=== PATIENT | female | born 1930 | race Caucasian/White ===

== ENCOUNTER 2018-03-16 10:31 | Inpatient (IN) | payer MEDICARE, BC ==
[~2018-03-16] VITALS: Ht 152.4 cm; Wt 76.9 kg
[~2018-03-16 10:31] MED LIST: BENZ1CAP34 PO; BRIM.2%O OU; CARV3.12 PO; CYMB60CA PO; DICL1GEL; DIOV40TA PO; EXCETAB2; FURO1TAB93 PO; GAS-80CH CHEW; HYDR10TA16 PO; K-TA10TA5 PO; MULTTAB4; OSTETAB4; PANT20 PO; VITA100020 IM; VITA500C PO
[2018-03-16 10:34] VITALS: BP 122/65; PULSE 99; RESP 17; TEMP 97.6; O2SAT 97
[2018-03-16] MEDS ORDERED: SODIUM CHLORIDE 0.9% FLUSH 10 ML FLUSH IV FLUSH PRN ×2 (11:15→14:15)
[2018-03-16] MEDS ORDERED: SODIUM CHLOR 0.9% 1000 ML INJ 1,000 ML IV SCH (11:15)
[2018-03-16 11:36] VITALS: PULSE 87; RESP 16; O2SAT 95
[2018-03-16] MEDS ORDERED: LATA0.002 EACH EYE (11:53)
[2018-03-16] MEDS ORDERED: DULO1CAP3 PO (11:53)
[2018-03-16] MEDS ORDERED: TIMO0.5S30 EACH EYE (11:53)
[2018-03-16] MEDS ORDERED: FURO20TA PO (11:53)
[2018-03-16] MEDS ORDERED: SODIUM CHLORID 0.9% 500 ML INJ 500 ML IV ONE (12:00)
[2018-03-16] MEDS ORDERED: IOHEXOL 350 MG/ML 10 ML VIAL (for RAD DIAG) IVCONTRAST ONE (12:06)
[2018-03-16 12:07] LABS: AUTOMATED NEUTROPHIL # 7.3 TH/MM3 (1.8-7.7); BASOPHIL % 0.3 % (0.0-2.0); EOSINOPHIL # 0.1 TH/MM3 (0-0.4); EOSINOPHIL % 0.6 % (0.0-4.0); HEMATOCRIT 32.2 % (35.0-46.0); HEMOGLOBIN 10.6 GM/DL (11.6-15.3); LYMPH % 7.2 % (9.0-44.0); LYMPHOCYTE # 0.7 TH/MM3 (1.0-4.8); MEAN CELL VOLUME 87.4 FL (80.0-100.0); MEAN CORPUSCULAR HEMOGLOBIN 28.6 PG (27.0-34.0); MEAN CORPUSCULAR HGB CONC 32.8 % (32.0-36.0); MEAN PLATELET VOLUME 7.8 FL (7.0-11.0); MONO % 12.9 % (0.0-8.0); MONOCYTE # 1.2 TH/MM3 (0-0.9); PLATELET COUNT 361 TH/MM3 (150-450); RED BLOOD COUNT 3.69 MIL/MM3 (4.00-5.30); RED CELL DISTRIBUTION WIDTH 15.3 % (11.6-17.2); WHITE BLOOD COUNT 9.2 TH/MM3 (4.0-11.0)
[2018-03-16 12:20] LABS: INTERNATIONAL NORMALIZED RATIO 1.1 RATIO; PROTHROMBIN TIME - PATIENT 11.3 SEC (9.8-11.6)
[2018-03-16 12:28] LABS: ALKALINE PHOSPHATASE 96 U/L (45-117); ALT (GPT) 16 U/L (10-53); TOTAL BILIRUBIN ADULT 0.9 MG/DL (0.2-1.0); TOTAL PROTEIN 6.3 GM/DL (6.4-8.2)
[2018-03-16 12:29] LABS: ALBUMIN 2.2 GM/DL (3.4-5.0); AST (GOT) 43 U/L (15-37); BLOOD UREA NITROGEN 16 MG/DL (7-18); CALCIUM 8.9 MG/DL (8.5-10.1); CHLORIDE 93 MEQ/L (98-107); CREATININE 0.88 MG/DL (0.50-1.00); GLOMERULAR FILTRATION RATE 61 ML/MIN (>89); GLUCOSE,RANDOM 115 MG/DL (74-106); SODIUM (NA) 132 MEQ/L (136-145)
--- NOTE | 2018-03-16 12:33 | PD ---
HPI Chief Complaint: GI Complaint Time Seen by Provider: 11:27 Travel History International Travel<30 days: No Contact w/Intl Traveler<30days: No Traveled to known affect area: No History of Present Illness HPI 87-year-old female that presents to the ED for evaluation of abdominal cramping , diarrhea, hemorrhoids, ulcers to her buttocks as well as loss of 30 pounds without trying. Patient has a significant history of colitis, diverticulitis and proctitis and follows with different doctors for this. She apparently was last seen 3 weeks ago at [facility] where she had a workup and showed that she may have colitis and she was started on Flagyl and other medications. She was doing okay but for the past week she has been progressively worsening. The noticed that she has been feeling more weak. Family provides most of the information. Patient complains of abdominal cramping when she has a stool when she had abdominal cramping this morning. Per family she has had foul-smelling stool for the past couple of days. She currently complains of no pain. Per family she is been losing her appetite. She does have a history of non-Hodgkin's lymphoma and appears to follow with multiple doctors were all in usually [facility]. She apparently supposed to follow with Dr. Hayden for colorectal next week but the family is concerned that the patient is not improving so they wanted to come here to get checked. Patient states that she has been having chills and sweats. Per family and patient last had chemo last year. She follows with oncologist who recently had a PET scan that only show one spot in her back and currently she is not taking any chemotherapy. She denies any other medical issues. She takes no blood thinners. They have not noticed any blood in her stool but noticed that is very foul-smelling and she gets it frequently. PFSH Past Medical History Arthritis: Yes Blood Disorders: No Depression: Yes Cancer: Yes (LEFT BREAST CANCER. NON-HODKINS LYMPHOMA) Cardiovascular Problems: Yes Chemotherapy: No Congestive Heart Failure: Yes COPD: Yes Diabetes: No Diminished Hearing: No Endocrine: No Gastrointestinal Disorders: Yes GERD: Yes Glaucoma: Yes Genitourinary: No Hiatal Hernia: Yes Hypertension: Yes Medical other: Yes (DIVERTICULITIS, DIVERLICULOSIS, COLITIS ) Musculoskeletal: Yes (HERNIATED DISC LOWER BACK) Neurologic: No Psychiatric: Yes Reproductive: No Respiratory: Yes Radiation Therapy: Yes (1994 FOR BREAST CA) Thyroid Disease: No ?: Not Menopausal: Yes Past Surgical History Abdominal Surgery: No AICD: No Cardiac Surgery: No Cholecystectomy: Yes Ear Surgery: No Endocrine Surgery: No Eye Surgery: Yes (CATARACT SURGERY) Genitourinary Surgery: No Gynecologic Surgery: No Joint Replacement: Yes (BILAT KNEE REPLACEMENT) Oral Surgery: No Pacemaker: No Thoracic Surgery: No Tonsillectomy: Yes Other Surgery: Yes (L LUMPECTOMY) Social History Alcohol Use: Yes (BEER OR WINE OCCASIONALLY) Tobacco Use: No Substance Use: No Allergies-Medications (Allergen,Severity, Reaction): Coded Allergies: Sulfa (Sulfonamide Antibiotics) (Unverified Allergy, Severe, Rash, 03/16/18) Reported Meds & Prescriptions Reported Meds & Active Scripts Active Reported Latanoprost Opth Drops (Latanoprost) 0.005% Drops 1 Drop EACH EYE HS Refrigerate until opened. Timolol Opth Drops 0.5 % Soln 1 Drop EACH EYE BID Furosemide 20 Mg Tab 20 Mg PO DAILY Duloxetine DR (Duloxetine HCl) 60 Mg Capdr 60 Mg PO DAILY Review of Systems Except as stated in HPI: all other systems reviewed are Neg Physical Exam Narrative GENERAL: SKIN: Warm and dry. HEAD: Atraumatic. Normocephalic. EYES: Pupils equal and round. No scleral icterus. No injection or drainage. ENT: No nasal bleeding or discharge. Mucous membranes pink and moist. Tongue is midline. No uvula deviation. NECK: Trachea midline. No JVD. CARDIOVASCULAR: Regular rate and rhythm. No murmurs, S3, S4. RESPIRATORY: No accessory muscle use. Clear to auscultation. Breath sounds equal bilaterally. GASTROINTESTINAL: Abdomen soft, non-tender, nondistended. Hepatic and splenic margins not palpable. Rectal exam: Done with female nurse present at all times. She has multiple significant hemorrhoids external and internal noted on exam. No active bleeding or red blood noted Hemoccult was done and was positive. Foul-smelling stool. Patient has a least 3 different ulcer-like lesions on her buttocks around the rectum. MUSCULOSKELETAL: Extremities without clubbing, cyanosis, or edema. No obvious deformities. Full range of motion of the upper and lower extremities bilaterally. 2+ pulses bilaterally. NEUROLOGICAL: Awake and alert. No obvious cranial nerve deficits. Motor grossly within normal limits. Five out of 5 muscle strength in the arms and legs. Normal speech. PSYCHIATRIC: Appropriate mood and affect; insight and judgment normal. Data Data Last Documented VS Vital Signs Date Time Temp Pulse Resp B/P (MAP) Pulse Ox O2 Delivery O2 Flow Rate FiO2 03/16/18 11:36 87 16 95 Room Air 03/16/18 10:34 97.6 122/65 (84) Orders Orders Complete Blood Count With Diff (03/16/18 11:15) Comprehensive Metabolic Panel (03/16/18 11:15) Lipase (03/16/18 11:15) Lactic Acid (03/16/18 11:15) Prothrombin Time / Inr (Pt) (03/16/18 11:15) Act Partial Throm Time (Ptt) (03/16/18 11:15) Urinalysis - C+S If Indicated (03/16/18 11:15) Iv Access Insert/Monitor (03/16/18 11:15) Ecg Monitoring (03/16/18 11:15) Oximetry (03/16/18 11:15) Sodium Chlor 0.9% 1000 Ml Inj (Ns 1000 M (03/16/18 11:15) Sodium Chloride 0.9% Flush (Ns Flush) (03/16/18 11:15) Electrocardiogram (03/16/18 11:15) Blood Culture (03/16/18 11:15) Sodium Chlorid 0.9% 500 Ml Inj (Ns 500 M (03/16/18 12:00) Type And Screen (03/16/18 11:50) Enteric Path (Stool) (03/16/18 11:50) Labs Laboratory Tests Test 03/16/18 11:30 White Blood Count 9.2 TH/MM3 Red Blood Count 3.69 MIL/MM3 Hemoglobin 10.6 GM/DL Hematocrit 32.2 % Mean Corpuscular Volume 87.4 FL Mean Corpuscular Hemoglobin 28.6 PG Mean Corpuscular Hemoglobin Concent 32.8 % Red Cell Distribution Width 15.3 % Platelet Count 361 TH/MM3 Mean Platelet Volume 7.8 FL Neutrophils (%) (Auto) 79.0 % Lymphocytes (%) (Auto) 7.2 % Monocytes (%) (Auto) 12.9 % Eosinophils (%) (Auto) 0.6 % Basophils (%) (Auto) 0.3 % Neutrophils # (Auto) 7.3 TH/MM3 Lymphocytes # (Auto) 0.7 TH/MM3 Monocytes # (Auto) 1.2 TH/MM3 Eosinophils # (Auto) 0.1 TH/MM3 Basophils # (Auto) 0.0 TH/MM3 CBC Comment DIFF FINAL Differential Comment Prothrombin Time 11.3 SEC Prothromb Time International Ratio 1.1 RATIO Activated Partial Thromboplast Time 26.4 SEC Blood Urea Nitrogen 16 MG/DL Creatinine 0.88 MG/DL Random Glucose 115 MG/DL Total Protein 6.3 GM/DL Albumin 2.2 GM/DL Calcium Level 8.9 MG/DL Alkaline Phosphatase 96 U/L Aspartate Amino Transf (AST/SGOT) 43 U/L Alanine Aminotransferase (ALT/SGPT) 16 U/L Total Bilirubin 0.9 MG/DL Sodium Level 132 MEQ/L Potassium Level 4.7 MEQ/L Chloride Level 93 MEQ/L Carbon Dioxide Level 28.0 MEQ/L Anion Gap 11 MEQ/L Estimat Glomerular Filtration Rate 61 ML/MIN Lactic Acid Level 1.8 mmol/L Lipase 61 U/L [facility] Medical Decision Making Medical Screen Exam Complete: Yes Emergency Medical Condition: Yes Medical Record Reviewed: Yes Interpretation(s) CBC & BMP Diagram 03/16/18 11:30 Total Protein 6.3 L, Albumin 2.2 L, Calcium Level 8.9, Alkaline Phosphatase 96, Aspartate Amino Transf (AST/SGOT) 43 H, Alanine Aminotransferase (ALT/SGPT) 16, Total Bilirubin 0.9 Differential Diagnosis Acute diverticulitis versus colitis versus diarrhea versus generalized weakness versus cancer versus rectal bleeding versus GI bleed Narrative Course 87-year-old female that presents to the ED for evaluation of diarrhea and loss of weight. Patient was properly examined and was found to have signs and symptoms concerning for GI bleed. Rectal exam was done with female nurse present and does show Hemoccult positive. Very foul-smelling stool. Definite concern for infection versus GI bleed. Patient does have multiple hemorrhoids but there is no elena blood on the exam so this appears to be less likely related to this. She will be started on GI Protonix and IV fluids that she does appear to be somewhat dehydrated. Labs and imaging order. Case was discussed with my attending Dr. Cooper who evaluated the patient himself and recommends admission for GI bleed workup and possible diverticulitis as well as stool studies. My attending himself evaluated the patient and agrees with plan. Patient will be admitted to Dr. Morales who agrees to admission. HemaPrompt Point of Care Internal Pos. & Neg. Controls: Passed Fecal Specimen Occult Blood: Positive Diagnosis Primary Impression: GI bleed Qualified Codes: K92.2 - Gastrointestinal hemorrhage, unspecified Additional Impressions: Diarrhea Qualified Codes: R19.7 - Diarrhea, unspecified Weakness Admitting Information Admitting Physician Requests: Observation Georgi Reina Mar 16, 2018 12:33
[2018-03-16] MEDS ORDERED: PANTOPRAZOLE INJ 80 MG in SODIUM CHLORIDE 0.9% INJ 100 ML IV SCH (12:45)
[2018-03-16] MEDS ORDERED: DIATRIZOATE MEGLUM/DIATRIZOATE SOD 9 ML CUP ONE (12:50)
[2018-03-16] MEDS ORDERED: NALOXONE HCL 0.4 MG/ML AMP IV PUSH PRN (14:15)
[2018-03-16] MEDS ORDERED: ACETAMINOPHEN 325 MG TAB PO PRN (14:15)
[2018-03-16 14:23] VITALS: BP 124/62
--- NOTE | 2018-03-16 14:25 | HHI.HP ---
[facility] Primary Care Physician Unknown Admission Diagnosis acute GI bleed, Diarrhea, loss of weight Diagnoses: Chief Complaint: Abdominal pain, diarrhea, weight loss, lack of appetite Travel History International Travel<30 Days: No Contact w/Intl Traveler <30 Da: No Traveled to Known Affected Are: No History of Present Illness This is an 87-year-old female with extensive past medical history as stated below who presented to the emergency department complaining of abdominal cramping, diarrhea, hemorrhoids and ulcers to her buttocks as well as loss of 30 pounds in the past 2 months. The patient has significant history of colitis , diverticulitis and proctitis and follows up with different doctors for this. Apparently the patient was seen 3 weeks ago in the [facility] where she had a CT scan of the abdomen which showed colitis and was started on Flagyl as per the family report. The patient was doing fine until about 1 week ago when she was noted to be having diarrhea as well as abdominal cramping with decreased appetite. Family describes also foul-smelling stool with mucus. The patient currently complains of some nausea caused by the oral contrast that she is taking for the CT abdomen ordered by the emergency department physician and mild abdominal pain which is diffuse with distention. Patient family member states that this morning the patient had some stool mixed with bright red blood per rectum which she has been having. Family also describes the patient has been having chills and sweats. Per family and patient patient had chemo last year. The patient is not on blood thinners. Review of Systems As per HPI, other systems reviewed by me and negative Past Family Social History Past Medical History 1. Diverticulitis. 2. Diverticulosis. 3. Osteoarthritis of the neck. 4. Non-Hodgkin lymphoma status post chemotherapy. 5. History of breast cancer. 6. Perianal wounds. 7. History of cardiac arrest during a colonoscopic procedure. 8. Proctitis. 9. Congestive heart failure. Past Surgical History 1. The patient has a right-sided port. 2. Lumpectomy. 3. 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 4. Cholecystectomy. Reported Medications Reported Meds & Active Scripts Active Reported Latanoprost Opth Drops (Latanoprost) 0.005% Drops 1 Drop EACH EYE HS Refrigerate until opened. Timolol Opth Drops 0.5 % Soln 1 Drop EACH EYE BID Furosemide 20 Mg Tab 20 Mg PO DAILY Duloxetine DR (Duloxetine HCl) 60 Mg Capdr 60 Mg PO DAILY Allergies: Coded Allergies: Sulfa (Sulfonamide Antibiotics) (Unverified Allergy, Severe, Rash, 03/16/18) Active Ordered Medications Current Medications Medications (Trade) Dose Ordered Sig/Latoya Route Start Time Stop Time Status Last Admin (NS Flush) 2 ml UNSCH PRN IV FLUSH 03/16/18 11:15 03/16/18 11:50 Pantoprazole Sodium 80 mg/ Sodium Chloride 100 ml @ 10 mls/hr CONTINUOUS IV 03/16/18 12:45 03/16/18 12:59 Family History Since mother had polycystic kidney disease. Patient's father from unknown reasons. Social History The patient does not currently actively smoke. She is a former smoker and quit in 1997. The patient is a social drinker. Denies illicit drug use. The patient is a 1 and lives with her daughter. Physical Exam Vital Signs Vital Signs Date Time Temp Pulse Resp B/P (MAP) Pulse Ox O2 Delivery O2 Flow Rate FiO2 03/16/18 11:36 87 16 95 Room Air 03/16/18 10:34 97.6 99 17 122/65 (84) 97 Physical Exam GENERAL: This is a well-nourished, well-developed patient, in no apparent distress. SKIN: No rashes, ecchymoses or lesions. Cool and dry. right sided port without erythema or swelling. HEAD: Atraumatic. Normocephalic. No temporal or scalp tenderness. EYES: Pupils equal round and reactive. Extraocular motions intact. No scleral icterus. No injection or drainage. ENT: Nose without bleeding, purulent drainage or septal hematoma. Throat without erythema, tonsillar hypertrophy or exudate. Uvula midline. Airway patent. NECK: Trachea midline. No JVD or lymphadenopathy. Supple, nontender, no meningeal signs. CARDIOVASCULAR: Regular rate and rhythm without murmurs, gallops, or rubs. RESPIRATORY: Clear to auscultation. Breath sounds equal bilaterally. No wheezes , rales, or rhonchi. GASTROINTESTINAL: Abdomen soft, non-tender, nondistended. No hepato-splenomegaly , or palpable masses. No guarding. MUSCULOSKELETAL: Extremities without clubbing, cyanosis, or edema. No joint tenderness, effusion, or edema noted. No calf tenderness. Negative Homans sign bilaterally. NEUROLOGICAL: Awake and alert. Cranial nerves II through XII intact. Motor and sensory grossly within normal limits. Five out of 5 muscle strength in all muscle groups. Normal speech. : Perineal wounds without secretion. Large external hemorrhoid. Laboratory Laboratory Tests Test 03/16/18 11:30 White Blood Count 9.2 Red Blood Count 3.69 Hemoglobin 10.6 Hematocrit 32.2 Mean Corpuscular Volume 87.4 Mean Corpuscular Hemoglobin 28.6 Mean Corpuscular Hemoglobin Concent 32.8 Red Cell Distribution Width 15.3 Platelet Count 361 Mean Platelet Volume 7.8 Neutrophils (%) (Auto) 79.0 Lymphocytes (%) (Auto) 7.2 Monocytes (%) (Auto) 12.9 Eosinophils (%) (Auto) 0.6 Basophils (%) (Auto) 0.3 Neutrophils # (Auto) 7.3 Lymphocytes # (Auto) 0.7 Monocytes # (Auto) 1.2 Eosinophils # (Auto) 0.1 Basophils # (Auto) 0.0 CBC Comment DIFF FINAL Differential Comment Prothrombin Time 11.3 Prothromb Time International Ratio 1.1 Activated Partial Thromboplast Time 26.4 Blood Urea Nitrogen 16 Creatinine 0.88 Random Glucose 115 Total Protein 6.3 Albumin 2.2 Calcium Level 8.9 Alkaline Phosphatase 96 Aspartate Amino Transf (AST/SGOT) 43 Alanine Aminotransferase (ALT/SGPT) 16 Total Bilirubin 0.9 Sodium Level 132 Potassium Level 4.7 Chloride Level 93 Carbon Dioxide Level 28.0 Anion Gap 11 Estimat Glomerular Filtration Rate 61 Lactic Acid Level 1.8 Lipase 61 Date/Time Source Procedure Growth Status 03/16/18 11:30 Blood Peripheral Aerobic Blood Culture Pending Received 03/16/18 11:30 Blood Peripheral Anaerobic Blood Culture Pending Received 03/16/18 12:20 Stool Stool Pending Received Result Diagram: 03/16/18 1130 03/16/18 1130 Caprini VTE Risk Assessment Caprini VTE Risk Assessment: Mod/High Risk (score >= 2) VTE Pharm Contraindication: High risk for bleeding Caprini Risk Assessment Model Point Value = 1 Point Value = 2 Point Value = 3 Point Value = 5 Age 41-60 Minor surgery BMI > 25 kg/m2 Swollen legs Varicose veins or History of unexplained or recurrent spontaneous Oral contraceptives or hormone replacement Sepsis (< 1 month) Serious lung disease, including pneumonia (< 1 month) Abnormal pulmonary function Acute myocardial infarction Congestive heart failure (< 1 month) History of inflammatory bowel disease Medical patient at bed rest Age 61-74 Arthroscopic surgery Major open surgery (> 45 min) Laparoscopic surgery (> 45 min) Malignancy Confined to bed (> 72 hours) Immobilizing plaster cast Central venous access Age >= 75 History of VTE Family history of VTE Factor V Leiden Prothrombin [id number] Lupus anticoagulant Anticardiolipin antibodies Elevated serum homocysteine Heparin-induced thrombocytopenia Other congenital or acquired thrombophilia Stroke (< 1 month) Elective arthroplasty Hip, pelvis, or leg fracture Acute spinal cord injury (< 1 month) Prophylaxis Regimen Total Risk Factor Score Risk Level Prophylaxis Regimen 0-1 Low Early ambulation 2 Moderate Order ONE of the following: *Sequential Compression Device (SCD) *Heparin 5000 units SQ BID 3-4 Higher Order ONE of the following medications: *Heparin 5000 units SQ TID *Enoxaparin/Lovenox 40 mg SQ daily (WT < 150 kg, CrCl > 30 mL/min) *Enoxaparin/Lovenox 30 mg SQ daily (WT < 150 kg, CrCl > 10-29 mL/min) *Enoxaparin/Lovenox 30 mg SQ BID (WT < 150 kg, CrCl > 30 mL/min) AND/OR *Sequential Compression Device (SCD) 5 or more Highest Order ONE of the following medications: *Heparin 5000 units SQ TID (Preferred with Epidurals) *Enoxaparin/Lovenox 40 mg SQ daily (WT < 150 kg, CrCl > 30 mL/min) *Enoxaparin/Lovenox 30 mg SQ daily (WT < 150 kg, CrCl > 10-29 mL/min) *Enoxaparin/Lovenox 30 mg SQ BID (WT < 150 kg, CrCl > 30 mL/min) AND *Sequential Compression Device (SCD) Assessment and Plan Problem List: (1) Diarrhea ICD Code: R19.7 - Diarrhea, unspecified Status: Acute (2) Weakness ICD Code: R53.1 - Weakness Status: Acute (3) GI bleed ICD Code: K92.2 - Gastrointestinal hemorrhage, unspecified Status: Acute (4) CHF (congestive heart failure) ICD Code: I50.9 - Heart failure, unspecified (5) Glaucoma ICD Code: H40.9 - Unspecified glaucoma (6) Hyponatremia ICD Code: E87.1 - Hypo-osmolality and hyponatremia (7) Weight loss ICD Code: R63.4 - Abnormal weight loss Assessment and Plan 1. Abdominal pain/diarrhea/GI bleed Stool guaiac positive in the emergency department Follow-up CT abdomen and pelvis Pain control with oral Percocet if needed. Follow-up stool for C. difficile toxin PCR sent by ED. Continue Protonix drip. Clear liquid diet. Consult GI. 2. Weight loss Appetite decreased with close to 30 pounds weight loss in 2 months. Consult dietitian. 3. Hyponatremia/dehydration Likely due to hypovolemic hyponatremia due to decreased p.o. intake. Start on gentle IV fluids with normal saline. Monitor BMP. 4. Congestive heart failure Seems to be stable. Hold Lasix given dehydration. 5. Perianal wounds Consult wound care nurse. 6. Glaucoma Chronic. Seems to be stable. Continue latanoprost and timolol ophthalmic drops. 7. External hemorrhoid Patient has a large external hemorrhoid on exam. Consult colorectal surgery. Will consult Dr. Escalante who has previously seen the patient as an outpatient. 8. History of cardiac arrest Patient has had a cardiac arrest while having a colonoscopy. Monitor on telemetry. EKG reviewed by me shows sinus rhythm with a ventricular rate of 87 bpm, QTC of 417, no ST-T changes suggestive of active ischemia. DVT prophylaxis: SCDs, no chemoprophylaxis given positive stool guaiac and reports of GI bleeding. Code Status Full code Discussed Condition With Patient, family, ED physician. Problem Qualifiers (1) Diarrhea: Qualified Codes: R19.7 - Diarrhea, unspecified (2) GI bleed: Qualified Codes: K92.2 - Gastrointestinal hemorrhage, unspecified Cholo Bustos MD Mar 16, 2018 14:25
--- NOTE | 2018-03-16 14:50 | RADRPT ---
EXAM DATE: 03/16/2018 2:39 PM EDT AGE/SEX: 87 years / Female INDICATIONS: Abdominal pain, weakness and weight loss 30lbs. CLINICAL DATA: This is the patient's initial encounter. Patient reports that signs and symptoms have been present for 1 day and indicates a pain score of 3/10. MEDICAL/SURGICAL HISTORY: Cardiovascular disease. Hypertension. Chronic obstructive pulmonary disease. hiatal hernia, left breast cancer, non hodgkin's lymphoma, diverticulitis Cholecystectomy . ORAL CONTRAST: Prescribed oral contrast ingested. RADIATION DOSE: 12.09 CTDI (mGy) COMPARISON: No prior exams available for comparison. TECHNIQUE: Multiple contiguous axial images were obtained through the abdomen and pelvis following b olus infusion of 80 ml Omnipaque 350 (iohexol) nonionic water-soluble contrast as a single exam dos e. Prescribed oral contrast ingested. Using automated exposure control and adjustment of the mA and/ or kV according to patient size, the radiation dose was kept as low as reasonably achievable to obtai n optimal diagnostic quality images. FINDINGS: Lower Lungs: The visualized lower lungs are clear. Liver: There is a rounded area of decreased density involving the central portion of segment 4 of the liver adjacent to the gallbladder fossa. This measures 2.4 x 2.1 x 1.8 cm. There is no dilation of t he biliary tree. Gallbladder is surgically absent. Spleen: Homogeneous density without enlargement. Pancreas: There is a 1.5 cm cystic structure exophytic from the inferior margin of the pancreatic he ad. It is smoothly marginated. The pancreas is fatty replaced most pronounced within the pancreatic h ead. No ductal dilatation.. Kidneys: Normal in size and shape. 2 mm nonobstructing renal stone involving the lower pole the righ t kidney. A small cortical renal cyst involving the lower pole the right kidney. No evidence of mass or hydronephrosis. Adrenal Glands: Unremarkable. Aorta: The aorta and proximal iliac vessels are grossly unremarkable without aneurysmal dilation. Bowel/Mesentery: There is circumferential wall thickening involving the sigmoid colon and distal abby cending colon with mild stranding of the adjacent fat. Multiple diverticula are noted. The remaining bowel structures are unremarkable. No free air or free fluid. Stomach is unremarkable. Abdominal Wall: Intact. Retroperitoneum: No evidence of adenopathy in the retrocrural, para-aortic, or deep pelvic regions. Bladder: Contours are smooth. Reproductive Organs: No abnormal masses or calcifications seen. Inguinal: The inguinal region is unremarkable without evidence of adenopathy. Bony Structures: A scoliotic and degenerative spine.. CONCLUSION: 1. Acute distal descending and sigmoid inflammatory change. Differential diagnostic considerations i nclude ischemic colitis as well as ulcerative colitis. No perforation, abscess, or obstruction. 2. Nonspecific 2.4 cm area of decreased density involving the central portion of the liver. This may simply relate to focal fatty infiltration. I cannot exclude a mass. MRI could further differentiate. 3. 1.5 cm cystic lesion exophytic from the head of the pancreas projecting inferiorly. This is poorl y characterized on this style exam. At some point an MRI of the pancreas is suggested to further asse ss. 4. 2 mm nonobstructing right renal stone. Electronically signed by: Doroteo Donovan MD 03/16/2018 2:48 PM EDT
[2018-03-16 16:00] VITALS: BP 174/76; PULSE 95; RESP 18; TEMP 97.9; O2SAT 95
[2018-03-16] MEDS: MESALAMINE 250 MG CAP PO SCH ×2 (18:57→22:28)
--- NOTE | 2018-03-16 19:03 | MB ---
cc: Allen Alfonso MD, DATE: 03/16/2018 CHIEF COMPLAINT: Diarrhea, anal pain, abdominal cramping, rectal bleeding. HISTORY OF PRESENT ILLNESS: This patient is well known to me for many years. She has recently developed some colitis, which was seen in my office on sigmoidoscopy examination. At that time, she had fairly short segment proctitis in her rectum consistent with either ulcerative proctitis or Crohn's disease. The patient was treated with Canasa suppositories but she says because of the pain, she has stopped them. She then was seen by her underground roof bolter, Dr. Flores, who took some biopsies of the perianal skin because of pain and ulcerations in the skin that were superficial. She now has some holes posterior to her anal canal consistent with Crohn's or just skin breakdown from her diarrhea. Really, she says that her diarrhea is about twice a day, loose stool. Otherwise, she does leak whenever she sits, but she does have poor anal tone and large hemorrhoids. She did have a deep posterior fissure previously, consistent with either Crohn's disease or ulcerative colitis as well as her diarrhea. The patient's history dates back to a year or so ago when she was in [facility] and she developed a GI bleed consistent with diverticulosis. She underwent colonoscopy at that time had a complete documented cardiac arrest; however, was resuscitated. She has been unwilling and unable to have a colonoscopy since then. Of note, about 3 weeks ago, on 02/23/2018 I saw her in consultation in the emergency department at [facility] and at that time, she had superficial skin ulcerations around her perineum along with large hemorrhoids, along with this proctitis that was palpable once again. She was seen by gastroenterology, Dr. Allen Hernandez, who agreed with the Canasa suppositories. He also empirically started on Flagyl. She took the Flagyl, but did not take the Canasa suppositories for more than a week because she said she still had anal pain. She called my office about a week or so ago for oral mesalamine and a prescription was given; however, the patient said that her copay was $900, so she did not take it. She says that her abdominal pain simply consists of cramps 2 times a day when she has to move her bowels. Otherwise, she does not really have any pain. Her main pain is her anal pain and burning in the skin region. CT scan done in [facility] and here both showed left-sided colitis. This is not consistent with ischemic colitis as it has been going on for several months and has not worsened or improved. PAST MEDICAL HISTORY: Otherwise negative. FAMILY HISTORY: Otherwise negative. SOCIAL HISTORY: Otherwise negative. REVIEW OF SYSTEMS: Otherwise negative. She is otherwise fairly healthy, 87 years old with excellent mentation. She says that her strength has weakened and she has lost about 30 pounds over the last several months, but she was previously obese. PHYSICAL EXAMINATION: GENERAL: Well-developed, well-nourished female, in no acute distress. SKIN: Warm and dry. HEENT: Extraocular muscles intact. NECK: Supple. ABDOMEN: Obese, soft, nontender, no masses. RECTAL EXAM: Inspection reveals 2 posterior skin holes, probably at her previous biopsy sites or just skin breakdown. It is possible that they are fistulas; however, there is no stool draining from them. Anteriorly is a small ulceration as well. She has large internal and external combined hemorrhoids. Digital exam is uncomfortable and she has a deep right posterior fissure between her hemorrhoids, which is painful and angry-appearing, as well as palpable proctitis and scarring in the lower rectum. This is consistent with my flexible sigmoidoscopy some months ago. EXTREMITIES: Full range of motion within normal limits. NEUROLOGIC: Grossly normal. IMPRESSION: Ulcerative proctosigmoiditis or Crohn's disease. PLAN: I am going to start her on prednisone 40 mg a day starting tomorrow morning, along with mesalamine 1000 mg b.i.d., specifically Pentasa 1000 mg p.o. q.i.d. and I am going to empirically start her on Diflucan, as she has had yeast infections in the past on prednisone. I may use some judicious use of Imodium and may well do a flexible sigmoidoscopy in the next couple of days if she remains here, otherwise I will see her as an outpatient in the office. I have talked with Dr. Morales and he agrees we are not going to do the CTA or MRA. I explained this all to the patient. She understands and concurs. She did say that she did not followup with Dr. Allen Hernandez as instructed after her visit to the emergency department in [facility] on 02/23/2018. MD KEVIN Pruitt/YUNG , 06:17 PM , 07:02 PM
[2018-03-16 20:00] VITALS: BP_SYST 72; PULSE 97; RESP 17; TEMP 98.4; O2SAT 93
[2018-03-16] MEDS ORDERED: ONDANSETRON ODT 4 MG TAB SL PRN (22:15)
[2018-03-16] MEDS: SODIUM CHLORIDE 0.9% FLUSH 10 ML FLUSH IV FLUSH SCH (22:37)
[2018-03-16] MEDS: PANTOPRAZOLE INJ 80 MG in SODIUM CHLORIDE 0.9% INJ 100 ML IV SCH (23:00)
[2018-03-17] VITALS (7 sets, daily range): BP systolic 120–187; BP diastolic 58–83; PULSE 73–107; RESP 16–18; TEMP 97.3–98.3; O2SAT 93–97
[2018-03-17] MEDS: PANTOPRAZOLE INJ 80 MG in SODIUM CHLORIDE 0.9% INJ 100 ML IV SCH (09:00)
[2018-03-17] MEDS: SODIUM CHLORIDE 0.9% FLUSH 10 ML FLUSH IV FLUSH SCH ×2 (09:00→20:22)
[2018-03-17] MEDS: FLUCONAZOLE 200 MG TAB PO SCH (09:36)
[2018-03-17] MEDS: MESALAMINE 250 MG CAP PO SCH ×4 (09:37→20:19)
[2018-03-17] MEDS: predniSONE 20 MG TAB PO SCH (09:37)
--- NOTE | 2018-03-17 11:45 | HHI.PR ---
Subjective Remarks in no acute distress. but she says that she's not feeling well. no fever. no abdominal pain, nausea/ diarrhea. Objective Vitals Vital Signs Date Time Temp Pulse Resp B/P (MAP) Pulse Ox O2 Delivery O2 Flow Rate FiO2 03/17/18 08:00 98.2 100 18 136/65 (88) 95 03/17/18 04:00 97.8 82 17 134/58 (83) 96 03/17/18 00:00 97.3 107 16 137/61 (86) 93 03/16/18 20:00 98.4 97 17 72/ 93 03/16/18 16:00 97.9 95 18 174/76 (108) 95 03/16/18 14:23 84 18 124/62 (82) 98 21 I/O 03/16/18 03/16/18 03/16/18 03/17/18 03/17/18 03/17/18 07:00 15:00 23:00 07:00 15:00 23:00 Intake Total 500 ml 600 ml Balance 500 ml 600 ml Intake Oral 600 ml IV Total 500 ml # Voids 3 # Bowel Movements 2 Result Diagram: 03/16/18 1130 03/16/18 1130 Imaging Last Impressions Abdomen/Pelvis CT 03/16/18 1247 Addendum Impressions: CONCLUSION: 1. Acute distal descending and sigmoid inflammatory change. Differential diagn ostic considerations include ischemic colitis as well as ulcerative colitis. No perforation, abscess, or obstruction. 2. Nonspecific 2.4 cm area of decreased density involving the central portion of the liver. This may simply relate to focal fatty infiltration. I cannot excl ude a mass. MRI could further differentiate. 3. 1.5 cm cystic lesion exophytic from the head of the pancreas projecting inf eriorly. This is poorly characterized on this style exam. At some point an MRI of the pancreas is suggested to further assess. 4. 2 mm nonobstructing right renal stone. Objective Remarks GENERAL: This is a well-nourished, well-developed patient, in no apparent distress. CARDIOVASCULAR: Regular rate and regular rhythm without murmurs, gallops, or rubs. RESPIRATORY: Clear to auscultation. Breath sounds equal bilaterally. No wheezes , rales, or rhonchi. GASTROINTESTINAL: Abdomen soft, non-tender, nondistended. Normal, active bowel sounds MUSCULOSKELETAL: Extremities without clubbing, cyanosis, or edema. NEURO: Alert & Oriented x4 to person, place, time, situation. Moves all ext x4 Medications and IVs Inpatient Medications Acetaminophen (Tylenol) 650 mg Q4H PRN PO TEMP > 100.4; Start 03/16/18 at 14:15 Fluconazole (Diflucan) 200 mg DAILY PO Last administered on 03/17/18at 09:36; Start 03/17/18 at 09:00 Mesalamine (Pentasa Sr) 1,000 mg QID PO Last administered on 03/17/18at 09:37; Start 03/16/18 at 18:00 Naloxone HCl (Narcan Inj) 0.4 mg UNSCH PRN IV PUSH SEE LABEL COMMENTS; Start at 14:15 Ondansetron HCl (Zofran Odt) 4 mg Q6H PRN SL nausea Last administered on at 22:30; Start 03/16/18 at 22:15 Pantoprazole Sodium 80 mg/ Sodium Chloride 100 ml @ 10 mls/hr Q10H IV ; Start 03/16/18 at 23:00 Prednisone (Deltasone) 40 mg DAILY PO Last administered on 03/17/18at 09:37; Start 03/17/18 at 09:00 Sodium Chloride (NS Flush) 2 ml BID IV FLUSH ; Start 03/16/18 at 21:00 A/P Problem List: (1) Diarrhea ICD Code: R19.7 - Diarrhea, unspecified Status: Acute (2) Weakness ICD Code: R53.1 - Weakness Status: Acute (3) GI bleed ICD Code: K92.2 - Gastrointestinal hemorrhage, unspecified Status: Acute (4) CHF (congestive heart failure) ICD Code: I50.9 - Heart failure, unspecified (5) Glaucoma ICD Code: H40.9 - Unspecified glaucoma (6) Hyponatremia ICD Code: E87.1 - Hypo-osmolality and hyponatremia (7) Weight loss ICD Code: R63.4 - Abnormal weight loss Assessment and Plan A/P 1. Abdominal pain/diarrhea/GI bleed- likely due to inflammatory bowel disease Stool guaiac positive in the emergency department started on prednisone and Pentasa Pain control with oral Percocet if needed. on Protonix colorectal surgery consult appreciated; sigmoidoscopy within the next couple of days vs outpatient. 2. Weight loss Appetite decreased with close to 30 pounds weight loss in 2 months. Consult dietitian. 3. Hyponatremia/dehydration Likely due to hypovolemic hyponatremia due to decreased p.o. intake. Start on gentle IV fluids with normal saline. Monitor BMP. 4. Congestive heart failure Seems to be stable. Hold Lasix given dehydration. 5. Perianal wounds Consulted wound care nurse. 6. Glaucoma Chronic. Seems to be stable. Continue latanoprost and timolol ophthalmic drops. 7. External hemorrhoid Patient has a large external hemorrhoid on exam. Consulted colorectal surgery. 8. History of cardiac arrest Patient has had a cardiac arrest while having a colonoscopy. Monitor on telemetry. EKG reviewed by me shows sinus rhythm with a ventricular rate of 87 bpm, QTC of 417, no ST-T changes suggestive of active ischemia. DVT prophylaxis: SCDs, no chemoprophylaxis given positive stool guaiac and reports of GI bleeding. consult PT. Discharge Planning when clinically improves- pending PT evaluation. Problem Qualifiers (1) Diarrhea: Qualified Codes: R19.7 - Diarrhea, unspecified (2) GI bleed: Qualified Codes: K92.2 - Gastrointestinal hemorrhage, unspecified Chidi Quiñonez MD Mar 17, 2018 11:45
[2018-03-17 13:15] LABS: BASOPHIL % 0.2 % (0.0-2.0); EOSINOPHIL % 0.2 % (0.0-4.0); HEMATOCRIT 30.2 % (35.0-46.0); HEMOGLOBIN 9.9 GM/DL (11.6-15.3); LYMPH % 4.4 % (9.0-44.0); LYMPHOCYTE # 0.3 TH/MM3 (1.0-4.8); MEAN CELL VOLUME 87.9 FL (80.0-100.0); MEAN CORPUSCULAR HEMOGLOBIN 28.7 PG (27.0-34.0); MEAN CORPUSCULAR HGB CONC 32.7 % (32.0-36.0); MEAN PLATELET VOLUME 7.8 FL (7.0-11.0); MONO % 3.7 % (0.0-8.0); MONOCYTE # 0.2 TH/MM3 (0-0.9); NEUT % 91.5 % (16.0-70.0); PLATELET COUNT 328 TH/MM3 (150-450); RED BLOOD COUNT 3.44 MIL/MM3 (4.00-5.30); RED CELL DISTRIBUTION WIDTH 15.5 % (11.6-17.2); WHITE BLOOD COUNT 6.6 TH/MM3 (4.0-11.0)
[2018-03-17] MEDS ORDERED: ENALAPRILAT 1.25 MG/ML VIAL IV PUSH PRN (13:30)
[2018-03-17 13:48] LABS: ALBUMIN 2.2 GM/DL (3.4-5.0); ALKALINE PHOSPHATASE 96 U/L (45-117); ALT (GPT) 11 U/L (10-53); AST (GOT) 12 U/L (15-37); BICARBONATE 30.5 MEQ/L (21.0-32.0); BLOOD UREA NITROGEN 11 MG/DL (7-18); CALCIUM 8.2 MG/DL (8.5-10.1); CHLORIDE 95 MEQ/L (98-107); CREATININE 0.61 MG/DL (0.50-1.00); GLOMERULAR FILTRATION RATE 92 ML/MIN (>89); GLUCOSE,RANDOM 105 MG/DL (74-106); SODIUM (NA) 135 MEQ/L (136-145); TOTAL BILIRUBIN ADULT 0.6 MG/DL (0.2-1.0); TOTAL PROTEIN 5.5 GM/DL (6.4-8.2)
--- NOTE | 2018-03-17 15:25 | PD.CONS ---
HPI History of Present Illness This is a 87 year old female who was admitted to the hospital on 03/16/2018 with symptoms of abdominal cramping weight loss of 30 pounds over the past 2 months, decreased appetite and diarrhea stools. Patient is awake and able to answer simple questions but is of fair to poor historian. Patient notes she has not been able to eat very much except for shakes that her daughter makes for her and also states that her diarrhea has improved since taking the little pill that was given to her by Dr. Escalante. Patient's heart rate is tachycardic between 100 and 107 and she does note some blood in her stools which seems to wax and wane. Currently patient does show some signs of nausea but no active vomiting, no constipation no headache. According to the record and the patient' s daughter patient has history of ulcerative colitis. According to the record patient's also had a history of diverticulitis and proctitis and has been on Flagyl recently. CT scan this admission shows 1.5 cm lesion on the head of the pancreas. (Lilliana Benson) PFSH Past Medical History According to the record 1. Diverticulitis. 2. Diverticulosis. 3. Osteoarthritis of the neck. 4. Non-Hodgkin lymphoma status post chemotherapy. 5. History of breast cancer. 6. Perianal wounds. 7. History of cardiac arrest during a colonoscopic procedure. 8. Proctitis. 9. Congestive heart failure. Past Surgical History According to the record 1. The patient has a right-sided port. 2. Lumpectomy. 3. 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 4. Cholecystectomy. (Lilliana Benson) Coded Allergies: Sulfa (Sulfonamide Antibiotics) (Unverified Allergy, Severe, Rash, 03/16/18) Medications Administered Medications Medications (Trade) Dose Ordered Sig/Latoya Route PRN Reason Start Time Stop Time Status Last Admin Dose Admin Prednisone (Deltasone) 40 mg DAILY PO 03/17/18 09:00 03/17/18 09:37 Mesalamine (Pentasa Sr) 1,000 mg QID PO 03/16/18 18:00 03/17/18 13:47 Fluconazole (Diflucan) 200 mg DAILY PO 03/17/18 09:00 03/17/18 09:36 Ondansetron HCl (Zofran Odt) 4 mg Q6H PRN SL nausea 03/16/18 22:15 03/16/18 22:30 Family History Per the record since mother had polycystic kidney disease. Patient's father from unknown reasons. No family history of colon cancer according to patient Social History According to the record she is a former smoker and quit in 1997. The patient is a social drinker. Denies illicit drug use. The patient is a 1 and lives with her daughter. (Lilliana Benson) Review of Systems Constitutional: COMPLAINS OF: Fatigue, Weight loss (Lilliana Benson) GI Exam Vitals I&O Vital Signs Date Time Temp Pulse Resp B/P (MAP) Pulse Ox O2 Delivery O2 Flow Rate FiO2 03/17/18 12:00 98.3 87 18 187/77 (113) 95 170/60 (96) 03/17/18 08:00 98.2 100 18 136/65 (88) 95 03/17/18 04:00 97.8 82 17 134/58 (83) 96 03/17/18 00:00 97.3 107 16 137/61 (86) 93 03/16/18 20:00 98.4 97 17 72/ 93 03/16/18 16:00 97.9 95 18 174/76 (108) 95 I/O 03/16/18 03/16/18 03/16/18 03/17/18 03/17/18 03/17/18 07:00 15:00 23:00 07:00 15:00 23:00 Intake Total 500 ml 600 ml Balance 500 ml 600 ml Intake Oral 600 ml IV Total 500 ml # Voids 3 # Bowel Movements 2 Imaging Last Impressions Abdomen/Pelvis CT 03/16/18 1247 Signed Impressions: CONCLUSION: 1. Acute distal descending and sigmoid inflammatory change. Differential diagn ostic considerations include ischemic colitis as well as ulcerative colitis. No perforation, abscess, or obstruction. 2. Nonspecific 2.4 cm area of decreased density involving the central portion of the liver. This may simply relate to focal fatty infiltration. I cannot excl ude a mass. MRI could further differentiate. 3. 1.5 cm cystic lesion exophytic from the head of the pancreas projecting inf eriorly. This is poorly characterized on this style exam. At some point an MRI of the pancreas is suggested to further assess. 4. 2 mm nonobstructing right renal stone. Laboratory Test 03/17/18 12:40 White Blood Count 6.6 TH/MM3 Red Blood Count 3.44 MIL/MM3 Hemoglobin 9.9 GM/DL Hematocrit 30.2 % Mean Corpuscular Volume 87.9 FL Mean Corpuscular Hemoglobin 28.7 PG Mean Corpuscular Hemoglobin Concent 32.7 % Red Cell Distribution Width 15.5 % Platelet Count 328 TH/MM3 Mean Platelet Volume 7.8 FL Neutrophils (%) (Auto) 91.5 % Lymphocytes (%) (Auto) 4.4 % Monocytes (%) (Auto) 3.7 % Eosinophils (%) (Auto) 0.2 % Basophils (%) (Auto) 0.2 % Neutrophils # (Auto) 6.0 TH/MM3 Lymphocytes # (Auto) 0.3 TH/MM3 Monocytes # (Auto) 0.2 TH/MM3 Eosinophils # (Auto) 0.0 TH/MM3 Basophils # (Auto) 0.0 TH/MM3 CBC Comment DIFF FINAL Differential Comment Blood Urea Nitrogen 11 MG/DL Creatinine 0.61 MG/DL Random Glucose 105 MG/DL Total Protein 5.5 GM/DL Albumin 2.2 GM/DL Calcium Level 8.2 MG/DL Alkaline Phosphatase 96 U/L Aspartate Amino Transf (AST/SGOT) 12 U/L Alanine Aminotransferase (ALT/SGPT) 11 U/L Total Bilirubin 0.6 MG/DL Sodium Level 135 MEQ/L Potassium Level 3.1 MEQ/L Chloride Level 95 MEQ/L Carbon Dioxide Level 30.5 MEQ/L Anion Gap 10 MEQ/L Estimat Glomerular Filtration Rate 92 ML/MIN Date/Time Source Procedure Growth Status 03/16/18 11:30 Blood Peripheral Aerobic Blood Culture - Preliminary NO GROWTH IN 1 DAY Resulted 03/16/18 11:30 Blood Peripheral Anaerobic Blood Culture - Preliminary NO GROWTH IN 1 DAY Resulted 03/16/18 12:20 Stool Stool - Final NO ENTERIC PATHOGENS DETECTED BY PCR... Complete Physical Examination HEENT:normocephalic; atraumatic; pale skin color NECK: Neck is supple, . CHEST: No cough no shortness of breath, mild diminished lung sounds CARDIAC: Tachycardic rhythm heart rate between 100 and 107 ABDOMEN: Round, soft, mild minimal distention, occasional tenderness in her lower abdomen; bowel sounds are present in all four quadrants. EXTREMITIES: No lower extremity edema. SKIN: Turgor thin; no rash; pale, RECEIVING ASSOCIATE STORE: Answers simple questions but does show poor historian (Lilliana Benson) Assessment and Plan Plan Gastroenterology consult for abdominal pain, diarrhea, with bloody stools, positive Hemoccult. Patient also notes decreased appetite and a 30 pound weight loss over the last 2 months. Patient has significant history of ulcerative colitis, diverticulitis and proctitis and has been followed per Dr. Escalante who is also seeing her in consultation in the hospital CT of the abdomen shows acute distal descending and sigmoid inflammatory change which could be related to ischemic colitis as well as ulcerative colitis no perforation abscess or obstruction Nonspecific 2.4 cm area of decreased density around the central portion of the liver which could be a local fatty infiltration but cannot exclude mass 1.5 cm cystic lesion from the head of the pancreas at some point MRI of the pancreas is suggested to further evaluate. Current labs show hemoglobin 10.6, INR 1.1, Currently Dr. Escalante's plan is to place patient on home prednisone 40 mg a day and add mesalamine 1000 mg twice daily specifically Pentasa. Also start her on Diflucan due to yeast infections in the past. Imodium. May also do flex sigmoid within the next couple of days if she continues in the hospital if not he will see her as an outpatient at this point no plan for CTA or MRA and all of this has been explained to the patient. Patient states intolerant of IV Protonix related to nausea. Transitioned to lower p.o. dose to check for toleration. Plan Diet, as per attending, encouraged patient to eat as much as she could tolerate and to maintain her hydration Supportive care to patient and family, encouraged probiotics and increase fiber outpatient Monitor labs if needed PPI p.o. Patient is being cared for per Dr. Mcqueen who has diagrammed out her plan of care GI is available only if needed will sign off Patient was seen per myself and Dr. Ríos, note was written on his behalf (Lilliana Benson) Physician Comments Agree with above as planned. Thank you for the consult. (Zora Ríos MD) Lilliana Benson Mar 17, 2018 15:25 Zora Ríos MD Mar 18, 2018 11:59
--- NOTE | 2018-03-17 15:45 | HHI.PR ---
Subjective Remarks Says she feels much better after Prednisone. Pentasa started. No Pain,bleeding or diarrhea. Objective Vital Signs Date Time Temp Pulse Resp B/P (MAP) Pulse Ox O2 Delivery O2 Flow Rate FiO2 03/17/18 12:00 98.3 87 18 187/77 (113) 95 170/60 (96) 03/17/18 08:00 98.2 100 18 136/65 (88) 95 03/17/18 04:00 97.8 82 17 134/58 (83) 96 03/17/18 00:00 97.3 107 16 137/61 (86) 93 03/16/18 20:00 98.4 97 17 72/ 93 03/16/18 16:00 97.9 95 18 174/76 (108) 95 I/O 03/16/18 03/16/18 03/16/18 03/17/18 03/17/18 03/17/18 07:00 15:00 23:00 07:00 15:00 23:00 Intake Total 500 ml 600 ml Balance 500 ml 600 ml Intake Oral 600 ml IV Total 500 ml # Voids 3 # Bowel Movements 2 Result Diagram: 03/17/18 1240 03/17/18 1240 Objective Remarks VS-S Abd: obese,soft,nontender. Assessment and Plan Assessment and Plan Stable Proctosigmoiditis Prednisone,Mesalamine Allen Alfonso MD Mar 17, 2018 15:44
--- NOTE | 2018-03-17 15:58 | EKG ---
Date Performed: 03/16/2018 Time Performed: 11:17:29 PTAGE: 87 years EKG: Sinus rhythm NORMAL ECG Since the PREVIOUS TRACING , no significant change noted PREVIOUS TRACIN10/20/2007 18.52 DOCTOR: Hector Terrazas Interpretating Date/Time 03/17/2018 15:56:16
--- NOTE | 2018-03-17 16:47 | PD.WCN.NOT ---
Wound Consult Description: Wound consult ordered by for wound management Communicated with: Kasey dunn, Recommendation: 1. Cleanse perianal/genital area with remedy barrier soft clothe wipes. 2. Apply thick layer of Calazime cream to perianal area BID or after stooling. 3. Follow up with out patient wound center if needed. Additional Information: Patient was seen today by video games storywriter and Kasey dunn for wound management.Patient alert and oriented x4.Patient was able to repositioned self in bed to left side .Cable Television Access Coordinator was able to visualize entire anal/buttocks area.Patient noted to have large external hemorrhoid with no bleeding or exudate noted.Patient has 3 superficial moist perianal ulcer appearing wounds.Wound base are moist pink tissue with no exudate or odor noted.Periwound are dry intact.No signs or symptoms of infection noted.Patient able to independently perform pericare.Remedy soft cloth barrier wipes provided for patient and Calazime applied to perianal area. Patient tolerated wound care well.No further questions or concern upon writers departure. Cassandra Lima [facility] Mar 17, 2018 16:47
[2018-03-17] MEDS: PANTOPRAZOLE SOD 20 MG DELAYED RELEASE TAB PO SCH (18:17)
[2018-03-17] MEDS: TIMOLOL MALEATE 0.5% OPHT SOLN 5 ML BTL EACH EYE SCH (22:07)
[2018-03-17] MEDS: LATANOPROST 0.005% OPHT SOLN 2.5 ML BTL EACH EYE SCH (22:07)
[2018-03-18 04:00] VITALS: BP 141/96; PULSE 80; RESP 18; TEMP 98.1; O2SAT 98
[2018-03-18 07:57] VITALS: BP 116/55; PULSE 87; RESP 17; TEMP 97.6; O2SAT 97
[2018-03-18] MEDS: TIMOLOL MALEATE 0.5% OPHT SOLN 5 ML BTL EACH EYE SCH ×2 (08:14→20:13)
[2018-03-18] MEDS: PANTOPRAZOLE SOD 20 MG DELAYED RELEASE TAB PO SCH (08:15)
[2018-03-18] MEDS: MESALAMINE 250 MG CAP PO SCH ×4 (08:15→20:10)
[2018-03-18] MEDS: FLUCONAZOLE 200 MG TAB PO SCH (08:16)
[2018-03-18] MEDS: DULoxetine HCl DR 60 MG CAP PO SCH (08:16)
[2018-03-18] MEDS: predniSONE 20 MG TAB PO SCH (08:16)
[2018-03-18] MEDS: SODIUM CHLORIDE 0.9% FLUSH 10 ML FLUSH IV FLUSH SCH ×2 (08:16→20:13)
--- NOTE | 2018-03-18 10:50 | HHI.PR ---
Subjective Remarks in no acute distress. afebrile.says that had small rectal bleed this morning. no abdominal pain, nausea/ vomiting. Objective Vitals Vital Signs Date Time Temp Pulse Resp B/P (MAP) Pulse Ox O2 Delivery O2 Flow Rate FiO2 03/18/18 07:57 97.6 87 17 116/55 (75) 97 03/18/18 04:00 98.1 80 18 141/96 (111) 98 03/17/18 23:10 98.1 80 18 141/65 (90) 94 03/17/18 20:00 97.8 82 18 146/83 (104) 93 03/17/18 16:00 97.6 102 18 155/77 (103) 96 03/17/18 12:00 98.3 87 18 187/77 (113) 95 170/60 (96) I/O 03/17/18 03/17/18 03/17/18 03/18/18 03/18/18 03/18/18 07:00 15:00 23:00 07:00 15:00 23:00 Intake Total 600 ml 240 ml Balance 600 ml 240 ml Intake Oral 600 ml 240 ml # Voids 3 6 2 # Bowel Movements 2 3 1 Result Diagram: 03/17/18 1240 03/17/18 1240 Imaging Last Impressions Abdomen/Pelvis CT 03/16/18 1247 Signed Impressions: CONCLUSION: 1. Acute distal descending and sigmoid inflammatory change. Differential diagn ostic considerations include ischemic colitis as well as ulcerative colitis. No perforation, abscess, or obstruction. 2. Nonspecific 2.4 cm area of decreased density involving the central portion of the liver. This may simply relate to focal fatty infiltration. I cannot excl ude a mass. MRI could further differentiate. 3. 1.5 cm cystic lesion exophytic from the head of the pancreas projecting inf eriorly. This is poorly characterized on this style exam. At some point an MRI of the pancreas is suggested to further assess. 4. 2 mm nonobstructing right renal stone. Objective Remarks GENERAL: This is a well-nourished, well-developed patient, in no apparent distress. CARDIOVASCULAR: Regular rate and regular rhythm without murmurs, gallops, or rubs. RESPIRATORY: Clear to auscultation. Breath sounds equal bilaterally. No wheezes , rales, or rhonchi. GASTROINTESTINAL: Abdomen soft, non-tender, nondistended. Normal, active bowel sounds MUSCULOSKELETAL: Extremities without clubbing, cyanosis, or edema. NEURO: Alert & Oriented x4 to person, place, time, situation. Moves all ext x4 Medications and IVs Inpatient Medications Acetaminophen (Tylenol) 650 mg Q4H PRN PO TEMP > 100.4; Start 03/16/18 at 14:15 Duloxetine HCl (Cymbalta Dr) 60 mg DAILY PO Last administered on 03/18/18 08:16 ; Start 03/18/18 at 09:00 Enalaprilat (Vasotec Inj) 1.25 mg Q8H PRN IV PUSH SBP> OR = 180, DBP> OR = 100 ; Start 03/17/18 at 13:30 Fluconazole (Diflucan) 200 mg DAILY PO Last administered on 03/18/18at 08:16; Start 03/17/18 at 09:00 Latanoprost (Xalatan 0.005% Opth Soln) 1 drop HS EACH EYE Last administered on 03/17/18at 22:07; Start 03/17/18 at 21:00 Mesalamine (Pentasa Sr) 1,000 mg QID PO Last administered on 03/18/18 08:15; Start 03/16/18 at 18:00 Naloxone HCl (Narcan Inj) 0.4 mg UNSCH PRN IV PUSH SEE LABEL COMMENTS; Start at 14:15 Ondansetron HCl (Zofran Odt) 4 mg Q6H PRN SL nausea Last administered on at 22:30; Start 03/16/18 at 22:15 Pantoprazole Sodium (Protonix) 20 mg DAILY PO Last administered on 03/18/18at 08: 15; Start 03/17/18 at 18:00 Pantoprazole Sodium 80 mg/ Sodium Chloride 100 ml @ 10 mls/hr Q10H IV ; Start 03/16/18 at 23:00; Stop 03/17/18 at 17:02; Status DC Prednisone (Deltasone) 40 mg DAILY PO Last administered on 03/18/18 08:16; Start 03/17/18 at 09:00 Sodium Chloride (NS Flush) 2 ml BID IV FLUSH Last administered on 03/18/18at 08: 16; Start 03/16/18 at 21:00 Timolol Maleate (Timoptic 0.5% Opt Soln) 1 drop BID EACH EYE Last administered on 03/18/18at 08:14; Start 03/17/18 at 21:00 A/P Problem List: (1) Diarrhea ICD Code: R19.7 - Diarrhea, unspecified Status: Acute (2) Weakness ICD Code: R53.1 - Weakness Status: Acute (3) GI bleed ICD Code: K92.2 - Gastrointestinal hemorrhage, unspecified Status: Acute (4) CHF (congestive heart failure) ICD Code: I50.9 - Heart failure, unspecified (5) Glaucoma ICD Code: H40.9 - Unspecified glaucoma (6) Hyponatremia ICD Code: E87.1 - Hypo-osmolality and hyponatremia (7) Weight loss ICD Code: R63.4 - Abnormal weight loss Assessment and Plan A/P 1. Abdominal pain/diarrhea/GI bleed- likely due to inflammatory bowel disease Stool guaiac positive in the emergency department started on prednisone and Pentasa on Protonix colorectal surgery consult appreciated; sigmoidoscopy within the next couple of days vs outpatient. was evaluated by GI. 2. Weight loss Appetite decreased with close to 30 pounds weight loss in 2 months. Consulted dietitian. 3. Hyponatremia/dehydration Likely due to hypovolemic hyponatremia due to decreased p.o. intake. received IV fluid. Monitor BMP. 4. Congestive heart failure Seems to be stable. Hold Lasix given dehydration. 5. Perianal wounds Consulted wound care nurse. 6. Glaucoma Chronic. Seems to be stable. Continue latanoprost and timolol ophthalmic drops. 7. External hemorrhoid Patient has a large external hemorrhoid on exam. Consulted colorectal surgery. 8. History of cardiac arrest Patient has had a cardiac arrest while having a colonoscopy. Monitor on telemetry. EKG reviewed by me shows sinus rhythm with a ventricular rate of 87 bpm, QTC of 417, no ST-T changes suggestive of active ischemia. code status was d/w the daughter who would like to the patient about it. DVT prophylaxis: SCDs, no chemoprophylaxis given positive stool guaiac and reports of GI bleeding. consulted PT/OT. Discharge Planning possible within the next 48 hrs if stable/ cleared by colorectal surgery. dc planning to rehab/ possibly [facility]. Problem Qualifiers (1) Diarrhea: Qualified Codes: R19.7 - Diarrhea, unspecified (2) GI bleed: Qualified Codes: K92.2 - Gastrointestinal hemorrhage, unspecified Chidi Quiñonez MD Mar 18, 2018 10:49
[2018-03-18 13:22] LABS: BICARBONATE 28.1 MEQ/L (21.0-32.0); CALCIUM 8.6 MG/DL (8.5-10.1); CREATININE 0.87 MG/DL (0.50-1.00)
[2018-03-18] MEDS ORDERED: POTASSIUM CHLORIDE 10 MEQ CONTROLLED RELEASE TAB PO ONE (14:15)
--- NOTE | 2018-03-18 14:43 | HHI.PR ---
Subjective Remarks Says she feels much better after Prednisone. Pentasa started. No Pain,bleeding or diarrhea. Not taking Immodium yet Objective Vital Signs Date Time Temp Pulse Resp B/P (MAP) Pulse Ox O2 Delivery O2 Flow Rate FiO2 03/18/18 07:57 97.6 87 17 116/55 (75) 97 03/18/18 04:00 98.1 80 18 141/96 (111) 98 03/17/18 23:10 98.1 80 18 141/65 (90) 94 03/17/18 20:00 97.8 82 18 146/83 (104) 93 03/17/18 16:00 97.6 102 18 155/77 (103) 96 I/O 03/17/18 03/17/18 03/17/18 03/18/18 03/18/18 03/18/18 07:00 15:00 23:00 07:00 15:00 23:00 Intake Total 600 ml 240 ml Balance 600 ml 240 ml Intake Oral 600 ml 240 ml # Voids 3 6 2 # Bowel Movements 2 3 1 Result Diagram: 03/17/18 1240 03/18/18 1235 Objective Remarks VS-S Abd: obese,soft,nontender. I&Os and labs -OK Assessment and Plan Assessment and Plan Stable. 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
[2018-03-18 15:55] VITALS: BP 157/63; PULSE 74; RESP 18; TEMP 97.7; O2SAT 96
[2018-03-18 20:00] VITALS: BP 143/69; PULSE 77; RESP 16; TEMP 98; O2SAT 98
[2018-03-18] MEDS: LATANOPROST 0.005% OPHT SOLN 2.5 ML BTL EACH EYE SCH (20:13)
[2018-03-18 23:27] VITALS: BP 121/73; PULSE 68; RESP 17; TEMP 98.1; O2SAT 98
[2018-03-19] MEDS ORDERED: diphenhydrAMINE HCL 25 MG CAP PO ONE (02:00)
[2018-03-19 04:00] VITALS: BP 140/78; PULSE 72; RESP 17; TEMP 98; O2SAT 98
[2018-03-19 08:00] VITALS: BP 134/61; PULSE 71; RESP 18; TEMP 97.2; O2SAT 95
[2018-03-19] MEDS: predniSONE 20 MG TAB PO SCH (09:19)
[2018-03-19] MEDS: DULoxetine HCl DR 60 MG CAP PO SCH (09:20)
[2018-03-19] MEDS: PANTOPRAZOLE SOD 20 MG DELAYED RELEASE TAB PO SCH (09:20)
[2018-03-19] MEDS: MESALAMINE 250 MG CAP PO SCH ×4 (09:20→21:11)
[2018-03-19] MEDS: TIMOLOL MALEATE 0.5% OPHT SOLN 5 ML BTL EACH EYE SCH ×2 (09:21→21:15)
[2018-03-19] MEDS: FLUCONAZOLE 200 MG TAB PO SCH (09:21)
[2018-03-19] MEDS: SODIUM CHLORIDE 0.9% FLUSH 10 ML FLUSH IV FLUSH SCH ×2 (09:21→21:11)
[2018-03-19] MEDS ORDERED: POTASSIUM CHLORIDE 10 MEQ CONTROLLED RELEASE TAB PO ONE (09:45)
--- NOTE | 2018-03-19 11:42 | HHI.PR ---
Subjective Remarks C/O of so many pills. C/O gas and cramps. had diarrheal stool accident yesterday Objective Vital Signs Date Time Temp Pulse Resp B/P (MAP) Pulse Ox O2 Delivery O2 Flow Rate FiO2 03/19/18 08:00 97.2 71 18 134/61 (85) 95 03/19/18 04:00 98.0 72 17 140/78 (98) 98 03/18/18 23:27 98.1 68 17 121/73 (89) 98 03/18/18 20:00 98.0 77 16 143/69 (93) 98 03/18/18 15:55 97.7 74 18 157/63 (94) 96 I/O 03/18/18 03/18/18 03/18/18 03/19/18 03/19/18 03/19/18 07:00 15:00 23:00 07:00 15:00 23:00 Intake Total 240 ml 600 ml 240 ml Balance 240 ml 600 ml 240 ml Intake Oral 240 ml 600 ml 240 ml # Voids 2 3 4 # Bowel Movements 1 2 3 Result Diagram: 03/17/18 1240 03/19/18 0825 Objective Remarks VS-S Abd: obese,soft,nontender. I&Os and labs -OK Assessment and Plan Assessment and Plan Stable. 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 Allen Alfonso MD Mar 19, 2018 11:42
[2018-03-19 12:35] VITALS: BP 149/65; PULSE 83; RESP 18; TEMP 97.4; O2SAT 99
[2018-03-19] MEDS: SIMETHICONE 125 MG CHEWABLE TAB PO SCH ×2 (14:00→21:11)
--- NOTE | 2018-03-19 15:13 | HHI.PR ---
Subjective Remarks The patient is complaining of abdominal distention and some mucus coming out of rectum. RN states that the patient is having diarrhea. Patient denies fevers or chills Objective Vitals Vital Signs Date Time Temp Pulse Resp B/P (MAP) Pulse Ox O2 Delivery O2 Flow Rate FiO2 03/19/18 12:35 97.4 83 18 149/65 (93) 99 03/19/18 08:00 97.2 71 18 134/61 (85) 95 03/19/18 04:00 98.0 72 17 140/78 (98) 98 03/18/18 23:27 98.1 68 17 121/73 (89) 98 03/18/18 20:00 98.0 77 16 143/69 (93) 98 03/18/18 15:55 97.7 74 18 157/63 (94) 96 I/O 03/18/18 03/18/18 03/18/18 03/19/18 03/19/18 03/19/18 06:59 14:59 22:59 06:59 14:59 22:59 Intake Total 240 ml 600 ml 240 ml Balance 240 ml 600 ml 240 ml Intake Oral 240 ml 600 ml 240 ml # Voids 2 3 4 # Bowel Movements 1 2 3 Result Diagram: 03/17/18 1240 03/19/18 0825 Imaging Last Impressions Abdomen/Pelvis CT 03/16/18 1247 Signed Impressions: CONCLUSION: 1. Acute distal descending and sigmoid inflammatory change. Differential diagn ostic considerations include ischemic colitis as well as ulcerative colitis. No perforation, abscess, or obstruction. 2. Nonspecific 2.4 cm area of decreased density involving the central portion of the liver. This may simply relate to focal fatty infiltration. I cannot excl ude a mass. MRI could further differentiate. 3. 1.5 cm cystic lesion exophytic from the head of the pancreas projecting inf eriorly. This is poorly characterized on this style exam. At some point an MRI of the pancreas is suggested to further assess. 4. 2 mm nonobstructing right renal stone. Objective Remarks AAox3 - patient sitting in chair Clear lungs BL Abdomen is distended but soft, diffusely tender to palpation. A/P Problem List: (1) Diarrhea ICD Code: R19.7 - Diarrhea, unspecified Status: Acute (2) Weakness ICD Code: R53.1 - Weakness Status: Acute (3) GI bleed ICD Code: K92.2 - Gastrointestinal hemorrhage, unspecified Status: Acute (4) CHF (congestive heart failure) ICD Code: I50.9 - Heart failure, unspecified (5) Glaucoma ICD Code: H40.9 - Unspecified glaucoma (6) Hyponatremia ICD Code: E87.1 - Hypo-osmolality and hyponatremia (7) Weight loss ICD Code: R63.4 - Abnormal weight loss Assessment and Plan 1. Abdominal pain/diarrhea/GI bleed- likely due to inflammatory bowel disease Stool guaiac positive in the emergency department started on prednisone and Pentasa on Protonix colorectal surgery consult appreciated; sigmoidoscopy within the next couple of days vs outpatient. was evaluated by GI. 03/19 patient complaining of abdominal distention and pain. C. difficile toxin PCR was ordered on admission however it was canceled. Will check C. difficile toxin PCR and start the patient on simethicone for gas. 2. Weight loss Appetite decreased with close to 30 pounds weight loss in 2 months. Consulted dietitian. 3. Hyponatremia/dehydration Likely due to hypovolemic hyponatremia due to decreased p.o. intake. received IV fluid. Monitor BMP. 4. Congestive heart failure Seems to be stable. Hold Lasix given dehydration. 5. Perianal wounds Consulted wound care nurse. 6. Glaucoma Chronic. Seems to be stable. Continue latanoprost and timolol ophthalmic drops. 7. External hemorrhoid Patient has a large external hemorrhoid on exam. Consulted colorectal surgery. 8. History of cardiac arrest Patient has had a cardiac arrest while having a colonoscopy. Monitor on telemetry. EKG reviewed by me shows sinus rhythm with a ventricular rate of 87 bpm, QTC of 417, no ST-T changes suggestive of active ischemia. DVT prophylaxis: SCDs, given the presence of ulcerative colitis. Will place on Lovenox subcutaneously. consulted PT/OT. Discharge Planning Discharge in a.m. pending C. difficile test negative. Problem Qualifiers (1) Diarrhea: Qualified Codes: R19.7 - Diarrhea, unspecified (2) GI bleed: Qualified Codes: K92.2 - Gastrointestinal hemorrhage, unspecified Cholo Bustos MD Mar 19, 2018 15:13
[2018-03-19 16:00] VITALS: BP 171/67; PULSE 65; RESP 18; TEMP 97.2; O2SAT 95
[2018-03-19] MEDS: HYDROCORTISONE ACETATE 25 MG SUPP RECTAL SCH (18:11)
[2018-03-19 20:42] VITALS: BP 153/66; PULSE 82; RESP 20; TEMP 97.1; O2SAT 97
[2018-03-19] MEDS: LATANOPROST 0.005% OPHT SOLN 2.5 ML BTL EACH EYE SCH (21:15)
[2018-03-19 23:52] VITALS: BP 150/70; PULSE 96; RESP 18; TEMP 98.1; O2SAT 96
[2018-03-20 05:13] VITALS: BP 180/82; PULSE 69; RESP 18; TEMP 98.3; O2SAT 98
[2018-03-20] MEDS: SIMETHICONE 125 MG CHEWABLE TAB PO SCH ×3 (05:39→23:04)
[2018-03-20 05:48] VITALS: BP 156/78
[2018-03-20 07:45] VITALS: BP 153/81; PULSE 75; RESP 16; TEMP 97.6; O2SAT 96
[2018-03-20] MEDS: PANTOPRAZOLE SOD 20 MG DELAYED RELEASE TAB PO SCH (08:09)
[2018-03-20] MEDS: DULoxetine HCl DR 60 MG CAP PO SCH (08:09)
[2018-03-20] MEDS: FLUCONAZOLE 200 MG TAB PO SCH (08:09)
[2018-03-20] MEDS: predniSONE 20 MG TAB PO SCH (08:09)
[2018-03-20] MEDS: MESALAMINE 250 MG CAP PO SCH ×4 (08:10→23:04)
[2018-03-20] MEDS: TIMOLOL MALEATE 0.5% OPHT SOLN 5 ML BTL EACH EYE SCH ×2 (08:14→23:05)
[2018-03-20] MEDS: SODIUM CHLORIDE 0.9% FLUSH 10 ML FLUSH IV FLUSH SCH ×2 (08:15→23:04)
--- NOTE | 2018-03-20 09:30 | HHI.PR ---
Subjective Remarks Pt denies diarrhea but has few explosive BMs daily Objective Vital Signs Date Time Temp Pulse Resp B/P (MAP) Pulse Ox O2 Delivery O2 Flow Rate FiO2 03/20/18 07:45 97.6 75 16 153/81 (105) 96 03/20/18 05:48 156/78 (104) 03/20/18 05:13 98.3 69 18 180/82 (114) 98 03/19/18 23:52 98.1 96 18 150/70 (96) 96 03/19/18 20:42 97.1 82 20 153/66 (95) 97 03/19/18 16:00 97.2 65 18 171/67 (101) 95 03/19/18 12:35 97.4 83 18 149/65 (93) 99 I/O 03/19/18 03/19/18 03/19/18 03/20/18 03/20/18 03/20/18 07:00 15:00 23:00 07:00 15:00 23:00 Intake Total 240 ml 480 ml 200 ml Balance 240 ml 480 ml 200 ml Intake Oral 240 ml 480 ml 200 ml # Voids 4 3 2 # Bowel Movements 3 1 Result Diagram: 03/17/18 1240 03/19/18 0825 Objective Remarks VS-S Abd: obese,soft,nontender. Assessment and Plan Assessment and Plan Stable. 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 Diff negative May need intermediate NHP if family unable to care for her. D/W Helga and pt today. Will get Dr Torres to see today. May need Flex sig while here wiyh biopsy. Either Dr Torres or Allen Brunner MD Mar 20, 2018 09:30
[2018-03-20] MEDS: HYDROCORTISONE ACETATE 25 MG SUPP RECTAL SCH ×3 (09:38→18:44)
[2018-03-20 12:01] VITALS: BP 146/66; PULSE 82; RESP 17; TEMP 97.5; O2SAT 95
--- NOTE | 2018-03-20 14:17 | HHI.PR ---
Subjective Remarks Deferred entry, the patient was seen earlier at 10:15 AM. The patient denies diarrhea, fevers or chills. Abdominal distention and discomfort is much improved. Blood pressure is slightly elevated but acceptable. The patient denies nausea or vomiting. Objective Vitals Vital Signs Date Time Temp Pulse Resp B/P (MAP) Pulse Ox O2 Delivery O2 Flow Rate FiO2 03/20/18 12:01 97.5 82 17 146/66 (92) 95 03/20/18 07:45 97.6 75 16 153/81 (105) 96 03/20/18 05:48 156/78 (104) 03/20/18 05:13 98.3 69 18 180/82 (114) 98 03/19/18 23:52 98.1 96 18 150/70 (96) 96 03/19/18 20:42 97.1 82 20 153/66 (95) 97 03/19/18 16:00 97.2 65 18 171/67 (101) 95 I/O 03/19/18 03/19/18 03/19/18 03/20/18 03/20/18 03/20/18 07:00 15:00 23:00 07:00 15:00 23:00 Intake Total 240 ml 480 ml 200 ml Balance 240 ml 480 ml 200 ml Intake Oral 240 ml 480 ml 200 ml # Voids 4 3 2 # Bowel Movements 3 1 Result Diagram: 03/17/18 1240 03/19/18 0825 Imaging Last Impressions Abdomen/Pelvis CT 03/16/18 1247 Signed Impressions: CONCLUSION: 1. Acute distal descending and sigmoid inflammatory change. Differential diagn ostic considerations include ischemic colitis as well as ulcerative colitis. No perforation, abscess, or obstruction. 2. Nonspecific 2.4 cm area of decreased density involving the central portion of the liver. This may simply relate to focal fatty infiltration. I cannot excl ude a mass. MRI could further differentiate. 3. 1.5 cm cystic lesion exophytic from the head of the pancreas projecting inf eriorly. This is poorly characterized on this style exam. At some point an MRI of the pancreas is suggested to further assess. 4. 2 mm nonobstructing right renal stone. Objective Remarks AAox3 - patient sitting in chair Clear lungs BL Abdomen is distended but soft, diffusely tender to palpation. A/P Problem List: (1) Diarrhea ICD Code: R19.7 - Diarrhea, unspecified Status: Acute (2) Weakness ICD Code: R53.1 - Weakness Status: Acute (3) GI bleed ICD Code: K92.2 - Gastrointestinal hemorrhage, unspecified Status: Acute (4) CHF (congestive heart failure) ICD Code: I50.9 - Heart failure, unspecified (5) Glaucoma ICD Code: H40.9 - Unspecified glaucoma (6) Hyponatremia ICD Code: E87.1 - Hypo-osmolality and hyponatremia (7) Weight loss ICD Code: R63.4 - Abnormal weight loss Assessment and Plan 1. Abdominal pain/diarrhea/GI bleed- likely due to inflammatory bowel disease Stool guaiac positive in the emergency department started on prednisone and Pentasa on Protonix colorectal surgery consult appreciated; sigmoidoscopy within the next couple of days vs outpatient. was evaluated by GI. 03/19 patient complaining of abdominal distention and pain. C. difficile toxin PCR was ordered on admission however it was canceled. Will check C. difficile toxin PCR and start the patient on simethicone for gas. 03/20 GI consulted as per colorectal surgery recommendations. I will follow-up recommendations. CT abdomen and pelvis obtained on 03/16 showed acute distal descending and sigmoid inflammatory change. There is also described nonspecific 2.4 cm area of decreased density involving the central portion of the liver. Also described a 1.5 cm cystic lesion exophytic from the head of the pancreas projecting inferiorly. MRI of the abdomen will be obtained. 2. Weight loss Appetite decreased with close to 30 pounds weight loss in 2 months. Consulted dietitian. 3. Hyponatremia/dehydration Likely due to hypovolemic hyponatremia due to decreased p.o. intake. received IV fluid. Monitor BMP. 4. Congestive heart failure -unknown type. Seems to be stable. Hold Lasix given dehydration. 5. Perianal wounds Consulted wound care nurse. 6. Glaucoma Chronic. Seems to be stable. Continue latanoprost and timolol ophthalmic drops. 7. External hemorrhoid Patient has a large external hemorrhoid on exam. Consulted colorectal surgery. 8. History of cardiac arrest Patient has had a cardiac arrest while having a colonoscopy. Monitor on telemetry. EKG reviewed by me shows sinus rhythm with a ventricular rate of 87 bpm, QTC of 417, no ST-T changes suggestive of active ischemia. code status was d/w the daughter who would like to discuss with the patient about it. DVT prophylaxis: SCDs, given the presence of ulcerative colitis. Will place on Lovenox subcutaneously. consulted PT/OT. Discharge Planning GI consultation ordered by colorectal surgery. Pending MRI of the abdomen with and without contrast. Problem Qualifiers (1) Diarrhea: Qualified Codes: R19.7 - Diarrhea, unspecified (2) GI bleed: Qualified Codes: K92.2 - Gastrointestinal hemorrhage, unspecified Cholo Bustos MD Mar 20, 2018 14:17
[2018-03-20 16:18] VITALS: BP 138/68; PULSE 84; RESP 16; TEMP 97.9; O2SAT 96
--- NOTE | 2018-03-20 19:08 | MB ---
cc: Michael Diaz MD DATE: 03/20/2018 REASON FOR GASTROINTESTINAL CONSULTATION: Evaluation of possible inflammatory bowel disease, proctosigmoiditis with anal involvement, with deep anal fissures, ulcerations, rectal pain. HISTORY OF PRESENT ILLNESS: This is a pleasant 87-year-old female who I was asked to evaluate for a GI opinion regarding possible inflammatory bowel disease. I have reviewed the case with Dr. Alfonso and the family members at the bedside as well. History dates back at least a couple of years. She was in [place] and developed a GI bleed, presumed secondary to diverticular disease. At that time, colonoscopy was attempted, but the patient had a cardiac arrest during the procedure and was revived successfully. Most recently, she has been seen by Dr. Alfonso through his office, where she had a sigmoidoscopy exam. She had a short segment proctitis, consistent with inflammatory bowel disease, suspicion is this is probably more likely to be secondary to Crohn's disease, although we discussed the possibility of overlap between the 2 diseases. She was treated with Canasa suppositories, but she had developed more pain in the rectal area. She has seen her supervisor public health nursing, Dr. Flores, who noted the ulcerations in skin around the anus. She also noted holes in the posterior portion, possibly a fistulous opening communicating to the rectal vault. She has had diarrhea, loose stools and whenever she eats, she has urgency to have a bowel movement. She has been seen at [facility] as well. She has had CT imaging, which did reveal left-sided colitis on 2 scans, separate times. She also was briefly seen by ____. He Recommended Flagyl therapy and Canasa. She was also started on oral mesalamine therapy. There is a question whether she completed that therapy. Therefore, her lower GI symptoms and rectal/colonic symptoms have been going on for several months now. It was thought that she could have had an ischemic process, but usually this would go on to heal itself over time. This has been more of a protracted course. She has now been started on prednisone 40 mg [address] day [address] Dr[address] Alfonso and her mesalamine has been continued. The patient does have a history of non-Hodgkin's lymphoma in the past, currently in remission, but she has been treated with several courses of chemotherapeutic agents by ____. PAST MEDICAL HISTORY: Remarkable for diverticular disease, non-Hodgkin's lymphoma, breast cancer, congestive heart failure, lumpectomy, vaginal ulcers, cholecystectomy. MEDICATIONS PRIOR TO ADMISSION: Timolol eyedrops, furosemide, duloxetine. ALLERGIES: SULFA DRUGS. FAMILY HISTORY: There is no family history of Crohn's disease or inflammatory bowel disease or colorectal cancer. SOCIAL HISTORY: She does not smoke. She is a social drinker. She denies illicit drug use. REVIEW OF SYSTEMS: A 12-point review of systems is as stated in the HPI. According to the family, the patient has had weight loss as well of at least 20 pounds over the last few weeks. LABORATORY DATA: Her white count is normal, hemoglobin is 9.9, platelet count 328. Liver enzymes are in the normal range. Bilirubin is normal. Electrolytes show a potassium 3.3, sodium 134, glucose 140. IMAGING: CT studies do suggest severe atherosclerotic disease, but the SMA and inferior mesenteric artery appear patent, without high grade stenosis and the rest of the mesenteric vasculature was unremarkable. The patient does have distal descending, sigmoid inflammatory change. The patient does have focal fatty infiltration. A mass could not be excluded. MRI was suggested. In addition, she had a 1.5 cm cystic lesion at the head of the pancreas. MRI was also suggested to evaluate that area as well. CURRENT MEDICATIONS: Her current medications are reviewed as well and as stated above also. PHYSICAL EXAMINATION: GENERAL: Well-developed female, alert and oriented x 3, no acute distress. VITAL SIGNS: Stable. She is afebrile. Blood pressure is 150/70, pulse 90 and regular. SKIN: Warm and dry. HEENT: Normocephalic, atraumatic. Sclerae are anicteric. Oral mucosa is dry. NECK: Supple. CARDIAC: S1, S2. Regular rhythm. CHEST: Clear to A and P. ABDOMEN: Soft, minimal distention. Bowel sounds are present throughout all quadrants. No organomegaly or masses. EXTREMITIES: Reveal 2+ pitting edema bilaterally. NEUROLOGIC: The patient appears to be intact, without focal deficits. RECTAL: Was not repeated, but it is noted that in the chart, the patient has anorectal fissures with punctate opening, probably consistent with fistulous disease in association with her inflammatory bowel disease. IMPRESSION: 1. Distal colitis, sigmoiditis and proctitis. 2. Anal fissures. 3. Fistula disease involving the rectum. 4. Anal pain. 5. History of weight loss. 6. Pancreatic cyst noted on imaging study. 7. Fatty infiltration of the liver versus hepatic lesion noted on CT imaging as well. ASSESSMENT AND PLAN: At this point, I had a thorough discussion with the family, would continue with prednisone therapy 40 mg a day. She is due to go to rehab soon. I would also continue treatment of the anorectal problems with the addition of Rectiv 0.4% nitroglycerin ointment twice a day and lidocaine ointment as well for pain. I would continue using Sitz baths as well. Continue mesalamine therapy. We discussed briefly biologic therapy, which would be optimum to help improve and heal all of the lower GI problems mentioned above. However, the patient does have a history of non-Hodgkin's lymphoma. We need to discuss with her oncologist what impact that would have with biologic therapy, as there is some literature that reports lymphoproliferative disease with long-term use of biologic agents. This will need to be clarified further. In addition, we discussed holding off a sigmoidoscopy exam at this time, until we have further healing. Biopsies would be of some benefit also to help rule out other causes of flare of her disease including CMV, etc. Nutrition also needs to be optimized as she has had deterioration in her weight. Further discussion about further imaging studies could be discussed later on to evaluate the cystic pancreatic lesion and also the liver itself with MRI studies. Thank you kindly for this consult. We will be glad to follow her up as an outpatient as well. In closing, Flagyl therapy and VSL 3 may also be of benefit for this patient. MD OLI Mead/EMMANUEL/jose c , 05:24 PM , 06:14 PM
[2018-03-20 20:00] VITALS: BP 142/68; PULSE 77; RESP 18; TEMP 97.8; O2SAT 98
[2018-03-20] MEDS: LATANOPROST 0.005% OPHT SOLN 2.5 ML BTL EACH EYE SCH (23:05)
[2018-03-21] MEDS ORDERED: diphenhydrAMINE HCL 25 MG CAP PO ONE (00:30)
[2018-03-21 01:03] VITALS: BP 165/71; PULSE 66; RESP 18; TEMP 97.8; O2SAT 99
[2018-03-21 01:12] VITALS: BP 150/80
[2018-03-21 04:38] VITALS: BP 145/70; PULSE 61; RESP 18; TEMP 97.7; O2SAT 100
[2018-03-21 08:00] VITALS: BP 138/74; PULSE 69; RESP 20; TEMP 97.6; O2SAT 100
[2018-03-21] MEDS: MESALAMINE 250 MG CAP PO SCH (08:43)
[2018-03-21] MEDS: DULoxetine HCl DR 60 MG CAP PO SCH (08:45)
[2018-03-21] MEDS: SIMETHICONE 125 MG CHEWABLE TAB PO SCH (08:46)
[2018-03-21] MEDS: predniSONE 20 MG TAB PO SCH (08:48)
[2018-03-21] MEDS: FLUCONAZOLE 200 MG TAB PO SCH (08:48)
[2018-03-21] MEDS: PANTOPRAZOLE SOD 20 MG DELAYED RELEASE TAB PO SCH (08:48)
[2018-03-21] MEDS: TIMOLOL MALEATE 0.5% OPHT SOLN 5 ML BTL EACH EYE SCH (08:49)
[2018-03-21] MEDS: HYDROCORTISONE ACETATE 25 MG SUPP RECTAL SCH (08:49)
[2018-03-21] MEDS: SODIUM CHLORIDE 0.9% FLUSH 10 ML FLUSH IV FLUSH SCH (08:50)
[2018-03-21] MEDS ORDERED: SIME125 PO (09:46)
[2018-03-21] MEDS ORDERED: MESA250 PO (09:46)
[2018-03-21] MEDS ORDERED: ANUS25SU RECTAL (09:46)
[2018-03-21] MEDS ORDERED: PRED10PA2 PO (09:46)
[2018-03-21] MEDS ORDERED: DIFL200T PO (09:46)
[2018-03-21] MEDS ORDERED: ONDA4TAB7 SL (09:46)
--- NOTE | 2018-03-21 09:47 | HHI.DCPOC ---
Discharge Care Plan Diagnosis: (1) Ulcerative colitis, acute (2) Glaucoma (3) Weight loss (4) Hyponatremia (5) CHF (congestive heart failure) (6) GI bleed (7) Weakness (8) Diarrhea Goals to Promote Your Health * To prevent worsening of your condition and complications * To maintain your health at the optimal level Directions to Meet Your Goals Take your medications as prescribed Follow your dietary instruction Follow activity as directed Keep your appointments as scheduled Take your immunizations and boosters as scheduled If your symptoms worsen call your PCP, if no PCP go to Urgent Care Center or Emergency Room Smoking is Dangerous to Your Health. Avoid second hand smoke Call the 24-hour hour crisis hotline for domestic abuse at Cholo Bustos MD Mar 21, 2018 09:47
--- NOTE | 2018-03-21 09:58 | HHI.DS ---
Discharge Summary Admission Date Mar 17, 2018 at 11:46 Discharge Date: Mar 21, 2018 Admitting Diagnosis acute GI bleed, Diarrhea, loss of weight (1) Diarrhea ICD Code: R19.7 - Diarrhea, unspecified Status: Acute (2) Weakness ICD Code: R53.1 - Weakness Status: Acute (3) GI bleed ICD Code: K92.2 - Gastrointestinal hemorrhage, unspecified Status: Acute (4) CHF (congestive heart failure) ICD Code: I50.9 - Heart failure, unspecified (5) Glaucoma ICD Code: H40.9 - Unspecified glaucoma (6) Hyponatremia ICD Code: E87.1 - Hypo-osmolality and hyponatremia (7) Weight loss ICD Code: R63.4 - Abnormal weight loss Brief History - From Admission This is an 87-year-old female with extensive past medical history as stated below who presented to the emergency department complaining of abdominal cramping, diarrhea, hemorrhoids and ulcers to her buttocks as well as loss of 30 pounds in the past 2 months. The patient has significant history of colitis , diverticulitis and proctitis and follows up with different doctors for this. Apparently the patient was seen 3 weeks ago in the [facility] where she had a CT scan of the abdomen which showed colitis and was started on Flagyl as per the family report. The patient was doing fine until about 1 week ago when she was noted to be having diarrhea as well as abdominal cramping with decreased appetite. Family describes also foul-smelling stool with mucus. The patient currently complains of some nausea caused by the oral contrast that she is taking for the CT abdomen ordered by the emergency department physician and mild abdominal pain which is diffuse with distention. Patient family member states that this morning the patient had some stool mixed with bright red blood per rectum which she has been having. Family also describes the patient has been having chills and sweats. Per family and patient patient had chemo last year. The patient is not on blood thinners. CBC/BMP: 03/17/18 1240 03/19/18 0825 Significant Findings Laboratory Tests Test 03/18/18 12:35 03/19/18 08:25 Random Glucose 140 MG/DL (74-106) Sodium Level 134 MEQ/L (136-145) Potassium Level 3.3 MEQ/L (3.5-5.1) Chloride Level 95 MEQ/L (98-107) Estimat Glomerular Filtration Rate 61 ML/MIN (>89) PE at Discharge AAox3 - patient sitting in chair Clear lungs BL Abdomen is distended but soft, diffusely tender to palpation. Pt Condition on Discharge: Stable Discharge Disposition: Rehab Inpatient Discharge Time: > 30 minutes Discharge Instructions DIET: Follow Instructions for: As Tolerated, No Restrictions Activities you can perform: Regular-No Restrictions, See Additionl Instruction Other Activity Instructions: oob w assistance as per PT instructions Follow up Referrals: Colorectal Surgery - 1 Week with Allen Alfonso MD Gastroenterology - 2 Weeks with Michael Diaz MD PCP Follow-up - 2 Weeks New Medications: Prednisone (48) 10 mg tab Dose Pack (Prednisone (48) 10 mg tab Dose Pack) 10 Mg Dspk 10 MG PO DIRECTED for Inflammation, #1 DSPK 0 Refills Fluconazole (Diflucan) 200 Mg Tab 200 MG PO DAILY for Infection, #10 TAB Hydrocortisone Supp (Anusol-Hc Supp) 25 Mg Supp 25 MG RECTAL TID for Inflammation, #30 SUPP Mesalamine ER (Pentasa) 250 Mg Caper 1000 MG PO QID for Inflammation, #270 CAP Ondansetron Odt (Ondansetron Odt) 4 Mg Tab 4 MG SL Q6H PRN for nausea, #30 TAB Simethicone (Gas Relief Extra Strength) 125 Mg Chw 125 MG PO Q8HR for bloating, #30 EA Continued Medications: Duloxetine DR (Duloxetine DR) 60 Mg Capdr 60 MG PO DAILY, #30 CAP 0 Refills Furosemide (Furosemide) 20 Mg Tab 20 MG PO DAILY, #30 TAB 0 Refills Latanoprost Opth Drops (Latanoprost Opth Drops) 0.005% Drops 1 DROP EACH EYE HS for Glaucoma, #2.5 ML 0 Refills Refrigerate until opened. Timolol Opth Drops (Timolol Opth Drops) 0.5 % Soln 1 DROP EACH EYE BID for Glaucoma, #1 BOTTLE 0 Refills Cholo Bustos MD Mar 21, 2018 09:58
--- NOTE | 2018-03-21 10:32 | HHI.GIFU ---
Subjective Remarks alert NAd no bleeding at present HB 10.1 discussed case w daughters and her sonss as well pt seen by surgery for right hemicolectomy if cont bleeding occurs Objective Vitals I&O Vital Signs Date Time Temp Pulse Resp B/P (MAP) Pulse Ox O2 Delivery O2 Flow Rate FiO2 03/21/18 04:38 97.7 61 18 145/70 (95) 100 03/21/18 01:12 150/80 (103) 03/21/18 01:03 97.8 66 18 165/71 (102) 99 03/20/18 20:00 97.8 77 18 142/68 (92) 98 03/20/18 16:18 97.9 84 16 138/68 (91) 96 03/20/18 12:01 97.5 82 17 146/66 (92) 95 I/O 03/20/18 03/20/18 03/20/18 03/21/18 03/21/18 03/21/18 07:00 15:00 23:00 07:00 15:00 23:00 Intake Total 200 ml 200 ml Balance 200 ml 200 ml Intake Oral 200 ml 200 ml # Voids 2 1 2 1 # Bowel Movements 1 1 1 Laboratory Date/Time Source Procedure Growth Status 03/16/18 11:30 Blood Peripheral Aerobic Blood Culture - Preliminary NO GROWTH IN 4 DAYS Resulted 03/16/18 11:30 Blood Peripheral Anaerobic Blood Culture - Preliminary NO GROWTH IN 4 DAYS Resulted 03/16/18 12:20 Stool Stool - Final NO ENTERIC PATHOGENS DETECTED BY PCR... Complete Physical Exam CHEST: Chest is clear to auscultation and percussion. CARDIAC: Regular rate and rhythm with no murmur gallop or rubs. ABDOMEN: Soft, nondistended, nontender; no hepatosplenomegaly; bowel sounds are present in all four quadrants. EXTREMITIES: No clubbing, cyanosis, or edema. SKIN: Normal; no rash; no jaundice. AIRLINE MANAGER: No focal deficits; alert and oriented times three. Assessment and Plan Plan discussed case in detail and results of angiogram positive bleeding from hepatic flexure?tic source... if further bleeding surgery may be needed follow up h/h closely Dr olguin to f/u for GI Michael Diaz MD Mar 21, 2018 10:32
--- NOTE | 2018-03-21 10:55 | HHI.GIFU ---
Subjective Remarks alert NAD VSS no complaints at present Objective Vitals I&O Vital Signs Date Time Temp Pulse Resp B/P (MAP) Pulse Ox O2 Delivery O2 Flow Rate FiO2 03/21/18 04:38 97.7 61 18 145/70 (95) 100 03/21/18 01:12 150/80 (103) 03/21/18 01:03 97.8 66 18 165/71 (102) 99 03/20/18 20:00 97.8 77 18 142/68 (92) 98 03/20/18 16:18 97.9 84 16 138/68 (91) 96 03/20/18 12:01 97.5 82 17 146/66 (92) 95 I/O 03/20/18 03/20/18 03/20/18 03/21/18 03/21/18 03/21/18 07:00 15:00 23:00 07:00 15:00 23:00 Intake Total 200 ml 200 ml Balance 200 ml 200 ml Intake Oral 200 ml 200 ml # Voids 2 1 2 1 # Bowel Movements 1 1 1 Laboratory Date/Time Source Procedure Growth Status 03/16/18 11:30 Blood Peripheral Aerobic Blood Culture - Preliminary NO GROWTH IN 4 DAYS Resulted 03/16/18 11:30 Blood Peripheral Anaerobic Blood Culture - Preliminary NO GROWTH IN 4 DAYS Resulted 03/16/18 12:20 Stool Stool - Final NO ENTERIC PATHOGENS DETECTED BY PCR... Complete Imaging Laboratory Tests Test 03/16/18 11:30 03/17/18 12:40 03/18/18 12:35 03/19/18 08:25 Prothrombin Time 11.3 SEC Prothromb Time International Ratio 1.1 RATIO Activated Partial Thromboplast Time 26.4 SEC Lactic Acid Level 1.8 mmol/L Lipase 61 U/L White Blood Count 6.6 TH/MM3 Red Blood Count 3.44 MIL/MM3 Hemoglobin 9.9 GM/DL Hematocrit 30.2 % Mean Corpuscular Volume 87.9 FL Mean Corpuscular Hemoglobin 28.7 PG Mean Corpuscular Hemoglobin Concent 32.7 % Red Cell Distribution Width 15.5 % Platelet Count 328 TH/MM3 Mean Platelet Volume 7.8 FL Neutrophils (%) (Auto) 91.5 % Lymphocytes (%) (Auto) 4.4 % Monocytes (%) (Auto) 3.7 % Eosinophils (%) (Auto) 0.2 % Basophils (%) (Auto) 0.2 % Neutrophils # (Auto) 6.0 TH/MM3 Lymphocytes # (Auto) 0.3 TH/MM3 Monocytes # (Auto) 0.2 TH/MM3 Eosinophils # (Auto) 0.0 TH/MM3 Basophils # (Auto) 0.0 TH/MM3 CBC Comment DIFF FINAL Differential Comment Blood Urea Nitrogen 11 MG/DL 15 MG/DL Creatinine 0.61 MG/DL 0.87 MG/DL Random Glucose 105 MG/DL 140 MG/DL Total Protein 5.5 GM/DL Albumin 2.2 GM/DL Calcium Level 8.2 MG/DL 8.6 MG/DL Alkaline Phosphatase 96 U/L Aspartate Amino Transf (AST/SGOT) 12 U/L Alanine Aminotransferase (ALT/SGPT) 11 U/L Total Bilirubin 0.6 MG/DL Sodium Level 135 MEQ/L 134 MEQ/L Potassium Level 3.1 MEQ/L 3.3 MEQ/L 3.5 MEQ/L Chloride Level 95 MEQ/L 95 MEQ/L Carbon Dioxide Level 30.5 MEQ/L 28.1 MEQ/L Anion Gap 11 MEQ/L Estimat Glomerular Filtration Rate 61 ML/MIN Physical Exam CHEST: Chest is clear to auscultation and percussion. CARDIAC: Regular rate and rhythm with no murmur gallop or rubs. ABDOMEN: Soft, nondistended, nontender; no hepatosplenomegaly; bowel sounds are present in all four quadrants. EXTREMITIES: No clubbing, cyanosis, or edema. SKIN: Normal; no rash; no jaundice. Assessment and Plan Plan continue present therapy will follow uo after dc for rther recommendations and treatment??biologic therapy if ok w oncology Michael Diaz MD Mar 21, 2018 10:54
== END 2018-03-21 11:54 | DRG 386 ==
LOC: NEPE 10:31 → NEDA 12:05 → N05A 15:51 → OBSVTOIN 03-17 11:46
PROVIDERS: ADMIT Hospitalist; ATTEND Hospitalist
DX: K51.90 Ulcerative colitis, unspecified, without complications (principal); E87.1 Hypo-osmolality and hyponatremia; I11.0 Hypertensive heart disease with heart failure; I50.9 Heart failure, unspecified; Z86.74 Personal history of sudden cardiac arrest; K57.92 Diverticulitis of intestine, part unspecified, without perforation or abscess without bleeding; K62.5 Hemorrhage of anus and rectum; K51.50 Left sided colitis without complications; K52.9 Noninfective gastroenteritis and colitis, unspecified; K60.4 Rectal fistula; K60.2 Anal fissure, unspecified; E86.0 Dehydration; N20.0 Calculus of kidney; K64.4 Residual hemorrhoidal skin tags; R63.4 Abnormal weight loss; H40.9 Unspecified glaucoma; K62.89 Other specified diseases of anus and rectum; R53.1 Weakness; K21.9 Gastro-esophageal reflux disease without esophagitis; Z96.653 Presence of artificial knee joint, bilateral; F32.9 Major depressive disorder, single episode, unspecified; J44.9 Chronic obstructive pulmonary disease, unspecified; Z68.33 Body mass index [BMI] 33.0-33.9, adult; Z85.72 Personal history of non-Hodgkin lymphomas; Z85.3 Personal history of malignant neoplasm of breast; Z87.891 Personal history of nicotine dependence; Z92.21 Personal history of antineoplastic chemotherapy; Z90.49 Acquired absence of other specified parts of digestive tract; Z88.2 Allergy status to sulfonamides; Z86.19 Personal history of other infectious and parasitic diseases
CPT/HCPCS: 74177; 76937; 80048; 80053; 83605; 83690; 84132; 85025; 85610; 85730; 86850; 86900; 86901; 87040; 87506; 93005; C9113; J7030; J7040; J7512; Q9963; Q9967

== ENCOUNTER → 2018-03-29 | Outpatient (CLI) | payer MEDICARE, BC ==
[~2018-03-29] VITALS: Ht 152.4 cm; Wt 73.5 kg
[~2018-03-29] MED LIST changes: +ANUS25SU RECTAL; -BENZ1CAP34 PO; -BRIM.2%O OU; -CARV3.12 PO; +CHLORHEXIDINE GLUCONATE 2 % 1 PACK (2 CLOTHS) TOPICAL PRN; -CYMB60CA PO; -DICL1GEL; +DIFL200T PO; -DIOV40TA PO; +DULO1CAP3 PO; -EXCETAB2; -FURO1TAB93 PO; +FURO20TA PO; -GAS-80CH CHEW; +HOSP BED1; -HYDR10TA16 PO; -K-TA10TA5 PO; +LACTATED RINGER'S 1000 ML IV PRN; +LATA0.002 EACH EYE; +LIDOCAINE HCL 2% JELLY 5 ML SYRINGE TOPICAL ONE; +MESA250 PO; +METOPROLOL TARTRATE 25 MG TAB PO PRN; -MULTTAB4; +ONDA4TAB7 SL; -OSTETAB4; -PANT20 PO; +POVIDONE IODINE 5% (ANTISEPSIS KIT) 4 APPLICATIONS EACH NARE PRN; +PRED10PA2 PO; +SIME125 PO; +SODIUM CHLORID 0.9% 500 ML IV PRN; +TIMO0.5S30 EACH EYE; +VANC1000P IV; -VITA100020 IM; -VITA500C PO; +ZOSY3.375P IV
[2018-03-29 08:40] VITALS: BP 157/69; PULSE 69; RESP 18; TEMP 98; O2SAT 98
--- NOTE | 2018-03-29 08:53 | MR ---
cc: Allen Alfonso MD, Donato R MD DATE: 03/29/2018 PREOPERATIVE DIAGNOSIS: Left-sided colitis. POSTOPERATIVE DIAGNOSIS: Left-sided colitis. PROCEDURE PERFORMED: Flexible sigmoidoscopy to 30 cm with biopsy. COMPLICATIONS: None. SURGEON: Allen Alfonso MD OPERATIVE FINDINGS: This patient was admitted to the hospital 10-12 days ago with continued diarrhea that has been going off and on for months. She has 2 CT scans showing a left-sided colitis. She was placed on mesalamine and prednisone 40 mg a day and was seen by gastroenterology, specifically Dr. Michael Diaz, while she was in the hospital. She was transferred to rehabilitation and her diarrhea had gotten much better prior to transfer to rehab, where she was moving her bowels loosely 3-4 times a day, but she continues to have cramps and gas pains. Two abdominal x-rays were obtained in the last couple of days showing colon with a fair amount of fecal material, but no definite fecal impaction and there was no bowel dilatation, either small bowel or colon. For this reason, we decided to do a flexible sigmoidoscopy just to look at the colitis once again. OPERATIVE TECHNIQUE: The patient was placed on the table in the left lateral position, given no anesthesia and the buttocks were inspected. She has had several superficial ulcerations of the skin in the perianal region. She also has a posterior deep fissure in ano, which is causing her anal pain. She has swollen external hemorrhoids, but they are not thrombosed at this time. In fact, the swelling is down from my previous exam of her rectum. Digital rectal exam is gently done with some lidocaine ointment and then the flexible sigmoidoscope was placed in the anal canal and taken up through the rectum to the sigmoid colon. The lower rectum is scarred, consistent with some sort of colitis, probably Crohn disease. The sigmoid colon also has some mucosal edema with loss of vascularity, but there are no ulcerations, either linear ulcerations or discrete punctate ulcerations. She does have odorous mucous still from the rectum. There is no fecal impaction. Several biopsies were taken of the rectosigmoid region to see if we can delineate this colitis. This still appears to be idiopathic inflammatory bowel disease to me and not infectious colitis, certainly not ischemic colitis since the rectum is involved as well. The scope was eventually withdrawn. The patient tolerated the procedure well and left the GI lab in good condition. MD KEVIN Pruitt/YUNG , 08:37 AM , 08:52 AM
== END ==
LOC: HEND 07:14
PROVIDERS: ATTEND Colon & Rectal Surgery
DX: K51.50 Left sided colitis without complications (principal); K62.1 Rectal polyp; K64.4 Residual hemorrhoidal skin tags; K60.2 Anal fissure, unspecified; K62.89 Other specified diseases of anus and rectum
CPT/HCPCS: 88305; 88307

== ENCOUNTER 2018-03-31 09:13 | Inpatient (IN) | payer MEDICARE, BC ==
[~2018-03-31] VITALS: Ht 154.9 cm; Wt 80.2 kg
[2018-03-31] VITALS (8 sets, daily range): BP systolic 117–142; BP diastolic 62–63; PULSE 74–118; RESP 22–24; TEMP 97.7–98.5; O2SAT 91–96
[~2018-03-31 09:13] MED LIST changes: -CHLORHEXIDINE GLUCONATE 2 % 1 PACK (2 CLOTHS) TOPICAL PRN; -LACTATED RINGER'S 1000 ML IV PRN; -LIDOCAINE HCL 2% JELLY 5 ML SYRINGE TOPICAL ONE; -METOPROLOL TARTRATE 25 MG TAB PO PRN; -POVIDONE IODINE 5% (ANTISEPSIS KIT) 4 APPLICATIONS EACH NARE PRN; -SODIUM CHLORID 0.9% 500 ML IV PRN
[2018-03-31] MEDS ORDERED: RESP: ALBUTEROL 2.5 MG/IPRATROPIUM 0.5 MG NEB (PRN) INH (10:00)
[2018-03-31] MEDS ORDERED: NURSING INFORMATION XX SCH (10:00)
[2018-03-31] MEDS ORDERED: CHLORHEXIDINE GLUCONATE 2 % 1 PACK (2 CLOTHS) TOP PRN (10:00)
[2018-03-31] MEDS ORDERED: SODIUM CHLORIDE 0.9% FLUSH 10 ML FLUSH IV FLUSH PRN (10:00)
[2018-03-31] MEDS: SODIUM CHLOR 0.9% 1000 ML INJ 1,000 ML IV SCH ×2 (10:22→14:58)
[2018-03-31] MEDS ORDERED: ACETAMINOPHEN 1000 MG/100 ML 100 ML IV ONE (10:30)
[2018-03-31] MEDS ORDERED: SODIUM CHLOR 0.9% 1000 ML INJ 1,000 ML IV ONE ×3 (10:30→13:30)
[2018-03-31] MEDS: PIPERACIL-TAZO 4.5 GM PREMIX 100 ML IV SCH ×3 (10:37→21:51)
[2018-03-31] MEDS ORDERED: TERBUTALINE INJ 1 MG/ML AMP SQ PRN (11:45)
[2018-03-31] MEDS ORDERED: NOREPINEPHRINE-DEXTROSE DRIP 250 ML IV PRN ×2 (11:45→13:30)
[2018-03-31] MEDS: metroNIDAZOLE 500 MG INJ 100 ML IV SCH ×2 (11:54→18:00)
[2018-03-31 12:02] LABS: BACTERIA, URINE RARE /hpf; BILIRUBIN, URINE NEG (NEG); BLOOD, URINE NEG (NEG); GLUCOSE,URINE NEG (NEG); HYALINE CAST, URINE 1 /lpf (RARE); KETONE, URINE NEG (NEG); MUCUS URINE FEW /lpf (OCC); NITRITE,URINE NEG (NEG); SQUAMOUS EPITHELIAL CELL URINE <1 /hpf (0-5); URINE COLOR YELLOW (YELLW/STRAW); URINE LEUKOCYTE ESTERASE NEG (NEG)
[2018-03-31] MEDS ORDERED: HYDROCORTISONE SOD SUCCINATE 100 MG VIAL IV PUSH ONE (14:30)
[2018-03-31] MEDS: VASOPRESSIN INJ 40 UNITS in DEXTROSE 5% IN WATER 100ML INJ 98 ML IV SCH ×2 (14:31)
--- NOTE | 2018-03-31 15:01 | HHI.PR ---
Subjective Remarks Pt became septi this AM. No definite etiology.Awake,arousable. C/O pain everywhere. Objective Vital Signs Date Time Temp Pulse Resp B/P (MAP) Pulse Ox O2 Delivery O2 Flow Rate FiO2 03/31/18 14:31 95 107/52 03/31/18 14:00 98 03/31/18 12:00 98 03/31/18 12:00 97 03/31/18 10:55 118 75/39 03/31/18 10:00 100 Simple Mask 10.00 03/31/18 10:00 118 I/O 03/30/18 03/30/18 03/30/18 03/31/18 03/31/18 03/31/18 07:00 15:00 23:00 07:00 15:00 23:00 Intake Total 4300 ml Output Total 350 ml Balance 3950 ml Intake IV Total 4300 ml Output Urine Total 350 ml # Bowel Movements 1 Objective Remarks VS-S at present on pressors Abd: obese,soft,diffuse mild tenderness as previous. Assessment and Plan Assessment and Plan Sepsis. ? etiology. Reviewed all studies. Nothing surgical Recommend stress Steroids. D/W Dr Hill and Lizzy. Allen Alfonso MD Mar 31, 2018 15:01
[2018-03-31] MEDS: POTASSIUM CHLOR 20 MEQ PREMIX 100 ML IV SCH ×2 (15:18→16:45)
[2018-03-31] MEDS: HEPARIN SODIUM - SQ 10,000 UNITS/ML VIAL SQ SCH (15:19)
--- NOTE | 2018-03-31 15:53 | HHI.HP ---
HPI Service Critical Care Medicine Primary Care Physician Unknown Admission Diagnosis Diagnosis: Chief Complaint: Altered mental status, fever Travel History International Travel<30 Days: No Contact w/Intl Traveler <30 Da: No Traveled to Known Affected Are: No Sepsis Criteria SIRS Criteria (2 or more): Temp > 100.9 or < 96.8, Heart rate over 90, WBC > 71368, < 4000 or > 10% bands Sepsis Criteria (SIRS+source): Infect source susp/known Severe Sepsis (+one): Hypotension Septic Shock Criteria: Unresponsive to 30ml/kg fluid bolus Criteria Outcome: Meets septic shock criteria History of Present Illness HPI Ms. Reina is a 87-year-old dapsr-[id number] female with a past medical history pertinent for tonsillectomy, bilateral knee replacement, glaucoma, breast cancer with lumpectomy and radiation, gallbladder surgery, hernia surgery, COPD, CHF, non-Hodgkin's lymphoma with [address] 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 Patient's recent baseline is ambulating with a cane or walker and she is independent with all ADLs. Patient' s current clinical situation began back in October of this year when she began to have increasing weakness and respiratory infections. In January the patient had significant arm pain and was given steroid injections as an outpatient, patient developed thrush and at that time lesions around her anus and vaginal area performed. An outpatient tissue biopsy was done by her DIETETICS DIRECTOR and patient was put on antibiotics, although later discontinued antibiotics after the culture showed it was resistant to penicillin. The lesions continued to form on the vaginal and anal area, the patient also started developing significant mucus-like stools with bowel leakage. Weakness was increasing and weight loss developed, patient also had disorientation at times. On February 23 the patient was taken to [facility] ER and admitted with diagnosed with inflammatory colitis. Patient was discharged from [facility] February 25, 2018, with directions to follow-up with GI. On March 16, 2018 patient presented to [facility] emergency room with abdominal pain, diarrhea, weight loss, and lack of appetite. Patient is a positive guaiac stool in the emergency department was ordered a CT abdomen and pelvis which revealed acute distal descending and sigmoid inflammatory changes, as well as a 2.4 area of decreased density in the central portion of the liver, and a 1.5 cystic lesion on the head of the pancreas, patient was also started on any Protonix drip and GI was consulted. The patient's family previously declined workup of the pancreatic lesion. Patient underwent a flexible sigmoidoscopy on 03/[address] Alfonso and biopsy taken in the time revealed hyperplastic polyps. On morning of 03/30 patient developed altered mental status and subsequently spiked a fever of 102.1. Rapid response team was called and patient underwent chest x-ray, CT abdomen pelvis labs and was transferred to the ICU. Patient was evaluated by myself on arrival to the ICU. She was initially on a nonrebreather facemask when was drowsy though easily arousable knew she was in the hospital. She did appear slightly disoriented initially however this gradually improved. Following arrival to the ICU patient spiked temperature 103.1. She was given 1 g IV Ofirmev, stat blood cultures were ordered and initiated on empiric antibiotic coverage with IV Zosyn. A chest x-ray was essentially clear with no obvious infiltrates per my discussion with radiology. CT abdomen pelvis showed some thickening of the sigmoid colon consistent with a prior history of colitis. Patient had not had any diarrhea or rectal bleeding or melena on the floor on [facility] per my discussion with Dr. Lambert. Patient subsequently developed hypotension for which she received 2 L normal saline bolus and was started on Levophed for pressor support. Past Surgical/Medical History Past Surgery: Yes (L LUMPECTOMY) Major surgery in last 100 days: No Hx Anesthesia Reactions: No Hx Orthopedic Surgery: Yes (BILAT TOTAL KNEES) Hx Cardiac Surgery: No Hx Chest Surgery: No Hx Abdominal Surgery: Yes (gallblader removal, hernia repair) Hx Genitourinary Surgery: No Hx Gynecologic Surgery: No Hx Endocrine Surgery: No Hx Eye Surgery: Yes (CATARACT SURGERY) Hx Ear Surgery: No Hx Oral Surgery: No Hx of Neuro Prob: Yes Hx Seizures: No Cephalgia (Headaches): No Hx Migraines: No Hx Head Injury: No Hx Falls: Yes (2 weeks ago) Hx Cerebrovascular Accident: No Hx Dizziness: No Hx Numbness: No Hx of Musculoskeletal Pro: Yes (HERNIATED DISC LOWER BACK, osteoarthritis) Hx Arthritis: Yes Hx Osteoporosis: Yes Hx Neck Problems: No Hx Back Problem: Yes (sciatica) Hx of Cardiovascular Prob: Yes Hypertension (High Blood Press: Yes Hx Clotting Problems: No Hx Chest Pain: No Hx Lightheadedness: Yes Hx Congestive Heart Failure: Yes Syncope (Fainting): No Hx of Respiratory Problem: Yes Hx Asthma: No Hx Wheezing: No Hx Chronic Obstructive Pulmona: Yes Hx Dyspnea: Yes Hx Snoring: No Hx Emphysema: No Hx Sleep Apnea: No Hx of GI Problems: Yes (hemorrhoids) Hx Heartburn: Yes Hx Gastroesophageal Reflux: Yes Hx Hiatal Hernia: Yes Hx Ulcer: No Hx Liver Disease: No Hx Gallbladder Disease: Yes (gallblader removed) Hx Inflammatory Bowel Disease: Yes Hx of Problems: No Hx of Immuno Disor: No Hx Autoimmune Disease: No Hx of Endocrine Problems: No Hx Thyroid Disease: No Hx Diabetes: No Hx of Eye Probl: Yes Hx of Glaucoma: Bilateral Hx of Hearing or Ear Problems: No Hx Dental Problems: Yes (TEMPORARY BRIDGE) Hx Psychiatric Problems: Yes Hx Anxiety: Yes Hx Depression: Yes Hx Blood Dyscrasias: No Hx of MDRO: No Hx of MRSA: No Hx of VRE: No Hx of Tuberculosis: No Hx Chicken Pox: Yes (CHILDHOOD) Hx Measles: No Hx of Body/Medical Devices: Yes Hx Pacemaker: No Hx Internal Defibrillator: No Hx Joint Replacement: Yes (BILAT KNEE REPLACEMENT) Blood Transfusion History Hx Blood Transfusions: Yes Hx Blood Transfusion Reaction: No Allergies: Coded Allergies: Sulfa (Sulfonamide Antibiotics) (Unverified Allergy, Severe, Rash, 03/16/18) Active Medications Active Medications Acetaminophen (Tylenol) 650 mg Q4H PRN PO; Start 03/21/18 at 14:15; Status UNV Bisacodyl (Dulcolax Supp) 10 mg DAILY PRN RECTAL; Start 03/21/18 at 14:15; Status UNV Duloxetine HCl (Cymbalta Dr) 60 mg DAILY PO; Start 03/22/18 at 09:00; Status UNV Fluconazole (Diflucan) 200 mg DAILY PO; Start 03/22/18 at 09:00; Stop 04/01/18 at 08:59; Status UNV Furosemide (Lasix) 20 mg DAILY PO; Start 03/22/18 at 09:00; Status UNV Hydrocortisone Acetate (Hemorrhoidal Hc Supp) 25 mg TID RECTAL; Start 03/21/18 at 18:00; Status UNV Lactulose (Lactulose Liq) 30 ml DAILY PRN PO; Start 03/21/18 at 14:15; Status UNV Latanoprost (Xalatan 0.005% Opth Soln) 1 drop HS EACH EYE; Start 03/21/18 at 21: 00; Status UNV Magnesium Hydroxide (Milk Of Magnesia Liq) 30 ml Q12H PRN PO; Start 03/21/18 at 14:15; Status UNV Mesalamine (Pentasa Sr) 1,000 mg QID PO; Start 03/21/18 at 18:00; Status UNV Ondansetron HCl (Zofran Odt) 4 mg Q6H PRN SL; Start 03/21/18 at 14:15; Status UNV Pantoprazole Sodium (Protonix) 40 mg DAILY PO; Start 03/22/18 at 09:00; Status UNV Prednisone (Deltasone) 40 mg Taper DAILY PO; Start 03/22/18 at 09:00; Stop 05/06 at 08:59; Status UNV Senna/Docusate Sodium (Elana-Colace) 1 tab BID PO; Start 03/21/18 at 21:00; Status UNV Sennosides (Senokot) 17.2 mg Q12H PRN PO; Start 03/21/18 at 14:15; Status UNV Simethicone (Phazyme Chew) 125 mg QID PO; Start 03/21/18 at 18:00; Status UNV Timolol Maleate (Timoptic 0.5% Opth Soln) 1 drop BID EACH EYE; Start 03/21/18 at 21:00; Status UNV Family/Social History Family History Patient's mother of polycystic kidney disease in her 50s. Patient's father of possible stomach cancer in his 70s. Smoking Status: Former Smoker (Patient was a half a pack per day smoker who quit in 1997.) Alcohol Use: Weekly (Patient drinks 2-3 times a week although has not done so in a while due to not feeling well.) Hx Substance Use: No Employment Status: Retired Pre-Hospital Living Setting: Home (Patient lives with her daughter.) Review of Systems ROS Limitations: Clinical Condition Physical Exam Vital Signs Vital Signs Date Time Temp Pulse Resp B/P (MAP) Pulse Ox O2 Delivery O2 Flow Rate FiO2 03/31/18 14:31 95 107/52 03/31/18 14:00 98 03/31/18 12:00 98 03/31/18 12:00 97 03/31/18 10:55 118 75/39 03/31/18 10:00 100 Simple Mask 10.00 03/31/18 10:00 118 Physical Exam HEENT/Neuro: No pallor or icterus, tongue dry, IKE, drowsy, easily arousable, no she is at hospital, follow simple commands. nonfocal grossly, moving all 4 extremities Neck: No JVD Chest/pulmonary: CTA bilaterally Cardiovascular: S1-S2 regular no gallop or murmur GI/abdomen: Soft, nontender, bowel sounds present Extremities: Warm bilaterally, no edema Laboratory Laboratory Tests Test 03/31/18 11:20 Urine Color YELLOW Urine Turbidity CLEAR Urine pH 6.0 Urine Specific [place] 1.015 Urine Protein NEG Urine Glucose (UA) NEG Urine Ketones NEG Urine Occult Blood NEG Urine Nitrite NEG Urine Bilirubin NEG Urine Urobilinogen LESS THAN 2 Urine Leukocyte Esterase NEG Urine RBC 2 Urine WBC 1 Urine Squamous Epithelial Cells <1 Urine Bacteria RARE Urine Hyaline Casts 1 Urine Mucus FEW Microscopic Urinalysis Comment CATH-CULTURE IND Nasal Screen MRSA (PCR) MRSA NOT DETECTED Date/Time Source Procedure Growth Status 03/31/18 11:20 Blood Peripheral Aerobic Blood Culture Pending Received 03/31/18 11:20 Blood Peripheral Anaerobic Blood Culture Pending Received 03/31/18 11:20 Urine Clean Catch Urine Culture Pending Received Septic Shock Reassessment Septic shock perfusion: reassessment completed Caprini VTE Risk Assessment Caprini VTE Risk Assessment: Mod/High Risk (score >= 2) Caprini Risk Assessment Model Point Value = 1 Point Value = 2 Point Value = 3 Point Value = 5 Age 41-60 Minor surgery BMI > 25 kg/m2 Swollen legs Varicose veins or History of unexplained or recurrent spontaneous Oral contraceptives or hormone replacement Sepsis (< 1 month) Serious lung disease, including pneumonia (< 1 month) Abnormal pulmonary function Acute myocardial infarction Congestive heart failure (< 1 month) History of inflammatory bowel disease Medical patient at bed rest Age 61-74 Arthroscopic surgery Major open surgery (> 45 min) Laparoscopic surgery (> 45 min) Malignancy Confined to bed (> 72 hours) Immobilizing plaster cast Central venous access Age >= 75 History of VTE Family history of VTE Factor V Leiden Prothrombin [id number] Lupus anticoagulant Anticardiolipin antibodies Elevated serum homocysteine Heparin-induced thrombocytopenia Other congenital or acquired thrombophilia Stroke (< 1 month) Elective arthroplasty Hip, pelvis, or leg fracture Acute spinal cord injury (< 1 month) Prophylaxis Regimen Total Risk Factor Score Risk Level Prophylaxis Regimen 0-1 Low Early ambulation 2 Moderate Order ONE of the following: *Sequential Compression Device (SCD) *Heparin 5000 units SQ BID 3-4 Higher Order ONE of the following medications: *Heparin 5000 units SQ TID *Enoxaparin/Lovenox 40 mg SQ daily (WT < 150 kg, CrCl > 30 mL/min) *Enoxaparin/Lovenox 30 mg SQ daily (WT < 150 kg, CrCl > 10-29 mL/min) *Enoxaparin/Lovenox 30 mg SQ BID (WT < 150 kg, CrCl > 30 mL/min) AND/OR *Sequential Compression Device (SCD) 5 or more Highest Order ONE of the following medications: *Heparin 5000 units SQ TID (Preferred with Epidurals) *Enoxaparin/Lovenox 40 mg SQ daily (WT < 150 kg, CrCl > 30 mL/min) *Enoxaparin/Lovenox 30 mg SQ daily (WT < 150 kg, CrCl > 10-29 mL/min) *Enoxaparin/Lovenox 30 mg SQ BID (WT < 150 kg, CrCl > 30 mL/min) AND *Sequential Compression Device (SCD) Assessment and Plan Assessment and Plan 87-year-old female with: Encephalopathy Fever Suspected septic shock Leukemoid reaction Colitis Recent GI bleed History of COPD History of CHF Plan: Neuro: Avoid sedatives and narcotics, follow neuro status. Cardiovascular: Status post 3 L normal saline bolus. On Levophed and low-dose vasopressin for pressor support. Continue IV fluids. Hold all antihypertensives. Pulmonary: Supplemental O2, bronchodilators as needed. GI/liver: N.p.o. except meds for improvement of neurologic status. Renal/: IV hydration, strict intake output, monitor and replete electrolytes, follow BN creatinine. ID: Chest x-ray is clear, UA appears fine. Suspect septic shock related to colitis with translocation of bacteria. Blood cultures obtained. Empiric antibiotic coverage with IV Zosyn and Flagyl. Doubt C. difficile as patient has not had any diarrhea. Endocrine: As patient has been on chronic steroids will initiate stress dose steroids with hydrocortisone 100 mg IV every 8 hourly. Watch for hyperglycemia , SSI for glycemic control if needed. Heme: Follow CBC Prophylaxis: Pepcid/SCDs/subcu heparin Condition critical Updated family at bedside. Informed him regarding critical condition including septic shock requiring pressors and possible need for intubation if clinical condition worsens. They voiced understanding. I also encouraged him to decide regarding CODE STATUS and aggressiveness of therapy desired considering patient' s advanced age and comorbidities. Prognosis appears guarded. Discussed with Dr. Ball and Dr. Alfonso. Time spent on critical care excluding procedures 70 minutes Elroy Hill MD Mar 31, 2018 15:52
[2018-03-31] MEDS ORDERED: ACETAMINOPHEN 325 MG TAB PO PRN (16:00)
[2018-03-31] MEDS: ALBUMIN 25% INJ 50 ML IV SCH (16:01)
--- NOTE | 2018-03-31 16:23 | MB ---
cc: Jose Ball MD, John T MD DATE: 03/31/2018 HISTORY OF PRESENT ILLNESS: The patient is an 87-year-old white female I was asked to see for further evaluation of sepsis. She has been in and out of the hospital and rehab at [facility] for the past several weeks. She has been seeing Dr. Alfonso and has seen Dr. Diaz here in the hospital. According to Dr. Alfonso, the patient has a long history of abdominal discomfort and symptoms and bowel irregularities and anorectal discomfort and fissures and hemorrhoids. Recent sigmoidoscopy was performed because of some thickening of the sigmoid colon. Mucosa visually looked inflamed. The biopsies only showed hyperplastic tissue. The patient had been on prednisone to treat suspected inflammatory bowel disease I presume. This was tapered from 40 mg per day to 30 mg per day, but overnight she developed hypotension, fever and leukocytosis and was transferred back to the intensive care unit. She was given a bolus of IV steroids and feels a bit better. She is still receiving pressors and multiple antibiotics. On questioning her and the nurse and her aide, there has been no new symptomatology of any sort. The chronic abdominal discomfort is no different. The anorectal discomfort is no different. The gelatinous stool is no different. There has been no headache. She has had no rashes, no sinus pain, no dental pains, no joint pains, no respiratory complaints, no urinary symptoms, no auditory problems, no jaundice. PAST MEDICAL HISTORY: Significant for diverticular disease, non-Hodgkin lymphoma, breast cancer, congestive heart failure, lumpectomy, vaginal and perianal ulcers, prior cholecystectomy. ALLERGIES: SULFA DRUGS. FAMILY HISTORY: No family history of IBD or colorectal neoplasia. Her last attempted colonoscopy in the past in [place] triggered a true cardiac arrest, so she refuses ever to undergo colonoscopy again, but as mentioned, a recent sigmoidoscopy had revealed again erythematous mucosa with no colitis histologically. REVIEW OF SYSTEMS: As above. CURRENT MEDICATIONS HERE IN THE HOSPITAL: 1. Hydrocortisone 100 mg IV push. 2. Famotidine 10 mg IV q.12 hours. 3. Subcutaneous heparin. 4. Norepinephrine. 5. Vasopressin. 6. Brethine. 7. Metronidazole. 8. Piperacillin-tazobactam. PHYSICAL EXAMINATION: VITAL SIGNS: Her weight is 87.1 kg, temperature 98, pulse 95; blood pressure 107/52, though it was 75/39 earlier this morning; saturation 100%. GENERAL: She is somewhat somnolent, but awakens and answers questions appropriately. She has a mild sense of humor. HEENT: She is anicteric. Extraocular motions are intact. I appreciate no tenderness over the maxillary or facial or mastoid sinuses. There is no pain or effusion in any of her joints. LYMPHATICS: I appreciate no submandibular, cervical, supraclavicular, axillary or epitrochlear adenopathy. CARDIAC: Regular rate and rhythm with no gross murmur or gallop. ABDOMEN: Good bowel sounds with no appreciable bruit. The abdomen is soft. There is mild nonfocal tenderness, mostly in the left lower quadrant, but she said this is no different than her baseline. LUNGS: Clear to auscultation. RECTAL: There is perianal erythema, apparent fissures with tenderness of the anal area. Stool is a very silva thick viscous material. EXTREMITIES: There is evidence of ischemic changes to her toes and feet. LABORATORY STUDIES: Urinalysis unremarkable. White count today is 40.5, hemoglobin 10.7, platelets 316. Differential: 80% neutrophils, 15% banded neutrophils. BUN 18, creatinine 0.96, sodium 135, potassium 3.2, lactic acid 2, bilirubin 0.5, AST 14, ALT 21, alkaline phosphatase 109. Troponin 0.04. Albumin 2.3. IMAGING STUDIES: I reviewed today's radiologic studies with the radiologist. Plain film of the abdomen reveals moderate stool in the colon, but less prominent than the prior exam. CT abdomen and pelvis reveals mildly thickened sigmoid colon, scattered diverticulosis noted. No other abnormalities evident to account for the leukocytosis. IMPRESSION AND PLAN: Sepsis with leukocytosis of unclear etiology. At this point, there is no gastrointestinal etiology identifiable. We will await the results of the blood cultures. I will follow along, but no endoscopic evaluations are necessary at this time. MD ZULLY Mast/YUNG , 03:22 PM , 04:22 PM
[2018-03-31 16:38] LABS: AUTOMATED NEUTROPHIL # 42.4 TH/MM3 (1.8-7.7); HEMATOCRIT 27.4 % (35.0-46.0); HEMOGLOBIN 8.8 GM/DL (11.6-15.3); INTERNATIONAL NORMALIZED RATIO 1.2 RATIO; LYMPH % 0.8 % (9.0-44.0); LYMPHOCYTE # 0.4 TH/MM3 (1.0-4.8); MEAN CELL VOLUME 88.5 FL (80.0-100.0); MEAN CORPUSCULAR HEMOGLOBIN 28.3 PG (27.0-34.0); MEAN PLATELET VOLUME 7.3 FL (7.0-11.0); MONO % 2.2 % (0.0-8.0); PLATELET COUNT 277 TH/MM3 (150-450); PROTHROMBIN TIME - PATIENT 12.6 SEC (9.8-11.6); RED CELL DISTRIBUTION WIDTH 16.6 % (11.6-17.2); WHITE BLOOD COUNT 43.8 TH/MM3 (4.0-11.0)
[2018-03-31 17:36] LABS: BANDS 17 % (0-6); METAMYELOCYTES 2 % (0-1); NEUTROPHIL # MANUAL DIFF 43.8 TH/MM3 (1.8-7.7); POLYS (SEG NEUTROPHILS) 81 % (16-70)
[2018-03-31 17:39] LABS: ALBUMIN 1.9 GM/DL (3.4-5.0); BICARBONATE 27.5 MEQ/L (21.0-32.0); CALCIUM 6.8 MG/DL (8.5-10.1); CALCIUM-PROTEIN CORRECTED 8.1 MG/DL (8.5-10.1); CREATININE 0.96 MG/DL (0.50-1.00); TOTAL BILIRUBIN ADULT 0.6 MG/DL (0.2-1.0); TOTAL PROTEIN 4.7 GM/DL (6.4-8.2); TROPONIN I 0.07 NG/ML (0.02-0.05)
[2018-03-31] MEDS ORDERED: FAMOTIDINE 20 MG TAB PO SCH (21:00)
[2018-03-31] MEDS: FAMOTIDINE 20 MG/2 ML VIAL IV PUSH SCH (21:50)
[2018-03-31] MEDS: HYDROCORTISONE SOD SUCCINATE 100 MG VIAL IV PUSH SCH (21:50)
[2018-03-31] MEDS: SODIUM CHLORIDE 0.9% FLUSH 10 ML FLUSH IV FLUSH SCH (21:50)
[2018-03-31] MEDS: HYDROmorphone HCL PF 2 MG/ML VIAL IV PUSH PRN (22:50)
[2018-04-01] VITALS (18 sets, daily range): BP systolic 136–165; BP diastolic 60–74; PULSE 62–84; RESP 16–26; TEMP 97.6–98.2; O2SAT 96–100
[2018-04-01] MEDS: HEPARIN SODIUM - SQ 10,000 UNITS/ML VIAL SQ SCH ×2 (03:11→15:28)
[2018-04-01] MEDS: metroNIDAZOLE 500 MG INJ 100 ML IV SCH ×3 (03:11→18:04)
[2018-04-01] MEDS: CHLORHEXIDINE GLUCONATE 2 % 1 PACK (2 CLOTHS) TOP SCH (03:11)
[2018-04-01] MEDS: PIPERACIL-TAZO 4.5 GM PREMIX 100 ML IV SCH ×4 (04:17→21:53)
[2018-04-01] MEDS: ALBUMIN 25% INJ 50 ML IV SCH (04:18)
[2018-04-01] MEDS: HYDROCORTISONE SOD SUCCINATE 100 MG VIAL IV PUSH SCH ×3 (05:57→21:58)
[2018-04-01] MEDS: VASOPRESSIN INJ 40 UNITS in DEXTROSE 5% IN WATER 100ML INJ 98 ML IV SCH ×2 (06:04)
[2018-04-01 06:08] LABS: AUTOMATED NEUTROPHIL # 19.7 TH/MM3 (1.8-7.7); BASOPHIL % 0.1 % (0.0-2.0); HEMOGLOBIN 7.1 GM/DL (11.6-15.3); LYMPHOCYTE # 0.4 TH/MM3 (1.0-4.8); MEAN CELL VOLUME 87.8 FL (80.0-100.0); MEAN CORPUSCULAR HEMOGLOBIN 28.2 PG (27.0-34.0); MEAN CORPUSCULAR HGB CONC 32.1 % (32.0-36.0); MEAN PLATELET VOLUME 6.9 FL (7.0-11.0); MONO % 1.8 % (0.0-8.0); MONOCYTE # 0.4 TH/MM3 (0-0.9); NEUT % 96.1 % (16.0-70.0); PLATELET COUNT 195 TH/MM3 (150-450); RED CELL DISTRIBUTION WIDTH 16.6 % (11.6-17.2); WHITE BLOOD COUNT 20.5 TH/MM3 (4.0-11.0)
[2018-04-01] MEDS ORDERED: FUROSEMIDE 20 MG/2 ML VIAL IV PUSH ONE (08:00)
[2018-04-01] MEDS ORDERED: SODIUM CHLOR 0.9% 250 ML INJ 250 ML IV ONE (08:00)
--- NOTE | 2018-04-01 08:36 | RADRPT ---
EXAM DATE: 04/01/2018 8:29 AM EDT AGE/SEX: 87 years / Female INDICATIONS: Evaluate fluid in the lung. Shortness of breath. CLINICAL DATA: This is the patient's subsequent encounter. Patient reports that signs and symptoms h ave been present for 2 days and indicates a pain score of 0/10. MEDICAL/SURGICAL HISTORY: Chronic obstructive pulmonary disease. Congestive heart failure. Hy percholesterolemia. Diverticulitis. None. COMPARISON: CHEST SINGLE AP, 03/31/2018. . FINDINGS: A single AP view of the chest demonstrates cardiomegaly. Bibasilar subsegmental atelectasis. Right castillo bclavian central line stable position. The cardiomediastinal contours are unremarkable. Surgical clip s left axilla. Osseous structures are intact. CONCLUSION: Bibasilar subsegmental atelectasis. Electronically signed by: Parish Villarreal MD 04/01/2018 8:35 AM EDT
[2018-04-01] MEDS: SODIUM CHLORIDE 0.9% FLUSH 10 ML FLUSH IV FLUSH SCH ×2 (09:39→21:00)
[2018-04-01] MEDS: FAMOTIDINE 20 MG/2 ML VIAL IV PUSH SCH ×2 (09:39→21:59)
[2018-04-01] MEDS: SODIUM CHLOR 0.9% 1000 ML INJ 1,000 ML IV SCH (09:41)
[2018-04-01 10:25] LABS: INTERNATIONAL NORMALIZED RATIO 1.4 RATIO; PROTHROMBIN TIME - PATIENT 14.1 SEC (9.8-11.6)
[2018-04-01 10:36] LABS: ALBUMIN 2.4 GM/DL (3.4-5.0); ALT (GPT) 15 U/L (10-53); AST (GOT) 10 U/L (15-37); BICARBONATE 27.6 MEQ/L (21.0-32.0); BLOOD UREA NITROGEN 21 MG/DL (7-18); CALCIUM 7.5 MG/DL (8.5-10.1); CHLORIDE 104 MEQ/L (98-107); GLOMERULAR FILTRATION RATE 68 ML/MIN (>89); GLUCOSE,RANDOM 131 MG/DL (74-106); SODIUM (NA) 141 MEQ/L (136-145)
[2018-04-01 10:39] LABS: ALKALINE PHOSPHATASE 85 U/L (45-117); TOTAL BILIRUBIN ADULT 0.4 MG/DL (0.2-1.0)
--- NOTE | 2018-04-01 11:28 | HHI.CCPN ---
Subjective Remarks/Hospital Course 03/31: Ms. Reina is a 87-year-old giedl-nzly-rowuhezz female with a past medical history pertinent for tonsillectomy, bilateral knee replacement, glaucoma, breast cancer with lumpectomy and radiation, gallbladder surgery, hernia surgery, COPD, CHF, non-Hodgkin's lymphoma with [address] 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 Patient's recent baseline is ambulating with a cane or walker and she is independent with all ADLs. Patient' s current clinical situation began back in October of this year when she began to have increasing weakness and respiratory infections. In January the patient had significant arm pain and was given steroid injections as an outpatient, patient developed thrush and at that time lesions around her anus and vaginal area performed. An outpatient tissue biopsy was done by her EPIC ANALYST and patient was put on antibiotics, although later discontinued antibiotics after the culture showed it was resistant to penicillin. The lesions continued to form on the vaginal and anal area, the patient also started developing significant mucus-like stools with bowel leakage. Weakness was increasing and weight loss developed, patient also had disorientation at times. On February 23 the patient was taken to [facility] ER and admitted with diagnosed with inflammatory colitis. Patient was discharged from [facility] February 25, 2018, with directions to follow-up with GI. On March 16, 2018 patient presented to [place] emergency room with abdominal pain, diarrhea, weight loss, and lack of appetite. Patient is a positive guaiac stool in the emergency department was ordered a CT abdomen and pelvis which revealed acute distal descending and sigmoid inflammatory changes, as well as a 2.4 area of decreased density in the central portion of the liver, and a 1.5 cystic lesion on the head of the pancreas, patient was also started on any Protonix drip and GI was consulted. The patient's family previously declined workup of the pancreatic lesion. Patient underwent a flexible sigmoidoscopy on 03/[address] Alfonso and biopsy taken in the time revealed hyperplastic polyps. On morning of 03/31 patient developed altered mental status and subsequently spiked a fever of 102.1. Rapid response team was called and patient underwent chest x-ray, CT abdomen pelvis labs and was transferred to the ICU. Patient was evaluated by myself on arrival to the ICU. She was initially on a nonrebreather facemask when was drowsy though easily arousable knew she was in the hospital. She did appear slightly disoriented initially however this gradually improved. Following arrival to the ICU patient spiked temperature 103.1. She was given 1 g IV Ofirmev, stat blood cultures were ordered and initiated on empiric antibiotic coverage with IV Zosyn. A chest x-ray was essentially clear with no obvious infiltrates per my discussion with radiology. CT abdomen pelvis showed some thickening of the sigmoid colon consistent with a prior history of colitis. Patient had not had any diarrhea or rectal bleeding or [facility] my discussion with Dr. Lambert. Patient subsequently developed hypotension for which she received 2 L normal saline bolus and was started on Levophed for pressor support. 04/01: Much more awake and alert today. Minimal shortness of breath on laying flat. Complains of minimal left lower quadrant abdominal pain. Denies any chest pain nausea or vomiting. Drop in hemoglobin noted. No melena or rectal bleeding per brake adjuster RN. Off levo fed and vasopressin being titrated off. Good urine output Objective Vital Signs Date Time Temp Pulse Resp B/P (MAP) Pulse Ox O2 Delivery O2 Flow Rate FiO2 04/01/18 07:00 97 Nasal Cannula 4.00 04/01/18 06:00 71 04/01/18 04:00 97.9 16 142/63 (89) Intake and Output 04/01/18 04/01/18 04/02/18 08:00 16:00 00:00 Intake Total 200 ml Output Total 375 ml Balance -175 ml Result Diagram: 04/01/18 0550 04/01/18 0955 Objective Remarks HEENT/Neuro: Pallor present. No icterus, tongue dry, IKE, awake alert oriented x3, no she is at hospital, follow simple commands. nonfocal grossly, moving all 4 extremities Neck: No JVD Chest/pulmonary: CTA bilaterally Cardiovascular: S1-S2 regular no gallop or murmur GI/abdomen: Soft, left lower quadrant tenderness, no guarding, bowel sounds present Extremities: Warm bilaterally, trace edema A/P Assessment and Plan 87-year-old female with: Encephalopathy Fever Suspected septic shock Leukemoid reaction Colitis Recent GI bleed History of COPD History of CHF Plan: Neuro: Avoid sedatives and narcotics, follow neuro status. Cardiovascular: Status post 3 L normal saline bolus. Titrated off Levophed. Vasopressin being titrated off. Continue IV fluids. Hold all antihypertensives. Pulmonary: Supplemental O2, bronchodilators as needed. GI/liver: Clear liquids and advance diet as tolerated. Renal/: IV hydration, strict intake output, monitor and replete electrolytes, follow BUN creatinine. ID: Chest x-ray is clear, UA appears fine. Suspect septic shock related to colitis with translocation of bacteria. Blood cultures obtained. Empiric antibiotic coverage with IV Zosyn and Flagyl. Will check stool for C. difficile as patient had some diarrhea overnight. Endocrine: As patient has been on chronic steroids will initiate stress dose steroids with hydrocortisone 100 mg IV every 8 hourly. Watch for hyperglycemia , SSI for glycemic control if needed. Heme: Follow CBC. 1 unit PRBC to be transfused. Lasix 20 mg IV following transfusion. Prophylaxis: Pepcid/SCDs/subcu heparin Updated family at bedside. Elroy Hill MD Apr 01, 2018 11:28
[2018-04-01] MEDS: ACETAMINOPHEN 325 MG TAB PO PRN ×2 (12:14→21:59)
[2018-04-01] MEDS: HYDROmorphone HCL PF 2 MG/ML VIAL IV PUSH PRN (15:29)
--- NOTE | 2018-04-01 15:58 | OTSOAPIP ---
TIME SESSION COMPLETED: 13:00 TREATMENT TIME: 0 MINS. CHART REVIEWED. ATTEMPTED TO SEE FOR OT ASSESSMENT, HOWEVER RECEIVING BLOOD TRANSFUSION. PATIENT SOUNDLY SLEEPING AND DAUGHTER REQUESTED TO COME BACK NEXT DAY. WILL FOLLOW. Therapist: TIA BRUCE OT/L Signature on file
[2018-04-01] MEDS ORDERED: POTASSIUM CHLORIDE 20 MEQ CONTROLLED RELEASE TAB PO ONE (16:45)
[2018-04-01] MEDS ORDERED: POTASSIUM CHLORIDE 25 MEQ EFFERVESCENT TAB PO ONE (17:00)
[2018-04-01 17:17] LABS: HEMATOCRIT 25.5 % (35.0-46.0); HEMOGLOBIN 8.4 GM/DL (11.6-15.3)
[2018-04-02] VITALS (14 sets, daily range): BP systolic 143–183; BP diastolic 65–81; PULSE 65–85; RESP 14–26; TEMP 97.4–98.1; O2SAT 96–100
[2018-04-02] MEDS: SODIUM CHLOR 0.9% 1000 ML INJ 1,000 ML IV SCH (03:00)
[2018-04-02] MEDS: metroNIDAZOLE 500 MG INJ 100 ML IV SCH (03:57)
[2018-04-02] MEDS: CHLORHEXIDINE GLUCONATE 2 % 1 PACK (2 CLOTHS) TOP SCH (04:00)
[2018-04-02] MEDS: PIPERACIL-TAZO 4.5 GM PREMIX 100 ML IV SCH ×2 (05:29→08:53)
[2018-04-02] MEDS: HEPARIN SODIUM - SQ 10,000 UNITS/ML VIAL SQ SCH ×2 (05:29→17:26)
[2018-04-02 05:35] LABS: AUTOMATED NEUTROPHIL # 14.9 TH/MM3 (1.8-7.7); BASOPHIL % 0.1 % (0.0-2.0); EOSINOPHIL % 0.1 % (0.0-4.0); HEMATOCRIT 25.4 % (35.0-46.0); HEMOGLOBIN 8.3 GM/DL (11.6-15.3); LYMPH % 2.3 % (9.0-44.0); LYMPHOCYTE # 0.4 TH/MM3 (1.0-4.8); MEAN CELL VOLUME 88.4 FL (80.0-100.0); MEAN CORPUSCULAR HGB CONC 32.8 % (32.0-36.0); MEAN PLATELET VOLUME 7.6 FL (7.0-11.0); MONO % 1.7 % (0.0-8.0); MONOCYTE # 0.3 TH/MM3 (0-0.9); NEUT % 95.8 % (16.0-70.0); PLATELET COUNT 182 TH/MM3 (150-450); RED BLOOD COUNT 2.87 MIL/MM3 (4.00-5.30); RED CELL DISTRIBUTION WIDTH 16.3 % (11.6-17.2); WHITE BLOOD COUNT 15.5 TH/MM3 (4.0-11.0)
[2018-04-02 05:57] LABS: ALBUMIN 2.3 GM/DL (3.4-5.0); ALT (GPT) 17 U/L (10-53); AST (GOT) 9 U/L (15-37); BICARBONATE 27.3 MEQ/L (21.0-32.0); BLOOD UREA NITROGEN 23 MG/DL (7-18); CALCIUM 7.8 MG/DL (8.5-10.1); CHLORIDE 103 MEQ/L (98-107); CREATININE 0.86 MG/DL (0.50-1.00); GLOMERULAR FILTRATION RATE 62 ML/MIN (>89); GLUCOSE,RANDOM 126 MG/DL (74-106); SODIUM (NA) 141 MEQ/L (136-145)
[2018-04-02 06:00] LABS: ALKALINE PHOSPHATASE 83 U/L (45-117); TOTAL BILIRUBIN ADULT 0.4 MG/DL (0.2-1.0); TOTAL PROTEIN 5.1 GM/DL (6.4-8.2)
[2018-04-02] MEDS: HYDROCORTISONE SOD SUCCINATE 100 MG VIAL IV PUSH SCH ×3 (06:00→21:09)
--- NOTE | 2018-04-02 08:23 | HHI.CCPN ---
Subjective Remarks/Hospital Course 03/31: Ms. Reina is a 87-year-old ijscp-krwo-lwzssryg female with a past medical history pertinent for tonsillectomy, bilateral knee replacement, glaucoma, breast cancer with lumpectomy and radiation, gallbladder surgery, hernia surgery, COPD, CHF, non-Hodgkin's lymphoma with [address] 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 Patient's recent baseline is ambulating with a cane or walker and she is independent with all ADLs. Patient' s current clinical situation began back in October of this year when she began to have increasing weakness and respiratory infections. In January the patient had significant arm pain and was given steroid injections as an outpatient, patient developed thrush and at that time lesions around her anus and vaginal area performed. An outpatient tissue biopsy was done by her FELTER TENNIS BALLS and patient was put on antibiotics, although later discontinued antibiotics after the culture showed it was resistant to penicillin. The lesions continued to form on the vaginal and anal area, the patient also started developing significant mucus-like stools with bowel leakage. Weakness was increasing and weight loss developed, patient also had disorientation at times. On February 23 the patient was taken to [facility] ER and admitted with diagnosed with inflammatory colitis. Patient was discharged from [facility] February 25, 2018, with directions to follow-up with GI. On March 16, 2018 patient presented to [place] emergency room with abdominal pain, diarrhea, weight loss, and lack of appetite. Patient is a positive guaiac stool in the emergency department was ordered a CT abdomen and pelvis which revealed acute distal descending and sigmoid inflammatory changes, as well as a 2.4cm area of decreased density in the central portion of the liver, and a 1.5 cystic lesion on the head of the pancreas, patient was also started on any Protonix drip and GI was consulted. The patient's family previously declined workup of the pancreatic lesion. Patient underwent a flexible sigmoidoscopy on 03/[address] Alfonso and biopsy taken in the time revealed hyperplastic polyps. On morning of 03/31 patient developed altered mental status and subsequently spiked a fever of 102.1. Rapid response team was called and patient underwent chest x-ray, CT abdomen pelvis labs and was transferred to the ICU. Patient was evaluated by myself on arrival to the ICU. She was initially on a nonrebreather facemask when was drowsy though easily arousable knew she was in the hospital. She did appear slightly disoriented initially however this gradually improved. Following arrival to the ICU patient spiked temperature 103.1. She was given 1 g IV Ofirmev, stat blood cultures were ordered and initiated on empiric antibiotic coverage with IV Zosyn. A chest x-ray was essentially clear with no obvious infiltrates per my discussion with radiology. CT abdomen pelvis showed some thickening of the sigmoid colon consistent with a prior history of colitis. Patient had not had any diarrhea or rectal bleeding or [facility] my discussion with Dr. Lambert. Patient subsequently developed hypotension for which she received 2 L normal saline bolus and was started on Levophed for pressor support. 04/01: Much more awake and alert today. Minimal shortness of breath on laying flat. Complains of minimal left lower quadrant abdominal pain. Denies any chest pain nausea or vomiting. Drop in hemoglobin noted. No melena or rectal bleeding per night time babysitter RN. Off levo fed and vasopressin being titrated off. Good urine output 04/02: Resting in bed on nasal cannula not in any acute distress. Complains of some abdominal cramping in lower abdomen. Has not had any diarrhea or BLASTING HELPER. Received 1 unit PRBCs yesterday. Blood pressure running high now. Wants to get out of bed. Tolerating p.o. no appetite is decreased. Objective Vital Signs Date Time Temp Pulse Resp B/P (MAP) Pulse Ox O2 Delivery O2 Flow Rate FiO2 04/02/18 06:00 65 04/02/18 04:00 97.4 20 183/79 (113) 100 04/01/18 20:31 Nasal Cannula 4.50 Intake and Output 04/02/18 04/02/18 04/03/18 08:00 16:00 00:00 Intake Total 440 ml Output Total 300 ml Balance 140 ml Result Diagram: 04/02/1840404/02/18404 Objective Remarks HEENT/Neuro: Pallor present. No icterus, tongue moist, IKE, awake alert oriented x3, no she is at hospital, follow simple commands. nonfocal grossly, moving all 4 extremities Neck: No JVD Chest/pulmonary: CTA bilaterally Cardiovascular: S1-S2 regular no gallop or murmur GI/abdomen: Soft, left lower quadrant tenderness, no guarding, bowel sounds present Extremities: Warm bilaterally, trace edema A/P Assessment and Plan 87-year-old female with: Encephalopathy Fever Suspected septic shock Leukemoid reaction Colitis Recent GI bleed History of COPD History of CHF Plan: Neuro: Avoid sedatives and narcotics, follow neuro status. Cardiovascular: Status post 3 L normal saline bolus. Titrated off Levophed and Vasopressin. Saline lock IV fluids. Resuming lisinopril 5 mg daily and added hydrochlorothiazide 25 mg p.o. daily for hypertension. Pulmonary: Supplemental O2, bronchodilators as needed. GI/liver: Advance diet as tolerated. GI following. Renal/: strict intake output, monitor and replete electrolytes, follow BUN creatinine. ID: Chest x-ray is clear, UA appears fine. Suspect septic shock related to colitis with translocation of bacteria. Blood cultures obtained. Empiric antibiotic coverage with IV Zosyn, change Flagyl to PO. Stool for C. difficile ordered however no more diarrhea. Endocrine: As patient has been on chronic steroids, was started on stress dose steroids with hydrocortisone 100 mg IV every 8 hourly. We will decrease hydrocortisone to 50 mg IV every 8 hourly on 04/02 and gradually taper over the next few days and transition to p.o. prednisone. Watch for hyperglycemia, SSI for glycemic control if needed. Heme: Follow CBC. 1 unit PRBC transfused on 04/01. Lasix 20 mg IV following transfusion on 04/01. Prophylaxis: Pepcid/SCDs/subcu heparin Will get wound care consult for perianal skin breakdown/fistulas for recommendations Updated patient and her daughter at bedside. Elroy Hill MD Apr 02, 2018 08:23
[2018-04-02] MEDS ORDERED: PILL SPLITTER OTHER PRN (08:30)
[2018-04-02] MEDS: SODIUM CHLORIDE 0.9% FLUSH 10 ML FLUSH IV FLUSH SCH ×2 (08:45→20:56)
[2018-04-02] MEDS: FAMOTIDINE 20 MG TAB PO SCH ×2 (08:56→20:57)
[2018-04-02] MEDS: HYDROCHLOROTHIAZIDE 25 MG TAB PO SCH (08:56)
[2018-04-02] MEDS: LISINOPRIL 5 MG TAB PO SCH (08:57)
[2018-04-02] MEDS: TIMOLOL MALEATE 0.5% OPHT SOLN 5 ML BTL EACH EYE SCH ×2 (09:00→20:56)
[2018-04-02] MEDS: MESALAMINE 250 MG CAP PO SCH ×4 (09:00→20:57)
[2018-04-02] MEDS: HYDROCORTISONE ACETATE 25 MG SUPP RECTAL SCH ×3 (09:00→17:51)
[2018-04-02] MEDS: POTASSIUM CHLOR 40 MEQ PREMIX 100 ML IV SCH ×2 (13:23→17:25)
[2018-04-02] MEDS: metroNIDAZOLE 500 MG TAB PO SCH ×2 (14:40→21:09)
[2018-04-02] MEDS: PIPERACIL-TAZO 3.375 GM PREMIX 50 ML IV SCH ×2 (17:25→20:57)
--- NOTE | 2018-04-02 17:36 | OTSOAPIP ---
TIME SESSION COMPLETED: 1700 TREATMENT TIME: 0 MINS. CHART REVIEWED. ATTEMPTED TO SEE FOR OT ASSESSMENT, HOWEVER PATIENT WITH ELEVATED BLOOD PRESSURE, SYSTOLIC IN 200'S. SPOKE WITH RN VERNON BOYCE. WILL HOLD EVALUATION AND REATTEMPT TOMORROW. Therapist: GLORIA UGARTE, OTR/L Signature on file
[2018-04-02] MEDS: LATANOPROST 0.005% OPHT SOLN 2.5 ML BTL EACH EYE SCH (20:56)
[2018-04-03] VITALS (9 sets, daily range): BP systolic 160–190; BP diastolic 63–83; PULSE 64–84; RESP 16–27; TEMP 97.4–97.9; O2SAT 96–100
[2018-04-03] MEDS: PIPERACIL-TAZO 3.375 GM PREMIX 50 ML IV SCH ×4 (02:10→23:12)
[2018-04-03] MEDS: CHLORHEXIDINE GLUCONATE 2 % 1 PACK (2 CLOTHS) TOP SCH (03:35)
[2018-04-03] MEDS: HEPARIN SODIUM - SQ 10,000 UNITS/ML VIAL SQ SCH ×2 (03:35→15:00)
[2018-04-03] MEDS ORDERED: LABETALOL HCL 100 MG/20 ML VIAL IV PUSH PRN (04:15)
[2018-04-03] MEDS: HYDROCORTISONE SOD SUCCINATE 100 MG VIAL IV PUSH SCH ×3 (05:19→23:12)
[2018-04-03] MEDS: metroNIDAZOLE 500 MG TAB PO SCH ×3 (05:19→23:13)
[2018-04-03 06:10] LABS: AUTOMATED NEUTROPHIL # 8.4 TH/MM3 (1.8-7.7); HEMATOCRIT 26.3 % (35.0-46.0); HEMOGLOBIN 8.7 GM/DL (11.6-15.3); LYMPH % 5.2 % (9.0-44.0); LYMPHOCYTE # 0.5 TH/MM3 (1.0-4.8); MEAN CELL VOLUME 88.1 FL (80.0-100.0); MEAN CORPUSCULAR HEMOGLOBIN 29.2 PG (27.0-34.0); MEAN CORPUSCULAR HGB CONC 33.2 % (32.0-36.0); MEAN PLATELET VOLUME 7.9 FL (7.0-11.0); MONO % 2.8 % (0.0-8.0); MONOCYTE # 0.3 TH/MM3 (0-0.9); PLATELET COUNT 192 TH/MM3 (150-450); RED BLOOD COUNT 2.98 MIL/MM3 (4.00-5.30); RED CELL DISTRIBUTION WIDTH 16.3 % (11.6-17.2); WHITE BLOOD COUNT 9.2 TH/MM3 (4.0-11.0)
[2018-04-03 06:56] LABS: ALBUMIN 2.3 GM/DL (3.4-5.0); ALKALINE PHOSPHATASE 76 U/L (45-117); ALT (GPT) 15 U/L (10-53); AST (GOT) 6 U/L (15-37); BICARBONATE 26.2 MEQ/L (21.0-32.0); BLOOD UREA NITROGEN 20 MG/DL (7-18); CALCIUM 8.1 MG/DL (8.5-10.1); CHLORIDE 103 MEQ/L (98-107); GLOMERULAR FILTRATION RATE 79 ML/MIN (>89); GLUCOSE,RANDOM 106 MG/DL (74-106); SODIUM (NA) 141 MEQ/L (136-145); TOTAL BILIRUBIN ADULT 0.5 MG/DL (0.2-1.0); TOTAL PROTEIN 5.3 GM/DL (6.4-8.2)
[2018-04-03] MEDS: HYDROCHLOROTHIAZIDE 25 MG TAB PO SCH (07:58)
[2018-04-03] MEDS: MESALAMINE 250 MG CAP PO SCH ×4 (07:58→23:12)
[2018-04-03] MEDS: FAMOTIDINE 20 MG TAB PO SCH ×2 (07:58→23:13)
[2018-04-03] MEDS: LISINOPRIL 5 MG TAB PO SCH (07:58)
[2018-04-03] MEDS: SODIUM CHLORIDE 0.9% FLUSH 10 ML FLUSH IV FLUSH SCH ×2 (07:59→23:13)
[2018-04-03] MEDS: HYDROCORTISONE ACETATE 25 MG SUPP RECTAL SCH ×3 (07:59→18:00)
--- NOTE | 2018-04-03 08:20 | HHI.PR ---
Subjective Remarks Pt awake alert and oriented. Having normal BMs. Denies pain. Admits to mild abdominal cramps when she has to have BM. Wants to go back to Rehab. Objective Vital Signs Date Time Temp Pulse Resp B/P (MAP) Pulse Ox O2 Delivery O2 Flow Rate FiO2 04/03/18 07:29 99 Nasal Cannula 3.00 04/03/18 06:00 64 04/03/18 04:00 97.9 84 27 190/83 (118) 100 04/03/18 04:00 84 04/03/18 02:00 82 04/03/18 00:00 76 04/03/18 00:00 97.6 76 18 177/81 (113) 96 04/02/18 22:00 75 04/02/18 21:35 96 21 04/02/18 20:00 66 04/02/18 20:00 97.4 66 21 153/77 (102) 96 04/02/18 19:00 96 Room Air 04/02/18 18:00 80 04/02/18 16:00 97.7 74 14 178/80 (112) 97 04/02/18 16:00 80 04/02/18 14:00 70 04/02/18 12:00 85 04/02/18 12:00 97.6 65 26 158/72 (100) 99 04/02/18 11:00 99 Nasal Cannula 1.00 04/02/18 10:00 80 04/02/18 09:33 98 Nasal Cannula 1.00 I/O 04/02/18 04/02/18 04/02/18 04/03/18 04/03/18 04/03/18 07:00 15:00 23:00 07:00 15:00 23:00 Intake Total 440 ml 177 ml 780 ml 240 ml Output Total 300 ml Balance 140 ml 177 ml 780 ml 240 ml Intake Oral 240 ml 360 ml 240 ml IV Total 200 ml 177 ml 420 ml Output Urine Total 300 ml # Voids 2 2 # Bowel Movements 1 2 1 Result Diagram: 04/03/1852404/03/18524 Objective Remarks VS-S Abd: obese,soft, no tenderness. Assessment and Plan Assessment and Plan Septic episode resolved. No obvious etiology Continue stress steroids and taper more slowly Allen Alfonso MD Apr 03, 2018 08:20
--- NOTE | 2018-04-03 08:29 | HHI.PR ---
Subjective Remarks in no acute distress. has minimal to mild abdominal cramps. no nausea/ vomiting or diarrhea. afebrile. BP stable. d/w the RN at the bedside. Objective Vitals Vital Signs Date Time Temp Pulse Resp B/P (MAP) Pulse Ox O2 Delivery O2 Flow Rate FiO2 04/03/18 07:29 99 Nasal Cannula 3.00 04/03/18 06:00 64 04/03/18 04:00 97.9 84 27 190/83 (118) 100 04/03/18 04:00 84 04/03/18 02:00 82 04/03/18 00:00 76 04/03/18 00:00 97.6 76 18 177/81 (113) 96 04/02/18 22:00 75 04/02/18 21:35 96 21 04/02/18 20:00 66 04/02/18 20:00 97.4 66 21 153/77 (102) 96 04/02/18 19:00 96 Room Air 04/02/18 18:00 80 04/02/18 16:00 97.7 74 14 178/80 (112) 97 04/02/18 16:00 80 04/02/18 14:00 70 04/02/18 12:00 85 04/02/18 12:00 97.6 65 26 158/72 (100) 99 04/02/18 11:00 99 Nasal Cannula 1.00 04/02/18 10:00 80 04/02/18 09:33 98 Nasal Cannula 1.00 I/O 04/02/18 04/02/18 04/02/18 04/03/18 04/03/18 04/03/18 07:00 15:00 23:00 07:00 15:00 23:00 Intake Total 440 ml 177 ml 780 ml 240 ml Output Total 300 ml Balance 140 ml 177 ml 780 ml 240 ml Intake Oral 240 ml 360 ml 240 ml IV Total 200 ml 177 ml 420 ml Output Urine Total 300 ml # Voids 2 2 # Bowel Movements 1 2 1 Result Diagram: 04/03/18 0525 04/03/18 0525 Imaging Last Impressions Chest X-Ray 04/01/18 0000 Signed Impressions: CONCLUSION: Bibasilar subsegmental atelectasis. Objective Remarks GENERAL: This is a well-nourished, well-developed patient, in no apparent distress. CARDIOVASCULAR: Regular rate and regular rhythm without murmurs, gallops, or rubs. RESPIRATORY: Clear to auscultation. Breath sounds equal bilaterally. No wheezes , rales, or rhonchi. GASTROINTESTINAL: Abdomen soft, non-tender, nondistended. Normal, active bowel sounds MUSCULOSKELETAL: Extremities without clubbing, cyanosis, or edema. NEURO: Alert & Oriented x4 to person, place, time, situation. Moves all ext x4 Medications and IVs Inpatient Medications Acetaminophen (Tylenol) 650 mg Q4H PRN PO SEE LABEL COMMENTS Last administered on 04/01/18 21:59; Start 04/01/18 at 08:00; Stop 04/01/18 at 22:00; Status DC Albumin Human 50 ml @ 60 mls/hr Q12H IV Last administered on 04/01/18at 04:18; Start 03/31/18 at 16:00; Stop 04/01/18 at 08:05; Status DC Albuterol/ Ipratropium (Duoneb Neb) 1 ampule Q4HR NEB PRN INH WHEEZING; Start 03/31/18 at 10:00 Chlorhexidine Gluconate (Chlorhexidine 2% Cloth) 3 pack UNSCH PRN TOP HYGIENIC CARE; Start 03/31/18 at 10:00 Famotidine (Pepcid Inj) 10 mg Q12HR IV PUSH Last administered on 04/01/18at 21: 59; Start 03/31/18 at 21:00; Stop 04/02/18 at 08:09; Status DC Famotidine (Pepcid) 10 mg BID PO Last administered on 04/03/18at 07:58; Start at 09:00 Furosemide (Lasix Inj) 20 mg ONCE ONCE IV PUSH Last administered on 04/01/18at 12:17; Start 04/01/18 at 08:00; Stop 04/01/18 at 08:01; Status DC Heparin Sodium (Porcine) (Heparin Inj) 5,000 units Q12H SQ Last administered on 04/03/18at 03:35; Start 03/31/18 at 16:00 Hydrochlorothiazide (Hydrodiuril) 25 mg DAILY PO Last administered on at 07:58; Start 04/02/18 at 09:00 Hydrocortisone Acetate (Hemorrhoidal Hc Supp) 25 mg TID RECTAL Last administered on 04/03/18 07:59; Start 04/02/18 at 09:00 Hydrocortisone Sodium Succinate (SoluCORTEF INJ) 50 mg Q8HR IV PUSH Last administered on 04/03/18 05:19; Start 04/02/18 at 14:00 Hydromorphone HCl (Dilaudid Pf Inj) 0.2 mg Q4H PRN IV PUSH pain 8-10 or not taking po Last administered on 04/01/18at 15:29; Start 03/31/18 at 22:45; Stop at 08:09; Status DC Labetalol HCl (Trandate Inj) 10 mg Q4H PRN IV PUSH SBP>160, DBP>90 Last administered on 04/03/18at 04:28; Start 04/03/18 at 04:15 Latanoprost (Xalatan 0.005% Opth Soln) 1 drop HS EACH EYE Last administered on 04/02/18at 20:56; Start 04/02/18 at 21:00 Lisinopril (Prinivil) 5 mg DAILY PO Last administered on 04/03/18 07:58; Start 04/02/18 at 09:00 Mesalamine (Pentasa Sr) 1,000 mg QID PO Last administered on 04/03/18 07:58; Start 04/02/18 at 09:00 Metronidazole (Flagyl) 500 mg Q8HR PO Last administered on 04/03/18 05:19; Start 04/02/18 at 14:00 Miscellaneous (Pill Splitter) 1 ea UNSCH PRN OTHER SEE LABEL COMMENTS; Start at 08:30 Miscellaneous Information ([facility] Nursing Information) 1 [id number] [id number] Last administered on 03/31/18at 10:22; Start 03/31/18 at 10:00 Norepinephrine Bitartrate 250 ml @ 7.5 mls/hr TITRATE PRN IV Blood pressure management Last administered on 03/31/18at 10:55; Start 03/31/18 at 13:30; Stop 04/02/18 at 08:09; Status DC Piperacillin Sod/ Tazobactam Sod 50 ml @ 100 mls/hr Q6H IV Last administered on 04/03/18at 07:59; Start 04/02/18 at 15:00 Potassium Bicarb/ Potassium Chloride (K-Lyte Cl Eff) 25 meq ONCE ONCE PO Last administered on 04/01/18at 17:15; Start 04/01/18 at 17:00; Stop 04/01/18 at 17:01; Status DC Potassium Chloride 100 ml @ 25 mls/hr Q4H IV Last administered on 04/02/18 17 :25; Start 04/02/18 at 09:00; Stop 04/02/18 at 16:59; Status DC Potassium Chloride (KCl) 20 meq ONCE ONCE PO Last administered on 04/01/18 17 :15; Start 04/01/18 at 16:45; Stop 04/01/18 at 16:46; Status DC Prednisone (Deltasone) 10 mg DAILY PO Last administered on 04/03/18at 07:58; Start 04/03/18 at 09:00 Sodium Chloride 250 ml @ 15 mls/hr ONCE ONCE IV Last administered on at 12:17; Start 04/01/18 at 08:00; Stop 04/02/18 at 00:39; Status DC Sodium Chloride (NS Flush) 2 ml BID IV FLUSH Last administered on 04/03/18at 07: 59; Start 03/31/18 at 21:00 Terbutaline Sulfate (Brethine Inj) 1 mg UNSCH PRN SQ For Extravasation; Start 03/31/18 at 11:45 Timolol Maleate (Timoptic 0.5% Opt Soln) 1 drop BID EACH EYE Last administered on 04/02/18at 20:56; Start 04/02/18 at 09:00 Vasopressin 40 units/Dextrose 100 ml @ 3 mls/hr Q24H IV Last administered on at 14:31; Start 03/31/18 at 13:24; Stop 04/02/18 at 08:09; Status DC A/P Assessment and Plan A/P Encephalopathy- resolved Suspected septic shock- suspect colitis- will deescalate the antibiotic regimen within the next 24 hrs if stable. will start to taper down the IV steroids. of note evaluated by GI and colorectal surgery- no interventions at this time. Hypokalemia; will replace and monitor. Hypertension; started on low dose CARLA- continue to monitor and adjust the regimen as needed. DVT prophylaxis; subq Heparin continue PT/OT. transfer to floor. Discharge Planning dc planning; rehab within the next 24-48 hrs if stable. Chidi Quiñonez MD Apr 03, 2018 08:29
[2018-04-03] MEDS ORDERED: POTASSIUM CHLOR 20 MEQ PREMIX 100 ML IV ONE ×2 (08:30→14:45)
[2018-04-03] MEDS ORDERED: POTASSIUM CHLORIDE 20 MEQ CONTROLLED RELEASE TAB PO ONE ×2 (08:30→13:00)
[2018-04-03] MEDS: TIMOLOL MALEATE 0.5% OPHT SOLN 5 ML BTL EACH EYE SCH ×2 (09:00→21:00)
[2018-04-03] MEDS ORDERED: predniSONE 10 MG TAB PO SCH (09:00)
--- NOTE | 2018-04-03 13:43 | PD.WCN.NOT ---
Wound Consult Description: Wound consult ordered by for wound management. Communicated with: Ingrid CORCORAN, Recommendation: Please continue current wound care orders from 1. Cleanse perianal/genital area with remedy barrier soft clothe wipes. 2. Apply thick layer of Calazime cream to perianal area BID or after stooling. 3. Follow up with out patient wound center if needed. Additional Information: Patient was seen by underwriter on 03/24 and seen by 03/27 rafita anal fissures healing please continue current wound care orders. Cass[facility] Apr 03, 2018 13:43
[2018-04-03] MEDS ORDERED: PROCHLORPERAZINE INJ 10 MG/2 ML VIAL IV PRN (14:45)
[2018-04-03] MEDS: LATANOPROST 0.005% OPHT SOLN 2.5 ML BTL EACH EYE SCH (23:21)
[2018-04-04] VITALS (9 sets, daily range): BP systolic 175–201; BP diastolic 79–98; PULSE 71–92; RESP 18–20; TEMP 97.1–97.5; O2SAT 93–99
[2018-04-04] MEDS: CHLORHEXIDINE GLUCONATE 2 % 1 PACK (2 CLOTHS) TOP SCH (04:00)
[2018-04-04] MEDS: HEPARIN SODIUM - SQ 10,000 UNITS/ML VIAL SQ SCH ×2 (04:52→15:33)
[2018-04-04] MEDS: PIPERACIL-TAZO 3.375 GM PREMIX 50 ML IV SCH ×4 (04:52→21:10)
[2018-04-04] MEDS: metroNIDAZOLE 500 MG TAB PO SCH ×3 (04:53→21:09)
[2018-04-04 08:11] LABS: AUTOMATED NEUTROPHIL # 5.1 TH/MM3 (1.8-7.7); BASOPHIL % 0.2 % (0.0-2.0); HEMATOCRIT 28.5 % (35.0-46.0); HEMOGLOBIN 9.5 GM/DL (11.6-15.3); LYMPHOCYTE # 0.3 TH/MM3 (1.0-4.8); MEAN CELL VOLUME 88.2 FL (80.0-100.0); MEAN CORPUSCULAR HEMOGLOBIN 29.5 PG (27.0-34.0); MEAN CORPUSCULAR HGB CONC 33.5 % (32.0-36.0); MEAN PLATELET VOLUME 7.7 FL (7.0-11.0); MONO % 7.1 % (0.0-8.0); MONOCYTE # 0.4 TH/MM3 (0-0.9); NEUT % 86.7 % (16.0-70.0); PLATELET COUNT 204 TH/MM3 (150-450); RED BLOOD COUNT 3.23 MIL/MM3 (4.00-5.30); WHITE BLOOD COUNT 5.8 TH/MM3 (4.0-11.0)
[2018-04-04 08:35] LABS: BICARBONATE 31.4 MEQ/L (21.0-32.0); CALCIUM 8.4 MG/DL (8.5-10.1); CREATININE 0.63 MG/DL (0.50-1.00)
[2018-04-04] MEDS: TIMOLOL MALEATE 0.5% OPHT SOLN 5 ML BTL EACH EYE SCH ×2 (09:20→21:18)
[2018-04-04] MEDS: SODIUM CHLORIDE 0.9% FLUSH 10 ML FLUSH IV FLUSH SCH ×2 (09:21→21:19)
[2018-04-04] MEDS: HYDROCORTISONE SOD SUCCINATE 100 MG VIAL IV PUSH SCH (09:22)
[2018-04-04] MEDS: LISINOPRIL 5 MG TAB PO SCH (09:22)
[2018-04-04] MEDS: MESALAMINE 250 MG CAP PO SCH ×4 (09:23→21:09)
[2018-04-04] MEDS: HYDROCORTISONE ACETATE 25 MG SUPP RECTAL SCH ×2 (09:24→13:00)
[2018-04-04] MEDS: FAMOTIDINE 20 MG TAB PO SCH ×2 (09:24→21:09)
[2018-04-04] MEDS: HYDROCHLOROTHIAZIDE 25 MG TAB PO SCH (09:24)
[2018-04-04] MEDS: POTASSIUM CHLOR 20 MEQ PREMIX 100 ML IV ONE (11:00)
[2018-04-04] MEDS ORDERED: POTASSIUM CHLORIDE 25 MEQ EFFERVESCENT TAB PO ONE ×3 (11:00→19:00)
--- NOTE | 2018-04-04 11:04 | HHI.PR ---
Subjective Remarks sitting on the chair with no acute distress. has mild abdominal cramps. no nausea or vomiting or fever. couldn't tolerated the potassium pills yesterday. BP trend noted. d/w the RN at the bedside. Objective Vitals Vital Signs Date Time Temp Pulse Resp B/P (MAP) Pulse Ox O2 Delivery O2 Flow Rate FiO2 04/04/18 08:00 97.5 77 20 201/98 (132) 96 04/04/18 04:00 97.4 72 18 180/83 (115) 93 04/04/18 00:00 97.4 92 20 197/92 (127) 98 04/03/18 20:01 21 04/03/18 20:00 97.7 77 20 185/82 (116) 98 04/03/18 16:00 76 04/03/18 16:00 97.7 76 16 160/72 (101) 96 04/03/18 12:00 97.6 74 19 183/63 (103) 96 04/03/18 12:00 74 I/O 04/03/18 04/03/18 04/03/18 04/04/18 04/04/18 04/04/18 07:00 15:00 23:00 07:00 15:00 23:00 Intake Total 240 ml 840 ml Balance 240 ml 840 ml Intake Oral 240 ml 840 ml # Voids 2 5 # Bowel Movements 1 4 Result Diagram: 04/04/18 0755 04/04/18 0755 Objective Remarks GENERAL: This is a well-nourished, well-developed patient, in no apparent distress. CARDIOVASCULAR: Regular rate and regular rhythm without murmurs, gallops, or rubs. RESPIRATORY: Clear to auscultation. Breath sounds equal bilaterally. No wheezes , rales, or rhonchi. GASTROINTESTINAL: Abdomen soft, non-tender, nondistended. Normal, active bowel sounds MUSCULOSKELETAL: Extremities without clubbing, cyanosis, or edema. NEURO: Alert & Oriented x4 to person, place, time, situation. Moves all ext x4 Medications and IVs Inpatient Medications Acetaminophen (Tylenol) 650 mg Q4H PRN PO SEE LABEL COMMENTS Last administered on 04/01/18at 21:59; Start 04/01/18 at 08:00; Stop 04/01/18 at 22:00; Status DC Albumin Human 50 ml @ 60 mls/hr Q12H IV Last administered on 04/01/18at 04:18; Start 03/31/18 at 16:00; Stop 04/01/18 at 08:05; Status DC Albuterol/ Ipratropium (Duoneb Neb) 1 ampule Q4HR NEB PRN INH WHEEZING; Start 03/31/18 at 10:00 Chlorhexidine Gluconate (Chlorhexidine 2% Cloth) 3 pack UNSCH PRN TOP HYGIENIC CARE; Start 03/31/18 at 10:00 Famotidine (Pepcid Inj) 10 mg Q12HR IV PUSH Last administered on 04/01/18at 21: 59; Start 03/31/18 at 21:00; Stop 04/02/18 at 08:09; Status DC Famotidine (Pepcid) 10 mg BID PO Last administered on 04/04/18at 09:24; Start at 09:00 Furosemide (Lasix Inj) 20 mg ONCE ONCE IV PUSH Last administered on 04/01/18at 12:17; Start 04/01/18 at 08:00; Stop 04/01/18 at 08:01; Status DC Heparin Sodium (Porcine) (Heparin Inj) 5,000 units Q12H SQ Last administered on 04/04/18at 04:52; Start 03/31/18 at 16:00 Hydrochlorothiazide (Hydrodiuril) 25 mg DAILY PO Last administered on at 09:24; Start 04/02/18 at 09:00 Hydrocortisone Acetate (Hemorrhoidal Hc Supp) 25 mg TID RECTAL Last administered on 04/04/18at 09:24; Start 04/02/18 at 09:00 Hydrocortisone Sodium Succinate (SoluCORTEF INJ) 50 mg Q12HR IV PUSH Last administered on 04/04/18at 09:22; Start 04/03/18 at 09:00 Hydromorphone HCl (Dilaudid Pf Inj) 0.2 mg Q4H PRN IV PUSH pain 8-10 or not taking po Last administered on 04/01/18at 15:29; Start 03/31/18 at 22:45; Stop at 08:09; Status DC Labetalol HCl (Trandate Inj) 10 mg Q4H PRN IV PUSH SBP>160, DBP>90 Last administered on 04/03/18 04:28; Start 04/03/18 at 04:15 Latanoprost (Xalatan 0.005% Opt Soln) 1 drop HS EACH EYE Last administered on 04/03/18at 23:21; Start 04/02/18 at 21:00 Lisinopril (Prinivil) 5 mg DAILY PO Last administered on 04/04/18 09:22; Start 04/02/18 at 09:00 Mesalamine (Pentasa Sr) 1,000 mg QID PO Last administered on 04/04/18 09:23; Start 04/02/18 at 09:00 Metronidazole (Flagyl) 500 mg Q8HR PO Last administered on 04/04/18at 04:53; Start 04/02/18 at 14:00 Miscellaneous (Pill Splitter) 1 ea UNSCH PRN OTHER SEE LABEL COMMENTS; Start at 08:30 Miscellaneous Information ([facility] [place] [facility] Information) 1 Q361D XX Last administered on 03/31/18at 10:22; Start 03/31/18 at 10:00 Norepinephrine Bitartrate 250 ml @ 7.5 mls/hr TITRATE PRN IV Blood pressure management Last administered on 03/31/18at 10:55; Start 03/31/18 at 13:30; Stop 04/02/18 at 08:09; Status DC Piperacillin Sod/ Tazobactam Sod 50 ml @ 100 mls/hr Q6H IV Last administered on 04/04/18at 09:20; Start 04/02/18 at 15:00 Potassium Bicarb/ Potassium Chloride (K-Lyte Cl Eff) 25 meq ONCE ONCE PO Last administered on 04/01/18at 17:15; Start 04/01/18 at 17:00; Stop 04/01/18 at 17:01; Status DC Potassium Chloride 100 ml @ 50 mls/hr ONCE ONCE IV Last administered on at 14:57; Start 04/03/18 at 14:45; Stop 04/03/18 at 16:44; Status DC Potassium Chloride (KCl) 40 meq ONCE ONCE PO ; Start 04/03/18 at 13:00; Stop at 13:01; Status DC Prednisone (Deltasone) 10 mg DAILY PO Last administered on 04/03/18 07:58; Start 04/03/18 at 09:00; Status Future Hold Prochlorperazine Edisylate (Compazine Inj) 5 mg Q8H PRN IV NAUSEA OR VOMITING Last administered on 04/03/18 14:57; Start 04/03/18 at 14:45 Sodium Chloride 250 ml @ 15 mls/hr ONCE ONCE IV Last administered on 12:17; Start 04/01/18 at 08:00; Stop 04/02/18 at 00:39; Status DC Sodium Chloride (NS Flush) 2 ml BID IV FLUSH Last administered on 04/04/18 09: 21; Start 03/31/18 at 21:00 Terbutaline Sulfate (Brethine Inj) 1 mg UNSCH PRN SQ For Extravasation; Start 03/31/18 at 11:45 Timolol Maleate (Timoptic 0.5% Opth Soln) 1 drop BID EACH EYE Last administered on 04/04/18 09:20; Start 04/02/18 at 09:00 Vasopressin 40 units/Dextrose 100 ml @ 3 mls/hr Q24H IV Last administered on 14:31; Start 03/31/18 at 13:24; Stop 04/02/18 at 08:09; Status DC A/P Assessment and Plan A/P Encephalopathy- resolved Suspected septic shock- suspect colitis- of note one bottle of blood cultures on 03/31 positive for strep group A- however the repeated blood cultures negative so far. will deescalate the antibiotic regimen tomorrow if stable. will stop IV steroids and start on prednisone. of note evaluated by GI and colorectal surgery- no interventions at this time. Hypokalemia; will replace and monitor. Hypertension; will increase lisinopril to 20 mg daily- will monitor and adjust the regimen as needed. DVT prophylaxis; subq Heparin continue PT/OT. Discharge Planning dc planning; rehab within the next 24-48 hrs if stable- with better BP control and improved electrolytes. Chidi Quiñonez MD Apr 04, 2018 11:04
[2018-04-04] MEDS ORDERED: LISINOPRIL 5 MG TAB PO ONE (12:00)
--- NOTE | 2018-04-04 13:46 | HHI.PR ---
Subjective Remarks Pt awake alert and oriented. Having normal BMs. Denies pain. Admits to mild abdominal cramps when she has to have BM. Wants to go back to Rehab. Objective Vital Signs Date Time Temp Pulse Resp B/P (MAP) Pulse Ox O2 Delivery O2 Flow Rate FiO2 04/04/18 11:52 98 21 04/04/18 08:00 97.5 77 20 201/98 (132) 96 04/04/18 04:00 97.4 72 18 180/83 (115) 93 04/04/18 00:00 97.4 92 20 197/92 (127) 98 04/03/18 20:01 21 04/03/18 20:00 97.7 77 20 185/82 (116) 98 04/03/18 16:00 76 04/03/18 16:00 97.7 76 16 160/72 (101) 96 I/O 04/03/18 04/03/18 04/03/18 04/04/18 04/04/18 04/04/18 07:00 15:00 23:00 07:00 15:00 23:00 Intake Total 240 ml 840 ml 0 ml Balance 240 ml 840 ml 0 ml Intake Oral 240 ml 840 ml IV Total 0 ml # Voids 2 5 # Bowel Movements 1 4 Result Diagram: 04/04/18 0755 04/04/18 0755 Objective Remarks VS-S Abd: obese,soft, no tenderness. Assessment and Plan Assessment and Plan Septic episode resolved. No obvious etiology. Wants to go back to rehab Continue stress steroids and taper more slowly I will see only as needed. Reconsult GI or me for further questions Allen Alfonso MD Apr 04, 2018 13:46
[2018-04-04] MEDS: LATANOPROST 0.005% OPHT SOLN 2.5 ML BTL EACH EYE SCH (21:27)
[2018-04-05] VITALS (7 sets, daily range): BP systolic 128–183; BP diastolic 60–77; PULSE 61–117; RESP 17–19; TEMP 97.2–98; O2SAT 92–99
[2018-04-05] MEDS: CHLORHEXIDINE GLUCONATE 2 % 1 PACK (2 CLOTHS) TOP SCH (04:00)
[2018-04-05] MEDS: metroNIDAZOLE 500 MG TAB PO SCH ×3 (04:33→22:13)
[2018-04-05] MEDS: HEPARIN SODIUM - SQ 10,000 UNITS/ML VIAL SQ SCH ×2 (04:33→16:07)
[2018-04-05] MEDS: PIPERACIL-TAZO 3.375 GM PREMIX 50 ML IV SCH ×4 (09:00→22:13)
--- NOTE | 2018-04-05 10:20 | HHI.PR ---
Subjective Remarks in no acute distress. but uncomfortable with abdominal cramps. no nausea. afebrile. Objective Vitals Vital Signs Date Time Temp Pulse Resp B/P (MAP) Pulse Ox O2 Delivery O2 Flow Rate FiO2 04/05/18 09:02 96 21 04/05/18 08:00 98.0 86 17 159/73 (101) 96 04/05/18 04:00 97.5 79 18 142/70 (94) 96 04/05/18 00:00 97.7 61 18 183/77 (112) 99 04/04/18 21:43 97.3 71 18 199/84 (122) 95 04/04/18 20:33 99 04/04/18 16:51 97.1 79 20 177/79 (111) 96 04/04/18 16:00 97.1 79 20 177/79 (111) 96 04/04/18 13:59 Room Air 3.00 21 04/04/18 12:00 97.3 87 18 175/84 (114) 98 04/04/18 11:52 98 21 I/O 04/04/18 04/04/18 04/04/18 04/05/18 04/05/18 04/05/18 07:00 15:00 23:00 07:00 15:00 23:00 Intake Total 0 ml 870 ml 240 ml Balance 0 ml 870 ml 240 ml Intake Oral 720 ml 240 ml IV Total 0 ml 150 ml # Voids 3 Result Diagram: 04/04/18 0755 04/04/18 0755 Objective Remarks GENERAL: This is a well-nourished, well-developed patient, in no apparent distress. CARDIOVASCULAR: Regular rate and regular rhythm without murmurs, gallops, or rubs. RESPIRATORY: Clear to auscultation. Breath sounds equal bilaterally. No wheezes , rales, or rhonchi. GASTROINTESTINAL: Abdomen soft, non-tender, nondistended. Normal, active bowel sounds MUSCULOSKELETAL: Extremities with bilateral pedal edema. NEURO: Alert & Oriented x4 to person, place, time, situation. Moves all ext x4 Medications and IVs Inpatient Medications Acetaminophen (Tylenol) 650 mg Q4H PRN PO SEE LABEL COMMENTS Last administered on 04/01/18at 21:59; Start 04/01/18 at 08:00; Stop 04/01/18 at 22:00; Status DC Albumin Human 50 ml @ 60 mls/hr Q12H IV Last administered on 04/01/18at 04:18; Start 03/31/18 at 16:00; Stop 04/01/18 at 08:05; Status DC Albuterol/ Ipratropium (Duoneb Neb) 1 ampule Q4HR NEB PRN INH WHEEZING; Start 03/31/18 at 10:00 Chlorhexidine Gluconate (Chlorhexidine 2% Cloth) 3 pack UNSCH PRN TOP HYGIENIC CARE; Start 03/31/18 at 10:00 Famotidine (Pepcid Inj) 10 mg Q12HR IV PUSH Last administered on 04/01/18at 21: 59; Start 03/31/18 at 21:00; Stop 04/02/18 at 08:09; Status DC Famotidine (Pepcid) 10 mg BID PO Last administered on 04/04/18at 21:09; Start at 09:00 Furosemide (Lasix Inj) 20 mg ONCE ONCE IV PUSH Last administered on 04/01/18at 12:17; Start 04/01/18 at 08:00; Stop 04/01/18 at 08:01; Status DC Heparin Sodium (Porcine) (Heparin Inj) 5,000 units Q12H SQ Last administered on 04/05/18at 04:33; Start 03/31/18 at 16:00 Hydrochlorothiazide (Hydrodiuril) 25 mg DAILY PO Last administered on at 09:24; Start 04/02/18 at 09:00 Hydrocortisone Acetate (Hemorrhoidal Hc Supp) 25 mg TID RECTAL Last administered on 04/04/18at 09:24; Start 04/02/18 at 09:00; Stop 04/04/18 at 14:05 ; Status DC Hydrocortisone Sodium Succinate (SoluCORTEF INJ) 50 mg Q12HR IV PUSH Last administered on 04/04/18at 09:22; Start 04/03/18 at 09:00; Stop 04/04/18 at 11:01 ; Status DC Hydromorphone HCl (Dilaudid Pf Inj) 0.2 mg Q4H PRN IV PUSH pain 8-10 or not taking po Last administered on 04/01/18at 15:29; Start 03/31/18 at 22:45; Stop at 08:09; Status DC Labetalol HCl (Trandate Inj) 10 mg Q4H PRN IV PUSH SBP>160, DBP>90 Last administered on 04/03/18at 04:28; Start 04/03/18 at 04:15 Latanoprost (Xalatan 0.005% Opth Soln) 1 drop HS EACH EYE Last administered on 04/04/18at 21:27; Start 04/02/18 at 21:00 Lisinopril (Prinivil) 20 mg DAILY PO ; Start 04/05/18 at 09:00 Mesalamine (Pentasa Sr) 1,000 mg QID PO Last administered on 04/04/18at 21:09; Start 04/02/18 at 09:00 Metronidazole (Flagyl) 500 mg Q8HR PO Last administered on 04/05/18at 04:33; Start 04/02/18 at 14:00 Miscellaneous (Pill Splitter) 1 ea UNSCH PRN OTHER SEE LABEL COMMENTS; Start at 08:30 Miscellaneous Information ([facility] [place] Nursing Information) 1 Q361D XX Last administered on 03/31/18at 10:22; Start 03/31/18 at 10:00 Norepinephrine Bitartrate 250 ml @ 7.5 mls/hr TITRATE PRN IV Blood pressure management Last administered on 03/31/18at 10:55; Start 03/31/18 at 13:30; Stop 04/02/18 at 08:09; Status DC Piperacillin Sod/ Tazobactam Sod 50 ml @ 100 mls/hr Q6H IV Last administered on 04/04/18at 21:10; Start 04/02/18 at 15:00 Potassium Bicarb/ Potassium Chloride (K-Lyte Cl Eff) 25 meq ONCE ONCE PO Last administered on 04/04/18at 21:09; Start 04/04/18 at 19:00; Stop 04/04/18 at 19:01; Status DC Potassium Chloride 100 ml @ 50 mls/hr BOLUS ONCE IV Last administered on 04/04at 11:00; Start 04/04/18 at 11:00; Stop 04/04/18 at 12:59; Status DC Potassium Chloride (KCl) 40 meq ONCE ONCE PO ; Start 04/03/18 at 13:00; Stop at 13:01; Status DC Prednisone (Deltasone) 40 mg DAILY PO ; Start 04/05/18 at 09:00 Prochlorperazine Edisylate (Compazine Inj) 5 mg Q8H PRN IV NAUSEA OR VOMITING Last administered on 04/03/18at 14:57; Start 04/03/18 at 14:45 Sodium Chloride 250 ml @ 15 mls/hr ONCE ONCE IV Last administered on at 12:17; Start 04/01/18 at 08:00; Stop 04/02/18 at 00:39; Status DC Sodium Chloride (NS Flush) 2 ml BID IV FLUSH Last administered on 04/04/18at 21: 19; Start 03/31/18 at 21:00 Terbutaline Sulfate (Brethine Inj) 1 mg UNSCH PRN SQ For Extravasation; Start 03/31/18 at 11:45 Timolol Maleate (Timoptic 0.5% Opth Soln) 1 drop BID EACH EYE Last administered on 04/04/18at 21:18; Start 04/02/18 at 09:00 Vasopressin 40 units/Dextrose 100 ml @ 3 mls/hr Q24H IV Last administered on at 14:31; Start 03/31/18 at 13:24; Stop 04/02/18 at 08:09; Status DC A/P Assessment and Plan A/P Encephalopathy- resolved Suspected septic shock- suspect colitis- of note one bottle of blood cultures on 03/31 positive for strep group A- however the repeated blood cultures negative so far. will deescalate the antibiotic regimen tomorrow if stable. will stop IV steroids and start on prednisone. of note evaluated by GI and colorectal surgery- no interventions at this time. Hypokalemia; replaced- will monitor. Hypertension; better today- continue lisinopril and monitor. bilateral pedal edema; will check venous doppler to r/o DVT. DVT prophylaxis; subq Heparin continue PT/OT. Discharge Planning dc planning; rehab tomorrow if BP and pain is better. Chidi Quiñonez MD Apr 05, 2018 10:20
[2018-04-05] MEDS ORDERED: POTASSIUM CHLORIDE 25 MEQ EFFERVESCENT TAB PO ONE ×2 (11:00→15:00)
[2018-04-05] MEDS: TIMOLOL MALEATE 0.5% OPHT SOLN 5 ML BTL EACH EYE SCH ×2 (11:16→22:25)
[2018-04-05] MEDS: SODIUM CHLORIDE 0.9% FLUSH 10 ML FLUSH IV FLUSH SCH ×2 (11:16→22:29)
[2018-04-05] MEDS: POTASSIUM CHLOR 20 MEQ PREMIX 100 ML IV SCH (12:04)
[2018-04-05] MEDS: MESALAMINE 250 MG CAP PO SCH ×4 (13:00→22:14)
[2018-04-05] MEDS: FAMOTIDINE 20 MG TAB PO SCH ×2 (13:21→22:19)
[2018-04-05] MEDS: HYDROCHLOROTHIAZIDE 25 MG TAB PO SCH (13:21)
[2018-04-05] MEDS: predniSONE 10 MG TAB PO SCH (13:21)
[2018-04-05] MEDS: LISINOPRIL 20 MG TAB PO SCH (13:21)
--- NOTE | 2018-04-05 16:02 | RADRPT ---
EXAM DATE: 04/05/2018 3:58 PM EDT AGE/SEX: 87 years / Female INDICATIONS: Bilateral leg edema. CLINICAL DATA: This is the patient's initial encounter. Patient reports that signs and symptoms have been present for 1 day and indicates a pain score of 3/10. MEDICAL/SURGICAL HISTORY: Congestive heart failure. Chronic obstructive pulmonary disease. Ga stroesophageal reflux disease. Tachycardia. Hypertension. Hemorrhoids. Hiatal hernia. Left breast ca ncer. Non-Hodgkin's lymphoma. Radiation therapy. Chemotherapy. Blood transfusion. Cardiac arrest duri ng colonoscopy. Tonsillectomy. Cholecystectomy. Cataract extraction. Hernia repair. Bilateral total knee replacements. Left breast lumpectomy. COMPARISON: No prior exams available for comparison. TECHNIQUE: Venous ultrasound of both lower extremities was performed from the inguinal ligament to t he proximal calf. Real-time, color Doppler and spectral tracing, compression and augmentation techni ques were used. FINDINGS: Right Leg: Normal compression of the deep venous system from the inguinal region to the proximal shahid f. No echogenic clot is seen. Normal response of the venous system to augmentation and respiration. Left Leg: Normal compression of the deep venous system from the inguinal region to the proximal calf . No echogenic clot is seen. Normal response of the venous system to augmentation and respiration. Other: None. CONCLUSION: 1. Negative for deep venous thrombosis. Electronically signed by: Gene Urena MD 04/05/2018 4:00 PM EDT
[2018-04-05] MEDS: LATANOPROST 0.005% OPHT SOLN 2.5 ML BTL EACH EYE SCH (22:25)
[2018-04-06] VITALS (7 sets, daily range): BP systolic 149–181; BP diastolic 68–89; PULSE 79–96; RESP 16–18; TEMP 97.2–99.3; O2SAT 93–98
[2018-04-06] MEDS: CHLORHEXIDINE GLUCONATE 2 % 1 PACK (2 CLOTHS) TOP SCH (04:00)
[2018-04-06] MEDS: metroNIDAZOLE 500 MG TAB PO SCH ×3 (04:17→22:16)
[2018-04-06] MEDS: HEPARIN SODIUM - SQ 10,000 UNITS/ML VIAL SQ SCH ×2 (04:19→16:00)
[2018-04-06] MEDS: PIPERACIL-TAZO 3.375 GM PREMIX 50 ML IV SCH ×4 (04:24→22:17)
[2018-04-06 05:06] LABS: BICARBONATE 32.4 MEQ/L (21.0-32.0); CALCIUM 8.2 MG/DL (8.5-10.1); CREATININE 0.7 MG/DL (0.50-1.00)
[2018-04-06] MEDS: POTASSIUM CHLOR 20 MEQ PREMIX 100 ML IV SCH ×4 (06:38→13:18)
[2018-04-06] MEDS: HYDROCHLOROTHIAZIDE 25 MG TAB PO SCH (09:00)
--- NOTE | 2018-04-06 10:29 | HHI.PR ---
Subjective Remarks in no acute distress. has mild abdominal cramps. overall doing better than yesterday. no fever. daughters at the bedside. Objective Vitals Vital Signs Date Time Temp Pulse Resp B/P (MAP) Pulse Ox O2 Delivery O2 Flow Rate FiO2 04/06/18 09:42 150/80 (103) 04/06/18 08:00 97.2 88 17 181/89 (119) 98 04/06/18 04:00 99.3 88 18 149/80 (103) 95 04/06/18 00:00 97.5 96 18 167/68 (101) 95 04/05/18 20:00 97.5 92 19 128/60 (82) 94 04/05/18 16:00 97.2 80 17 142/72 (95) 94 04/05/18 12:00 97.9 87 17 160/70 (100) 95 I/O 04/05/18 04/05/18 04/05/18 04/06/18 04/06/18 04/06/18 06:59 14:59 22:59 06:59 14:59 22:59 Intake Total 240 ml 720 ml 950 ml Balance 240 ml 720 ml 950 ml Intake Oral 240 ml 720 ml 950 ml # Voids 3 10 5 # Bowel Movements 4 2 Result Diagram: 04/04/18 0755 04/06/18 0400 Objective Remarks GENERAL: This is a well-nourished, well-developed patient, in no apparent distress. CARDIOVASCULAR: Regular rate and regular rhythm without murmurs, gallops, or rubs. RESPIRATORY: Clear to auscultation. Breath sounds equal bilaterally. No wheezes , rales, or rhonchi. GASTROINTESTINAL: Abdomen soft, non-tender, nondistended. Normal, active bowel sounds MUSCULOSKELETAL: Extremities with bilateral pedal edema. NEURO: Alert & Oriented x4 to person, place, time, situation. Moves all ext x4 Medications and IVs Inpatient Medications Acetaminophen (Tylenol) 650 mg Q4H PRN PO SEE LABEL COMMENTS Last administered on 04/01/18at 21:59; Start 04/01/18 at 08:00; Stop 04/01/18 at 22:00; Status DC Albumin Human 50 ml @ 60 mls/hr Q12H IV Last administered on 04/01/18at 04:18; Start 03/31/18 at 16:00; Stop 04/01/18 at 08:05; Status DC Albuterol/ Ipratropium (Duoneb Neb) 1 ampule Q4HR NEB PRN INH WHEEZING; Start 03/31/18 at 10:00 Chlorhexidine Gluconate (Chlorhexidine 2% Cloth) 3 pack UNSCH PRN TOP HYGIENIC CARE; Start 03/31/18 at 10:00 Famotidine (Pepcid Inj) 10 mg Q12HR IV PUSH Last administered on 04/01/18at 21: 59; Start 03/31/18 at 21:00; Stop 04/02/18 at 08:09; Status DC Famotidine (Pepcid) 10 mg BID PO Last administered on 04/05/18at 22:19; Start at 09:00 Furosemide (Lasix Inj) 20 mg ONCE ONCE IV PUSH Last administered on 04/01/18at 12:17; Start 04/01/18 at 08:00; Stop 04/01/18 at 08:01; Status DC Heparin Sodium (Porcine) (Heparin Inj) 5,000 units Q12H SQ Last administered on 04/06/18at 04:19; Start 03/31/18 at 16:00 Hydrochlorothiazide (Hydrodiuril) 25 mg DAILY PO Last administered on at 13:21; Start 04/02/18 at 09:00 Hydrocortisone Acetate (Hemorrhoidal Hc Supp) 25 mg TID RECTAL Last administered on 04/04/18at 09:24; Start 04/02/18 at 09:00; Stop 04/04/18 at 14:05 ; Status DC Hydrocortisone Sodium Succinate (SoluCORTEF INJ) 50 mg Q12HR IV PUSH Last administered on 04/04/18at 09:22; Start 04/03/18 at 09:00; Stop 04/04/18 at 11:01 ; Status DC Hydromorphone HCl (Dilaudid Pf Inj) 0.2 mg Q4H PRN IV PUSH pain 8-10 or not taking po Last administered on 04/01/18at 15:29; Start 03/31/18 at 22:45; Stop at 08:09; Status DC Labetalol HCl (Trandate Inj) 10 mg Q4H PRN IV PUSH SBP>160, DBP>90 Last administered on 04/03/18 04:28; Start 04/03/18 at 04:15 Latanoprost (Xalatan 0.005% Opth Soln) 1 drop HS EACH EYE Last administered on 04/05/18at 22:25; Start 04/02/18 at 21:00 Lisinopril (Prinivil) 20 mg DAILY PO Last administered on 04/05/18at 13:21; Start 04/05/18 at 09:00 Mesalamine (Pentasa Sr) 1,000 mg QID PO Last administered on 04/05/18at 22:14; Start 04/02/18 at 09:00 Metronidazole (Flagyl) 500 mg Q8HR PO Last administered on 04/06/18 04:17; Start 04/02/18 at 14:00 Miscellaneous (Pill Splitter) 1 ea UNSCH PRN OTHER SEE LABEL COMMENTS; Start at 08:30 Miscellaneous Information ([facility] [place]) 1 Q361D XX Last administered on 03/31/18at 10:22; Start 03/31/18 at 10:00 Norepinephrine Bitartrate 250 ml @ 7.5 mls/hr TITRATE PRN IV Blood pressure management Last administered on 03/31/18at 10:55; Start 03/31/18 at 13:30; Stop 04/02/18 at 08:09; Status DC Piperacillin Sod/ Tazobactam Sod 50 ml @ 100 mls/hr Q6H IV Last administered on 04/06/18at 04:24; Start 04/02/18 at 15:00 Potassium Bicarb/ Potassium Chloride (K-Lyte Cl Eff) 25 meq ONCE ONCE PO ; Start 04/05/18 at 15:00; Stop 04/05/18 at 15:01; Status DC Potassium Chloride 100 ml @ 50 mls/hr Q2H IV Last administered on 04/06/18at 06 :38; Start 04/06/18 at 06:30; Stop 04/06/18 at 12:29 Potassium Chloride (KCl) 40 meq ONCE ONCE PO ; Start 04/03/18 at 13:00; Stop at 13:01; Status DC Prednisone (Deltasone) 40 mg DAILY PO Last administered on 04/05/18at 13:21; Start 04/05/18 at 09:00 Prochlorperazine Edisylate (Compazine Inj) 5 mg Q8H PRN IV NAUSEA OR VOMITING Last administered on 04/03/18 14:57; Start 04/03/18 at 14:45 Sodium Chloride 250 ml @ 15 mls/hr ONCE ONCE IV Last administered on 12:17; Start 04/01/18 at 08:00; Stop 04/02/18 at 00:39; Status DC Sodium Chloride (NS Flush) 2 ml BID IV FLUSH Last administered on 04/05/18at 22: 29; Start 03/31/18 at 21:00 Terbutaline Sulfate (Brethine Inj) 1 mg UNSCH PRN SQ For Extravasation; Start 03/31/18 at 11:45 Timolol Maleate (Timoptic 0.5% Opt Soln) 1 drop BID EACH EYE Last administered on 04/05/18 22:25; Start 04/02/18 at 09:00 Vasopressin 40 units/Dextrose 100 ml @ 3 mls/hr Q24H IV Last administered on 14:31; Start 03/31/18 at 13:24; Stop 04/02/18 at 08:09; Status DC A/P Assessment and Plan A/P Encephalopathy- resolved Suspected septic shock- suspect colitis- of note one bottle of blood cultures on 03/31 positive for strep group A- however the repeated blood cultures negative so far. will deescalate the antibiotic regimen tomorrow if stable. continue prednisone ; will taper down slowly. of note evaluated by GI and colorectal surgery- no interventions at this time. Hypokalemia; replace and monitor.check magnesium level. Hypertension; better today- continue lisinopril and monitor. bilateral pedal edema; DVT ruled out- start on low dose diuretic and close monitoring of electrolytes. DVT prophylaxis; subq Heparin continue PT/OT. Discharge Planning dc planning; rehab tomorrow if BP and pain is better and electrolyte abnormalities corrected. Chidi Quiñonez MD Apr 06, 2018 10:29
[2018-04-06] MEDS: MESALAMINE 250 MG CAP PO SCH ×4 (10:39→22:16)
[2018-04-06] MEDS: FAMOTIDINE 20 MG TAB PO SCH ×2 (10:40→22:17)
[2018-04-06] MEDS: predniSONE 10 MG TAB PO SCH (10:40)
[2018-04-06] MEDS: LISINOPRIL 20 MG TAB PO SCH (10:41)
[2018-04-06] MEDS: FUROSEMIDE 20 MG TAB PO SCH (10:41)
[2018-04-06] MEDS: SODIUM CHLORIDE 0.9% FLUSH 10 ML FLUSH IV FLUSH SCH ×2 (10:41→22:31)
[2018-04-06] MEDS: TIMOLOL MALEATE 0.5% OPHT SOLN 5 ML BTL EACH EYE SCH ×2 (10:43→22:19)
[2018-04-06] MEDS: LATANOPROST 0.005% OPHT SOLN 2.5 ML BTL EACH EYE SCH (22:19)
[2018-04-06] MEDS ORDERED: POTASSIUM CHLOR 20 MEQ PREMIX 100 ML IV SCH (23:00)
[2018-04-07] VITALS: BP 136/80; PULSE 82; RESP 18; TEMP 97.9; O2SAT 98
[2018-04-07] MEDS: PIPERACIL-TAZO 3.375 GM PREMIX 50 ML IV SCH ×3 (03:01→15:04)
[2018-04-07] MEDS: CHLORHEXIDINE GLUCONATE 2 % 1 PACK (2 CLOTHS) TOP SCH (03:09)
[2018-04-07] MEDS: metroNIDAZOLE 500 MG TAB PO SCH ×2 (06:00→13:32)
[2018-04-07] MEDS: HEPARIN SODIUM - SQ 10,000 UNITS/ML VIAL SQ SCH ×2 (06:01→15:04)
[2018-04-07 08:00] VITALS: BP 206/86; PULSE 76; RESP 18; TEMP 97.9; O2SAT 95
[2018-04-07] MEDS ORDERED: ENALAPRILAT 1.25 MG/ML VIAL IV PUSH PRN (09:00)
[2018-04-07] MEDS: predniSONE 10 MG TAB PO SCH (10:01)
[2018-04-07] MEDS: FAMOTIDINE 20 MG TAB PO SCH (10:02)
[2018-04-07] MEDS: LISINOPRIL 20 MG TAB PO SCH (10:02)
[2018-04-07] MEDS: MESALAMINE 250 MG CAP PO SCH ×2 (10:02→13:32)
[2018-04-07] MEDS: FUROSEMIDE 20 MG TAB PO SCH (10:02)
[2018-04-07] MEDS: SODIUM CHLORIDE 0.9% FLUSH 10 ML FLUSH IV FLUSH SCH (10:03)
[2018-04-07] MEDS: TIMOLOL MALEATE 0.5% OPHT SOLN 5 ML BTL EACH EYE SCH (10:04)
[2018-04-07] MEDS ORDERED: Heparin Inj SQ (11:03)
[2018-04-07] MEDS ORDERED: LISI-515 PO (11:03)
[2018-04-07] MEDS ORDERED: FURO20TA PO (11:03)
[2018-04-07] MEDS ORDERED: LEVA500T33 PO (11:07)
[2018-04-07] MEDS ORDERED: PRED5TAB PO (11:09)
--- NOTE | 2018-04-07 11:17 | HHI.PR ---
Subjective Remarks in no acute distress. overall feeling better. abdominal cramps is better. daughters at the bedside. Objective Vitals Vital Signs Date Time Temp Pulse Resp B/P (MAP) Pulse Ox O2 Delivery O2 Flow Rate FiO2 04/07/18 08:00 97.9 76 18 206/86 (126) 95 04/07/18 02:06 Room Air 04/07/18 00:00 97.9 82 18 136/80 (98) 98 04/06/18 20:00 97.7 80 16 160/74 (102) 93 04/06/18 16:00 97.8 79 17 158/68 (98) 97 04/06/18 12:00 97.2 93 17 164/70 (101) 98 I/O 04/06/18 04/06/18 04/06/18 04/07/18 04/07/18 04/07/18 07:00 15:00 23:00 07:00 15:00 23:00 Intake Total 950 ml 1950 ml 390 ml Balance 950 ml 1950 ml 390 ml Intake Oral 950 ml 1800 ml 240 ml IV Total 150 ml 150 ml # Voids 5 2 2 # Bowel Movements 2 1 2 1 Result Diagram: 04/04/18 0755 04/06/18 1942 Imaging Last Impressions Lower Extremity Ultrasound 04/05/18 0000 Signed Impressions: CONCLUSION: 1. Negative for deep venous thrombosis. Chest X-Ray 04/01/18 0000 Signed Impressions: CONCLUSION: Bibasilar subsegmental atelectasis. Objective Remarks GENERAL: This is a well-nourished, well-developed patient, in no apparent distress. CARDIOVASCULAR: Regular rate and regular rhythm without murmurs, gallops, or rubs. RESPIRATORY: Clear to auscultation. Breath sounds equal bilaterally. No wheezes , rales, or rhonchi. GASTROINTESTINAL: Abdomen soft, non-tender, nondistended. Normal, active bowel sounds MUSCULOSKELETAL: Extremities with bilateral pedal edema. NEURO: Alert & Oriented x4 to person, place, time, situation. Moves all ext x4 Medications and IVs Inpatient Medications Acetaminophen (Tylenol) 650 mg Q4H PRN PO SEE LABEL COMMENTS Last administered on 04/01/18at 21:59; Start 04/01/18 at 08:00; Stop 04/01/18 at 22:00; Status DC Albumin Human 50 ml @ 60 mls/hr Q12H IV Last administered on 04/01/18at 04:18; Start 03/31/18 at 16:00; Stop 04/01/18 at 08:05; Status DC Albuterol/ Ipratropium (Duoneb Neb) 1 ampule Q4HR NEB PRN INH WHEEZING; Start 03/31/18 at 10:00 Chlorhexidine Gluconate (Chlorhexidine 2% Cloth) 3 pack UNSCH PRN TOP HYGIENIC CARE; Start 03/31/18 at 10:00 Enalaprilat (Vasotec Inj) 1.25 mg Q8H PRN IV PUSH SBP> OR = 180, DBP> OR = 100 Last administered on 04/07/18at 10:03; Start 04/07/18 at 09:00 Famotidine (Pepcid Inj) 10 mg Q12HR IV PUSH Last administered on 04/01/18at 21: 59; Start 03/31/18 at 21:00; Stop 04/02/18 at 08:09; Status DC Famotidine (Pepcid) 10 mg BID PO Last administered on 04/07/18at 10:02; Start at 09:00 Furosemide (Lasix Inj) 20 mg ONCE ONCE IV PUSH Last administered on 04/01/18at 12:17; Start 04/01/18 at 08:00; Stop 04/01/18 at 08:01; Status DC Furosemide (Lasix) 20 mg DAILY PO Last administered on 04/07/18at 10:02; Start 04/06/18 at 11:00 Heparin Sodium (Porcine) (Heparin Inj) 5,000 units Q12H SQ Last administered on 04/07/18at 06:01; Start 03/31/18 at 16:00 Hydrochlorothiazide (Hydrodiuril) 25 mg DAILY PO Last administered on at 13:21; Start 04/02/18 at 09:00; Status Future Hold Hydrocortisone Acetate (Hemorrhoidal Hc Supp) 25 mg TID RECTAL Last administered on 04/04/18at 09:24; Start 04/02/18 at 09:00; Stop 04/04/18 at 14:05 ; Status DC Hydrocortisone Sodium Succinate (SoluCORTEF INJ) 50 mg Q12HR IV PUSH Last administered on 04/04/18at 09:22; Start 04/03/18 at 09:00; Stop 04/04/18 at 11:01 ; Status DC Hydromorphone HCl (Dilaudid Pf Inj) 0.2 mg Q4H PRN IV PUSH pain 8-10 or not taking po Last administered on 04/01/18 15:29; Start 03/31/18 at 22:45; Stop at 08:09; Status DC Labetalol HCl (Trandate Inj) 10 mg Q4H PRN IV PUSH SBP>160, DBP>90 Last administered on 04/03/18 04:28; Start 04/03/18 at 04:15 Latanoprost (Xalatan 0.005% Opth Soln) 1 drop HS EACH EYE Last administered on 04/06/18 22:19; Start 04/02/18 at 21:00 Lisinopril (Prinivil) 20 mg DAILY PO Last administered on 04/07/18 10:02; Start 04/05/18 at 09:00 Mesalamine (Pentasa Sr) 1,000 mg QID PO Last administered on 04/07/18 10:02; Start 04/02/18 at 09:00 Metronidazole (Flagyl) 500 mg Q8HR PO Last administered on 04/07/18 06:00; Start 04/02/18 at 14:00 Miscellaneous (Pill Splitter) 1 ea UNSCH PRN OTHER SEE LABEL COMMENTS; Start at 08:30 Miscellaneous Information ([facility] Nursing Information) 1 [id number] XX Last administered on 03/31/18at 10:22; Start 03/31/18 at 10:00 Norepinephrine Bitartrate 250 ml @ 7.5 mls/hr TITRATE PRN IV Blood pressure management Last administered on 03/31/18at 10:55; Start 03/31/18 at 13:30; Stop 04/02/18 at 08:09; Status DC Piperacillin Sod/ Tazobactam Sod 50 ml @ 100 mls/hr Q6H IV Last administered on 04/07/18at 10:03; Start 04/02/18 at 15:00 Potassium Bicarb/ Potassium Chloride (K-Lyte Cl Eff) 25 meq ONCE ONCE PO ; Start 04/05/18 at 15:00; Stop 04/05/18 at 15:01; Status DC Potassium Chloride 100 ml @ 50 mls/hr Q2H IV Last administered on 04/06/18at 22 :57; Start 04/06/18 at 23:00; Stop 04/07/18 at 00:59; Status DC Potassium Chloride (KCl) 40 meq ONCE ONCE PO ; Start 04/03/18 at 13:00; Stop at 13:01; Status DC Prednisone (Deltasone) 40 mg DAILY PO Last administered on 04/07/18at 10:01; Start 04/05/18 at 09:00 Prochlorperazine Edisylate (Compazine Inj) 5 mg Q8H PRN IV NAUSEA OR VOMITING Last administered on 04/03/18at 14:57; Start 04/03/18 at 14:45 Sodium Chloride 250 ml @ 15 mls/hr ONCE ONCE IV Last administered on at 12:17; Start 04/01/18 at 08:00; Stop 04/02/18 at 00:39; Status DC Sodium Chloride (NS Flush) 2 ml BID IV FLUSH Last administered on 04/07/18at 10: 03; Start 03/31/18 at 21:00 Terbutaline Sulfate (Brethine Inj) 1 mg UNSCH PRN SQ For Extravasation; Start 03/31/18 at 11:45 Timolol Maleate (Timoptic 0.5% Opt Soln) 1 drop BID EACH EYE Last administered on 04/07/18at 10:04; Start 04/02/18 at 09:00 Vasopressin 40 units/Dextrose 100 ml @ 3 mls/hr Q24H IV Last administered on at 14:31; Start 03/31/18 at 13:24; Stop 04/02/18 at 08:09; Status DC A/P Assessment and Plan A/P Encephalopathy- resolved Suspected septic shock- suspect colitis- of note one bottle of blood cultures on 03/31 positive for strep group A- however the repeated blood cultures negative so far. will taper down the steroids and change to po antibiotics upon discharge. of note evaluated by GI and colorectal surgery- no interventions at this time. Hypokalemia; improved. Hypertension;continue lisinopril- will add hydralazine- continue to monitor. bilateral pedal edema; DVT ruled out- start on low dose diuretic and close monitoring of electrolytes. DVT prophylaxis; subq Heparin continue PT/OT. Discharge Planning dc planning; acute rehab this afternoon if BP better. f/u; pcp, colorectal surgery, GI. see med list. d/w the patient and the daughters. time spent 35 min. Chidi Quiñonez MD Apr 07, 2018 11:17
[2018-04-07] MEDS ORDERED: METR-1 PO (11:21)
--- NOTE | 2018-04-07 11:21 | HHI.DS ---
Discharge Summary Admission Date Mar 31, 2018 at 09:45 Discharge Date: Apr 07, 2018 Admitting Diagnosis sepsis (1) Sepsis ICD Code: A41.9 - Sepsis, unspecified organism Diagnosis: Principal (2) Colitis ICD Code: K52.9 - Noninfective gastroenteritis and colitis, unspecified Diagnosis: Principal Procedures none Brief History - From Admission HPI Ms. Reina is a 87-year-old [id number] female with a past medical history pertinent for tonsillectomy, bilateral knee replacement, glaucoma, breast cancer with lumpectomy and radiation, gallbladder surgery, hernia surgery, COPD, CHF, non-Hodgkin's lymphoma with [address] 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 Patient's recent baseline is ambulating with a cane or walker and she is independent with all ADLs. Patient' s current clinical situation began back in October of this year when she began to have increasing weakness and respiratory infections. In January the patient had significant arm pain and was given steroid injections as an outpatient, patient developed thrush and at that time lesions around her anus and vaginal area performed. An outpatient tissue biopsy was done by her [employer] and patient was put on antibiotics, although later discontinued antibiotics after the culture showed it was resistant to penicillin. The lesions continued to form on the vaginal and anal area, the patient also started developing significant mucus-like stools with bowel leakage. Weakness was increasing and weight loss developed, patient also had disorientation at times. On February 23 the patient was taken to [facility] ER and admitted with diagnosed with inflammatory colitis. Patient was discharged from [facility] February 25, 2018, with directions to follow-up with GI. On March 16, 2018 patient presented to [place] emergency room with abdominal pain, diarrhea, weight loss, and lack of appetite. Patient is a positive guaiac stool in the emergency department was ordered a CT abdomen and pelvis which revealed acute distal descending and sigmoid inflammatory changes, as well as a 2.4 area of decreased density in the central portion of the liver, and a 1.5 cystic lesion on the head of the pancreas, patient was also started on any Protonix drip and GI was consulted. The patient's family previously declined workup of the pancreatic lesion. Patient underwent a flexible sigmoidoscopy on 03/[address] Alfonso and biopsy taken in the time revealed hyperplastic polyps. On morning of 03/30 patient developed altered mental status and subsequently spiked a fever of 102.1. Rapid response team was called and patient underwent chest x-ray, CT abdomen pelvis labs and was transferred to the ICU. Patient was evaluated by myself on arrival to the ICU. She was initially on a nonrebreather facemask when was drowsy though easily arousable knew she was in the hospital. She did appear slightly disoriented initially however this gradually improved. Following arrival to the ICU patient spiked temperature 103.1. She was given 1 g IV Ofirmev, stat blood cultures were ordered and initiated on empiric antibiotic coverage with IV Zosyn. A chest x-ray was essentially clear with no obvious infiltrates per my discussion with radiology. CT abdomen pelvis showed some thickening of the sigmoid colon consistent with a prior history of colitis. Patient had not had any diarrhea or rectal bleeding or [facility] per my discussion with Dr. Lambert. Patient subsequently developed hypotension for which she received 2 L normal saline bolus and was started on Levophed for pressor support. Past Surgical/Medical History Past Surgery: Yes (L LUMPECTOMY) Major surgery in last 100 days: No Hx Anesthesia Reactions: No Hx Orthopedic Surgery: Yes (BILAT TOTAL KNEES) Hx Cardiac Surgery: No Hx Chest Surgery: No Hx Abdominal Surgery: Yes (gallblader removal, hernia repair) Hx Genitourinary Surgery: No Hx Gynecologic Surgery: No Hx Endocrine Surgery: No Hx Eye Surgery: Yes (CATARACT SURGERY) Hx Ear Surgery: No Hx Oral Surgery: No Hx of Neuro Prob: Yes Hx Seizures: No Cephalgia (Headaches): No Hx Migraines: No Hx Head Injury: No Hx Falls: Yes (2 weeks ago) Hx Cerebrovascular Accident: No Hx Dizziness: No Hx Numbness: No Hx of Musculoskeletal Pro: Yes (HERNIATED DISC LOWER BACK, osteoarthritis) Hx Arthritis: Yes Hx Osteoporosis: Yes Hx Neck Problems: No Hx Back Problem: Yes (sciatica) Hx of Cardiovascular Prob: Yes Hypertension (High Blood Press: Yes Hx Clotting Problems: No Hx Chest Pain: No Hx Lightheadedness: Yes Hx Congestive Heart Failure: Yes Syncope (Fainting): No Hx of Respiratory Problem: Yes Hx Asthma: No Hx Wheezing: No Hx Chronic Obstructive Pulmona: Yes Hx Dyspnea: Yes Hx Snoring: No Hx Emphysema: No Hx Sleep Apnea: No Hx of GI Problems: Yes (hemorrhoids) Hx Heartburn: Yes Hx Gastroesophageal Reflux: Yes Hx Hiatal Hernia: Yes Hx Ulcer: No Hx Liver Disease: No Hx Gallbladder Disease: Yes (gallblader removed) Hx Inflammatory Bowel Disease: Yes Hx of Problems: No Hx of Immuno Disor: No Hx Autoimmune Disease: No Hx of Endocrine Problems: No Hx Thyroid Disease: No Hx Diabetes: No Hx of Eye Probl: Yes Hx of Glaucoma: Bilateral Hx of Hearing or Ear Problems: No Hx Dental Problems: Yes (TEMPORARY BRIDGE) Hx Psychiatric Problems: Yes Hx Anxiety: Yes Hx Depression: Yes Hx Blood Dyscrasias: No Hx of MDRO: No Hx of MRSA: No Hx of VRE: No Hx of Tuberculosis: No Hx Chicken Pox: Yes (CHILDHOOD) Hx Measles: No Hx of Body/Medical Devices: Yes Hx Pacemaker: No Hx Internal Defibrillator: No Hx Joint Replacement: Yes (BILAT KNEE REPLACEMENT) Blood Transfusion History Hx Blood Transfusions: Yes Hx Blood Transfusion Reaction: No Allergies: Coded Allergies: Sulfa (Sulfonamide Antibiotics) (Unverified Allergy, Severe, Rash, 03/16/18) Active Medications Active Medications Acetaminophen (Tylenol) 650 mg Q4H PRN PO; Start 03/21/18 at 14:15; Status UNV Bisacodyl (Dulcolax Supp) 10 mg DAILY PRN RECTAL; Start 03/21/18 at 14:15; Status UNV Duloxetine HCl (Cymbalta Dr) 60 mg DAILY PO; Start 03/22/18 at 09:00; Status UNV Fluconazole (Diflucan) 200 mg DAILY PO; Start 03/22/18 at 09:00; Stop 04/01/18 at 08:59; Status UNV Furosemide (Lasix) 20 mg DAILY PO; Start 03/22/18 at 09:00; Status UNV Hydrocortisone Acetate (Hemorrhoidal Hc Supp) 25 mg TID RECTAL; Start 03/21/18 at 18:00; Status UNV Lactulose (Lactulose Liq) 30 ml DAILY PRN PO; Start 03/21/18 at 14:15; Status UNV Latanoprost (Xalatan 0.005% Opth Soln) 1 drop HS EACH EYE; Start 03/21/18 at 21: 00; Status UNV Magnesium Hydroxide (Milk Of Magnesia Liq) 30 ml Q12H PRN PO; Start 03/21/18 at 14:15; Status UNV Mesalamine (Pentasa Sr) 1,000 mg QID PO; Start 03/21/18 at 18:00; Status UNV Ondansetron HCl (Zofran Odt) 4 mg Q6H PRN SL; Start 03/21/18 at 14:15; Status UNV Pantoprazole Sodium (Protonix) 40 mg DAILY PO; Start 03/22/18 at 09:00; Status UNV Prednisone (Deltasone) 40 mg Taper DAILY PO; Start 03/22/18 at 09:00; Stop 05/06 at 08:59; Status UNV Senna/Docusate Sodium (Elana-Colace) 1 tab BID PO; Start 03/21/18 at 21:00; Status UNV Sennosides (Senokot) 17.2 mg Q12H PRN PO; Start 03/21/18 at 14:15; Status UNV Simethicone (Phazyme Chew) 125 mg QID PO; Start 03/21/18 at 18:00; Status UNV Timolol Maleate (Timoptic 0.5% Opth Soln) 1 drop BID EACH EYE; Start 03/21/18 at 21:00; Status UNV Family/Social History Family History Patient's mother of polycystic kidney disease in her 50s. Patient's father of possible stomach cancer in his 70s. Smoking Status: Former Smoker (Patient was a half a pack per day smoker who quit in 1997.) Alcohol Use: Weekly (Patient drinks 2-3 times a week although has not done so in a while due to not feeling well.) Hx Substance Use: No Employment Status: Retired Pre-Hospital Living Setting: Home (Patient lives with her daughter.) CBC/BMP: 04/04/18 0755 04/06/18 1942 Significant Findings Laboratory Tests Test 04/05/18 07:22 04/06/18 04:00 04/06/18 19:42 Potassium Level 2.7 MEQ/L (3.5-5.1) 2.8 MEQ/L (3.5-5.1) Calcium Level 8.2 MG/DL (8.5-10.1) Carbon Dioxide Level 32.4 MEQ/L (21.0-32.0) Estimat Glomerular Filtration Rate 79 ML/MIN (>89) Imaging Last Impressions Lower Extremity Ultrasound 04/05/18 0000 Signed Impressions: CONCLUSION: 1. Negative for deep venous thrombosis. Chest X-Ray 04/01/18 0000 Signed Impressions: CONCLUSION: Bibasilar subsegmental atelectasis. PE at Discharge GENERAL: This is a well-nourished, well-developed patient, in no apparent distress. CARDIOVASCULAR: Regular rate and regular rhythm without murmurs, gallops, or rubs. RESPIRATORY: Clear to auscultation. Breath sounds equal bilaterally. No wheezes , rales, or rhonchi. GASTROINTESTINAL: Abdomen soft, non-tender, nondistended. Normal, active bowel sounds MUSCULOSKELETAL: Extremities with bilateral pedal edema. NEURO: Alert & Oriented x4 to person, place, time, situation. Moves all ext x4 Hospital Course patient was admitted with encephalopathy and septic shock-suspect colitis- of note one bottle of blood cultures on 03/31 positive for strep group A- however the repeated blood cultures negative so far. patient was treated with IV antibiotics and started on IV steroids- this was switched to po prednisone which will be gradually tapered off. she received potassium supplementation for hypokalemia and her BP regimen was adjusted. she was seen by colorectal surgery and GI during this admission. she will be discharged back to inpatient rehab. Pt Condition on Discharge: Fair Discharge Disposition: Rehab Inpatient Discharge Time: > 30 minutes Discharge Instructions DIET: Follow Instructions for: Heart Healthy Diet Activities you can perform: Regular-No Restrictions Chidi Quiñonez MD Apr 07, 2018 11:21
[2018-04-07] MEDS ORDERED: HYDR-3799 PO (11:22)
[2018-04-07 12:00] VITALS: BP 165/70; PULSE 76; RESP 18; TEMP 97.3; O2SAT 96
[2018-04-07] MEDS ORDERED: POTA-163 PO (14:48)
[2018-04-07 14:57] VITALS: BP 156/67; PULSE 71; RESP 20; TEMP 97.5; O2SAT 98
[2018-04-08 08:00] VITALS: BP 147/93; PULSE 72; RESP 18; TEMP 98.6; O2SAT 96
[2018-04-08 12:00] VITALS: BP 133/73; PULSE 75; RESP 17; TEMP 97.7; O2SAT 100
== END 2018-04-07 16:41 | DRG 871 ==
LOC: N03B 09:45 → N07B 04-03 17:43
PROVIDERS: ADMIT Internal Medicine; ATTEND Internal Medicine
PROC: 0DBN8ZX Excision of Sigmoid Colon, Via Natural or Artificial Opening Endoscopic, Diagnostic (ICD-10-PCS; principal; 2018-03-29)
PROC: 30233N1 Transfusion of Nonautologous Red Blood Cells into Peripheral Vein, Percutaneous Approach (ICD-10-PCS; 2018-04-01)
DX: A41.9 Sepsis, unspecified organism (principal); G93.40 Encephalopathy, unspecified; R65.21 Severe sepsis with septic shock; K57.92 Diverticulitis of intestine, part unspecified, without perforation or abscess without bleeding; J98.11 Atelectasis; K51.50 Left sided colitis without complications; Z86.74 Personal history of sudden cardiac arrest; J44.9 Chronic obstructive pulmonary disease, unspecified; D72.823 Leukemoid reaction; H40.9 Unspecified glaucoma; M81.0 Age-related osteoporosis without current pathological fracture; K21.9 Gastro-esophageal reflux disease without esophagitis; K60.2 Anal fissure, unspecified; E87.6 Hypokalemia; K52.9 Noninfective gastroenteritis and colitis, unspecified; I11.0 Hypertensive heart disease with heart failure; M54.30 Sciatica, unspecified side; I50.9 Heart failure, unspecified; M47.812 Spondylosis without myelopathy or radiculopathy, cervical region; Z96.653 Presence of artificial knee joint, bilateral; Z79.52 Long term (current) use of systemic steroids; Z79.899 Other long term (current) drug therapy; Z85.3 Personal history of malignant neoplasm of breast; Z92.3 Personal history of irradiation; Z85.72 Personal history of non-Hodgkin lymphomas; K62.1 Rectal polyp; K64.4 Residual hemorrhoidal skin tags; K62.89 Other specified diseases of anus and rectum
CPT/HCPCS: 36430; 71045; 80048; 80053; 81001; 83605; 83735; 84132; 84484; 85007; 85014; 85018; 85025; 85027; 85610; 85730; 86850; 86900; 86901; 86920; 87040; 87086; 87493; 87641; 93970; J0131; J0780; J1170; J1644; J1720; J1940; J2543; J3480; J7030; J7050; J7512; P9016; P9047